=== PATIENT | female | born 1960 | race Caucasian/White ===

== ENCOUNTER → 2020-02-12 | Outpatient (CLI) | payer MEDICARE, SELFPAY ==
--- NOTE | 2020-02-12 09:02 | RAD_ITS ---
STUDY: X-RAY - LUMBAR SPINE REASON FOR EXAM: Female, 59 years old. BACK PAIN, BILATERAL LEG PAIN AND WEAKNESS TECHNIQUE: 3 view(s) of the lumbar spine were obtained. COMPARISON: None FINDINGS: Normal lumbar lordosis. There is no substantial scoliosis. There is a grade 1 anterolisthesis of L4 relative to L5. There is endplate spondylosis of the visualized lower thoracic spine and L1. Normal disc space heights. The soft tissue structures are unremarkable. RAD/Lumbar Spine 2 or 3 Views IMPRESSION: Grade 1 anterolisthesis of L4 relative to L5. No evidence of associated spondylolysis. Disc spacing is preserved. Diffuse endplate spondylosis of the visualized lower thoracic spine and L1. Electronically Signed: Manish Darling MD at 20:38 EDT , Service support ,
== END | disposition home or self-care (01) ==
PROVIDERS: Referring Provider Anesthesiology Pain Medicine; Visit Provider Anesthesiology Pain Medicine
DX: M54.5 Low back pain (principal)
CPT/HCPCS: 72100

== ENCOUNTER 2020-02-18 10:19 | Outpatient (CLI) | payer MEDICARE, SELFPAY ==
--- NOTE | 2020-02-18 10:40 | MRI_ITS ---
STUDY: MRI LUMBAR SPINE WITHOUT CONTRAST REASON FOR EXAM: Female, 59 years old. BACK AND bilateral LEG PAIN TECHNIQUE: Standardized fat and water weighted pulse sequences were obtained in the sagittal and axial planes. COMPARISON: X-ray 02/12/2020 FINDINGS: T12-L1: Normal endplates. Normal disc height, hydration and morphology. Normal bilateral facet joints. Normal central canal and bilateral lateral recesses. Normal bilateral intervertebral neural foramina. Normal lumbar lordosis. There is no substantial scoliosis. Normal conus medullaris that terminates at the L1/L2. L1-2: Normal endplates. Normal disc height, hydration and morphology. Normal bilateral facet joints. Normal central canal and bilateral lateral recesses. Normal bilateral intervertebral neural foramina. L2-3: Normal endplates. Normal disc height, hydration and morphology. Normal bilateral facet joints. Normal central canal and bilateral lateral recesses. Normal bilateral intervertebral neural foramina. L3-4: Normal endplates. Normal disc height, hydration and morphology. Normal bilateral facet joints. Normal central canal and bilateral lateral recesses. Normal bilateral intervertebral neural foramina. L4-5: Moderate bilateral facet hypertrophy with the moderate ligament flavum hypertrophy. Mild bilobed disc protrusion produces mild spinal stenosis and moderate bilateral neural foraminal stenosis with abutment of the exiting L4 nerve roots bilaterally. L5-S1: Normal endplates. Normal disc height, hydration and morphology. Normal bilateral facet joints. Normal central canal and bilateral lateral recesses. Normal bilateral intervertebral neural foramina. Normal visualized sacral ala. Normal visualized paraspinous soft tissue structures. MRI/Spine Lumbar (Routine) IMPRESSION: Focal degenerative disc disease at L4/L5 as described above Electronically Signed: Eldon Cameron MD at 17:11 EDT Tel , Service support ,
== END 2020-04-09 19:00 | disposition home or self-care (01) ==
PROVIDERS: Referring Provider Anesthesiology Pain Medicine; Visit Provider Anesthesiology Pain Medicine
DX: M54.9 Dorsalgia, unspecified (principal); M79.606 Pain in leg, unspecified
CPT/HCPCS: 72148

== ENCOUNTER 2020-03-31 10:00 | Outpatient (RCR) | payer MEDICARE, SELFPAY ==
--- NOTE | 2020-03-11 11:26 | HP.PTEVAL ---
Patient's Visit Information AURORA SAWYER is a 59 year old F referred to Physical Therapy by Dr. Basil Waggoner MD with a diagnosis of BACK AND LEG PAIN. Date of Evaluation: 03/11/20 Physical Therapist: Nany Vogel PT, Cert MDT - Visit Plan Frequency: 2-3x /Week Duration: 4-6 Weeks Plan: AQUATIC THERAPY FOR PAIN RELIEF, POSTURE CORRECTION/STRENGTHENING, INSTRUCTION IN APPROPRIATE BODY MECHANICS AND ACTIVITY MODIFICATIONS. DLS STARTING WITH A NEUTRAL SPINE PROGRESSING ROM TOLERATED. HUNG LE ROM, STRETCHING AND STRENGTHENING. HEP INSTRUCTION. - Subjective Work/Leisure: UNEMPLOYEED. Disability: YES - FOR ABOUT 3 YEARS FOR HUNG SHOULDER DYSFUNCTION AND MULTI-JOINT ARTHRITIS. Present symptoms: HUNG LOW BACK AND HUNG LE SX'S RIGHT > LEFT. LE SX IS PAIN - NOT NUMBNESS OR TINGLING. Present since: YEARS. Pain Scale: WORST 9/10, LEAST 5/10. Currently: 6/10. Commenced as a result of: ARTHRITIS. Symptoms at onset: LOW BACK. Worse: WALKING, SITTING TOO LONG, BENDING, LIFTING, TWISTING, GETTING IN AND OUT OF THE TUB, RISING FROM SITTING, GETTING IN/OUT OF CAR, PROLONGED STANDING TO TRY TO COOK. Better: SITTING DOWN, ICE ON LOW BACK, HEAT ON LOW BACK, PAIN MEDICINE, LYING DOWN. Disturbed sleep: NO. Previous history/Previous treatment: PAIN MGMT, PHYSICAL THERAPY, INJECTIONS, ABLASION, CHIROPRACTOR - WITH LAST VISIT BEING ABOUT 2 MONTHS AGO. NO BACK SURGERY. RIGHT TKR ABOUT 10 YEARS AGO. ALL OF THESE INTERVENTIONS HAVE BEEN HELPFUL TO SOME DEGREE. WAS DOING PRETTY GOOD UNTIL MOVED HERE FROM [facility] IN JUN 2019. MOST RECENT ERICA WAS ABOUT 3 WEEKS AGO - ABOUT 50% HELPFUL. Coughing/sneezing/straining: POSITIVE. Gait: I WALK A LOT SLOWER AND PULL MY RIGHT LEG. DOES NOT USE ANY ASSISTIVE DEVICES. Difficulty initiating urinatin: YES - DR. WAGGONER IS AWARE. Accidents: FX'D NECK IN FALL ABOUT 20 YEARS AGO - NO SX. Unexplained weight loss: NO. Imaging: RECENT LUMBAR X-RAYS AND MRI'S - PATIENT REPORTS DR. WAGGONER TOLD HER THE SPACE FOR THE NERVES ARE NARROWED, SHE HAS A LOT OF ARTHRITIS AND THERE IS ESPECIALLY A PROBLEM AT L45. PMH: ARTHRITIS, ASTHMA, HUNG SHLD REPLACEMENTS, RIGHT TKR, ONE KIDNEY, HTN. OTHER: PATIENT REPORTS SHE WANTS TO GET BACK TO DOING THE THINGS SHE IS USE TO DOING. - Objective Sitting/Standing Posture: POOR. Lateral shift: NO. Relevant shift: N/A. Active Correction of posture: NE ACTIVELY BUT PASSIVELY IMMEDIATE DECREASE IN PAIN. Other Observations: INDEP GAIT INTO PT WITHOUT ANY ASSISTIVE DEVICES. DECREASED CADANCE. WIDE BASE OF SUPPORT. INDEP TRANSFER SIT TO STAND WITHOUT UE ASSIST BUT DIFFICULT AND PAINFUL. Motor deficit: HUNG LE STRENGTH GROSSLY 5/5 WITH MMT'ING EXCEPT RIGHT QUAD AND HUNG HIPS 4-/5. Sensory deficit: HUNG LE LIGHT TOUCH SENSATION INTACT AND SYMMETRICAL EXCEPT A SMALL AREA AROUND RIGHT KNEE SINCE TKR. ROM deficit: TIGHT HUNG HS'S AND GASTROC SOLEUS COMPLEX'S. RIGHT KNEE ROM IN SUPINE WITH A HEEL SLIDE = FULL EXT TO 109 DEG FLEX. LEFT KNEE 0 TO 121 DEG FLEX. Reflexes: NT. Dural Signs: NEGATIVE HUNG LE'S. Lumbar mvmt loss: flex - MOD. ext - MOD. R SG - MOD. L SG - MOD. PATIENT C/O INCREASED BACK AND POST LEG PAIN HUNG WITH LUMBAR FLEX AND EXT ROM TESTING. LIMITED MVMT BUT NO C/O INCREASED PAIN WITH LUMBAR HUNG SG TESTING. Core strength: POOR. TREATMENT: NEUROMUSCULAR REEDUCATION - RETRAINING OF MVMT AND POSTURE FOR SITTING, LYING AND STANDING ACTIVITIES. - Goals Goal 1:: DECREASE C/O BACK AND HUNG LE PAIN Goal Time Frame: 4-6 Weeks Goal 2:: IMPROVE PERSONAL CARE, LIFTING, WALKING, SITTING, STANDING, SOCIAL LIFE, TRAVEL AND HOMEMAKING FUNCTION. Goal Time Frame: 4-6 Weeks Goal 3:: INSTRUCT IN PROPHYLAXIS Goal Time Frame: 4-6 Weeks - Anticipated Interventions Patient/Client Instruction: Educate patient on: Condition, Plan of Care, Risk Factors, Benefits of Fitness Program For the Purpose of:: To improve self management Therapeutic Exercise to Include: Strength training, Body mechanics, Postural training, Flexibilty training, Neuromotor development, In an aquatic setting, Dynamic Lumbar Stabilization For the Purpose of:: To decrease pain, To improve muscle performance and motor function, To increase tolerance to activity/condition/position, To improve ability of physical actions for home/community/work/leisure, To improve gait and locomotor functions Thank you for the opportunity to evaluate your patient. For Medicare and Medicare HMO plans, please review the plan of care and approve it. It will need to be FAXED BACK to us at [phone] for Medicare purposes. For Medicare only, by signing this I certify the plan of care. Please let me know if there are questions or concerns regarding this plan of care. Physician Signature: Date:
--- NOTE | 2020-03-31 10:39 | HP.PTREVAL_ITS ---
Dr. Basil Ervin MD, It has been my pleasure to treat AURORA SAWYER over the last 7 visits for BACK AND LEG PAIN. Please see the progress note below for an update on the physical therapy plan of care! Subjective: PATIENT REPORTS SHE IS FEELING BETTER AND WANTS TO CONTINUE AQUATIC THERAPY. GOING OUT OF TOWN UNTIL 04/12/20. PATIENT REPORTS SHE HAS ACTUALLY BEEN ABLE TO DO HER WALKING [place] WHICH SHE WAS NOT ABLE TO DO AT ALL BEFORE. STATES SHE HAS ALSO BEEN ABLE TO STAND TO COOK IN THE KITCHEN INSTEAD OF SITTING ON A CHAIR. STILL GETTING UP TO 8/10 PAIN IN LOW BACK IF SHE DOES TOO MUCH OR BENDS WRONG. MOST OF THE PAIN IS IN THE BUTTOCK AREAS AND THE BACK OF THE LEGS. R>L. WHEN HER PAIN IS ITS LEAST SHE RATES IT 3/10. CONSTANT PAIN - ITS ALWAYS THERE. PATIENT IS EXPRESSING APPRECIATION FOR GETTING TO DO AQUATIC THERAPY. I FEEL SOME REALLY GOOD STUFF GOING ON. Objective/Function: PATIENT WAS SEEN TODAY FOR RE-ASSESSMENT OF PROGRESS TOWARD THE SET PT GOALS AND THE NEED FOR FURTHER PHYSICAL THERAPY VS READINESS FOR DISCHARGE. UPON EXAM TODAY: INDEP TRANSFER SIT TO STAND WITHOUT UE ASSIST BUT STILL A LITTLE PAINFUL. Motor deficit: HUNG LE STRENGTH GROSSLY 5/5 WITH MMT'ING EXCEPT RIGHT QUAD AND HUNG HIPS 4-/5. Sensory deficit: HUNG LE LIGHT TOUCH SENSATION INTACT AND SYMMETRICAL EXCEPT A SMALL AREA AROUND RIGHT KNEE SINCE TKR. ROM deficit: TIGHT HUNG HS'S AND GASTROC SOLEUS COMPLEX'S. RIGHT KNEE ROM IN SUPINE WITH A HEEL SLIDE = FULL EXT TO 108 DEG FLEX. LEFT KNEE 0 TO 120 DEG FLEX. Reflexes: NT. Dural Signs: NEGATIVE HUNG LE'S. Lumbar mvmt loss: flex - MIN. ext - MOD. R SG - MOD. L SG - MOD. PATIENT C/O INCREASED BACK AND POST LEG PAIN HUNG IN STANDING BEFORE ROM TESTING BUT NO C/O INCREASED PAIN WITH LUMBAR ROM TESTING TODAY. Core strength: POOR Plan Plan: Would recommend continued AT 1X/WE X 4-6 WEEKS at this time d/t progress made, however, room for greater improvements. Given I pool page to assist with transition to membership. *Add step ups next. *f/u with new HEP hip flexor/quad and LB stretches. AQUATIC THERAPY FOR PAIN RELIEF, POSTURE CORRECTION/STRENGTHENING, INSTRUCTION IN APPROPRIATE BODY MECHANICS AND ACTIVITY MODIFICATIONS. DLS STARTING WITH A NEUTRAL SPINE PROGRESSING ROM TOLERATED. HUNG LE ROM, STRETCHING AND STRENGTHENING. HEP INSTRUCTION. Goals Goal 1:: DECREASE C/O BACK AND HUNG LE PAIN Goal Time Frame: 4-6 Weeks Goal Progress: Progressing Goal 2:: IMPROVE PERSONAL CARE, LIFTING, WALKING, SITTING, STANDING, SOCIAL LIFE, TRAVEL AND HOMEMAKING FUNCTION. Goal Time Frame: 4-6 Weeks Goal Progress: Progressing Goal 3:: INSTRUCT IN PROPHYLAXIS Goal Time Frame: 4-6 Weeks Goal Progress: Progressing Anticipated Interventions Patient/Client Instruction: Educate patient on: Condition, Plan of Care, Risk Factors, Benefits of Fitness Program For the Purpose of:: To improve self management Therapeutic Exercise to Include: Strength training, Body mechanics, Postural training, Flexibilty training, Neuromotor development, In an aquatic setting, Dynamic Lumbar Stabilization For the Purpose of:: To decrease pain, To improve muscle performance and motor function, To increase tolerance to activity/condition/position, To improve ability of physical actions for home/community/work/leisure, To improve gait and locomotor functions Please do not hesitate to contact me at [phone] by phone or if you have questions or concerns regarding this new plan of care! Sincerely, Nany Vogel, PT, Cert MDT
--- NOTE | 2020-05-18 13:14 | HP.PT.NRP ---
AURORA SAWYER was seen in my office for initial evaluation on 03/11/20. The following Plan of Care was established for this patient: Initial Frequency: 2-3x /Week Initial Duration: 4-6 Weeks Patient/Client Instruction: Educate patient on: Condition, Plan of Care, Risk Factors, Benefits of Fitness Program For the Purpose of:: To improve self management Therapeutic Exercise to Include: Strength training, Body mechanics, Postural training, Flexibilty training, Neuromotor development, In an aquatic setting, Dynamic Lumbar Stabilization For the Purpose of:: To decrease pain, To improve muscle performance and motor function, To increase tolerance to activity/condition/position, To improve ability of physical actions for home/community/work/leisure, To improve gait and locomotor functions This patient was last seen in our office 03/31/20. Pertinent comments regarding their Physical therapy will appear below: 04/09/20 PATIENT CANCELLED CYNDIE'TS FOR NEXT WEEK DUE TO TESTING POSITIVE FOR COVID 19 ON 04/07/20. This patient has not returned to Physical Therapy and is appropriate to return to MD for further follow-up as needed. At this point I will be discontinuing this patient from physical therapy. I would be happy to see this patient again in the future if found appropriate by the physician. Thank you! Nany Vogel, PT, Cert MDT
== END 2020-03-31 19:00 | disposition home or self-care (01) ==
LOC: PT 10:00
PROVIDERS: Visit Provider Anesthesiology Pain Medicine
DX: M54.9 Dorsalgia, unspecified (principal); M79.606 Pain in leg, unspecified
CPT/HCPCS: 97112; 97113; 97162; 97164

== ENCOUNTER → 2020-04-01 | Outpatient (CLI) | payer MEDICARE, SELFPAY ==
[2016-08-06 16:03] VITALS: BMI 41.5
[2020-04-01 13:37] LABS: Amphetamine Urine VISTA NEGATIVE (<1000 ng/mL); Barbiturate Urine VISTA NEGATIVE (< 200 ng/mL); Benzodiazepine Urine VISTA NEGATIVE (< 200 ng/mL); Cocaine Urine VISTA NEGATIVE (< 300 ng/mL); Ecstacy Urine VISTA NEGATIVE (< 500 ng/mL); Methadone Urine VISTA NEGATIVE (< 300 ng/mL); PCP Urine VISTA NEGATIVE (< 25 ng/mL); THC Urine VISTA NEGATIVE (< 50 ng/mL); Vista UDS pH Range 6
== END | disposition home or self-care (01) ==
PROVIDERS: Referring Provider Anesthesiology Pain Medicine; Visit Provider Anesthesiology Pain Medicine
DX: F11.20 Opioid dependence, uncomplicated (principal)
CPT/HCPCS: 80307

== ENCOUNTER → 2020-04-05 | Outpatient (CLI) | payer MEDICARE, SELFPAY | END | disposition home or self-care (01) | LOC: MTDU 04-06 14:34 | PROVIDERS: PCP Family Medicine; Referring Provider Orthopaedic Surgery; Visit Provider Orthopaedic Surgery | DX: U07.1 COVID-19 (principal) | CPT/HCPCS: 87635; C9803; U0003 ==

== ENCOUNTER → 2020-08-02 10:38 | Outpatient (CLI) | payer MEDICARE, SELFPAY ==
[2020-08-02 12:40] LABS: Amphetamine Urine VISTA NEGATIVE (<1000 ng/mL); Barbiturate Urine VISTA NEGATIVE (< 200 ng/mL); Benzodiazepine Urine VISTA NEGATIVE (< 200 ng/mL); Cocaine Urine VISTA NEGATIVE (< 300 ng/mL); Ecstacy Urine VISTA NEGATIVE (< 500 ng/mL); Methadone Urine VISTA NEGATIVE (< 300 ng/mL); PCP Urine VISTA NEGATIVE (< 25 ng/mL); THC Urine VISTA NEGATIVE (< 50 ng/mL); Vista UDS pH Range 5
== END ==
PROVIDERS: PCP Family Medicine; Referring Provider Anesthesiology Pain Medicine; Visit Provider Anesthesiology Pain Medicine
DX: F11.20 Opioid dependence, uncomplicated (principal)
CPT/HCPCS: 80307

== ENCOUNTER → 2020-08-31 13:27 | Outpatient (CLI) | payer MEDICARE, SELFPAY ==
[2016-08-06 16:03] VITALS: BMI 41.5
--- NOTE | 2020-08-31 13:30 | RAD_ITS ---
STUDY: X-RAY - PELVIS AND RIGHT HIP REASON FOR EXAM: Female, 60 years old. HIP PAIN -- ORDER SAYS R SIDE, PT SAYS L SIDE TECHNIQUE: 3 views of the pelvis and hip. COMPARISON: 08/06/2016. FINDINGS: No acute fracture, dislocation or osseous destruction. Moderate bilateral hip joint space narrowing. No significant soft tissue swelling. IMPRESSION: No acute osseous abnormality. Moderate bilateral hip arthrosis. Electronically Signed: Kunal Cespedes MD at 17:16 EDT Tel , Service support , RAD/HIP, UNI W/ Pelvis 2-3 Views
== END ==
PROVIDERS: PCP Family Medicine; Referring Provider Anesthesiology Pain Medicine; Visit Provider Anesthesiology Pain Medicine
DX: M25.551 Pain in right hip (principal)
CPT/HCPCS: 73502

== ENCOUNTER → 2020-09-27 11:47 | Outpatient (CLI) | payer MEDICARE, SELFPAY ==
[2016-08-06 16:03] VITALS: BMI 41.5
--- NOTE | 2020-09-27 11:50 | RAD_ITS ---
STUDY: X-RAY - LUMBAR SPINE REASON FOR EXAM: Female, 60 years old. BACK PAIN TECHNIQUE: 2 view(s) of the lumbar spine were obtained. COMPARISON: 02/12/2020 FINDINGS: Normal lumbar lordosis. There is no substantial scoliosis. There is a normal alignment of the vertebrae from L1 L4. There is a grade 1 spondylolisthesis at L4-5. There is anatomic alignment from L5 to S1.. There is multilevel endplate spondylosis of the lumbar vertebrae. Normal disc space heights. There is no demonstrated fracture. The soft tissue structures are unremarkable. RAD/Lumbar Spine 2 or 3 Views IMPRESSION: Degenerative changes of the spine, as detailed above. No acute fracture Grade 1 spondylolisthesis at L4-5 Electronically Signed: Juan Mora MD at 12:15 EDT , Service support ,
== END ==
PROVIDERS: PCP Family Medicine; Referring Provider Anesthesiology Pain Medicine; Visit Provider Anesthesiology Pain Medicine
DX: M54.5 Low back pain (principal)
CPT/HCPCS: 72100

== ENCOUNTER → 2021-02-16 12:45 | Outpatient (CLI) | payer MEDICARE, SELFPAY ==
[2021-02-16 14:01] LABS: Amphetamine Urine VISTA NEGATIVE (<1000 ng/mL); Barbiturate Urine VISTA NEGATIVE (< 200 ng/mL); Benzodiazepine Urine VISTA NEGATIVE (< 200 ng/mL); Cocaine Urine VISTA NEGATIVE (< 300 ng/mL); Ecstacy Urine VISTA NEGATIVE (< 500 ng/mL); Methadone Urine VISTA NEGATIVE (< 300 ng/mL); PCP Urine VISTA NEGATIVE (< 25 ng/mL); THC Urine VISTA POSITIVE (< 50 ng/mL); Vista UDS pH Range 5
== END ==
PROVIDERS: PCP Family Medicine; Referring Provider Anesthesiology Pain Medicine; Visit Provider Anesthesiology Pain Medicine
DX: F11.20 Opioid dependence, uncomplicated (principal)
CPT/HCPCS: 80307

== ENCOUNTER 2021-07-05 16:58 | Emergency (ER) | payer MEDICARE, SELFPAY ==
[2021-07-05 16:58] VITALS: BP 150/102; PULSE 105; RESP 24; TEMP 36.4; O2SAT 97; BMI 44.6
[2021-07-05 17:00] VITALS: BP 150/102; PULSE 105; RESP 24; TEMP 36.4; O2SAT 97
--- NOTE | 2021-07-05 17:36 | EDS_ITS ---
HPI History of Present Illness Chief Complaint: Shortness of Breath Detail of Chief Complaint: Shortness of breath Informant: patient Narrative Narrative: Patient presents to the emergency department with complaint of shortness of breath for the last 4 to 5 days. Patient states she was diagnosed with COVID-19 5 or 6 days ago. Patient's had symptoms since the day she got her booster which was June 21. Patient complains of a dry cough. She just finished steroids today. She is vaccinated and booster against COVID-19. She is complaining of some diarrhea. Patient is worried that she feels short of breath with activity and exertion. She is worried that she may have a secondary pneumonia. Patient denies significant chest pain. She does have history of asthma. Patient has remote history of WPW with prior ablation. [facility] Medical History (Updated 07/05/21 @ 19:[address] Hilda Baker, ) Asthma COVID-19 vaccine series completed History of COVID-19 HTN (hypertension) Home Medications B-complex with vitamin C 1 cap PO DAILY 12/31/20 [History Last Taken Unknown] cholecalciferol (vitamin D3) 50 mcg (2,000 unit) capsule 50 mcg PO DAILY 12/31/20 [History Last Taken Unknown] coenzyme Q10 75 mg capsule 75 mg PO DAILY 12/31/20 [History Last Taken Unknown] hydrocodone-acetaminophen 5-325mg 5mg-325mg 1 tab PO PRN PRN tab 12/31/20 [History Last Taken Unknown] lisinopril 20 mg-hydrochlorothiazide 25 mg tablet 1 tab PO DAILY 12/31/20 [History Last Taken Unknown] magnesium 30 mg tablet 30 mg PO DAILY 12/31/20 [History Last Taken Unknown] meloxicam 7.5 mg tablet 7.5 mg PO DAILY tab 12/31/20 [History Last Taken Unknown] vitamin E 200 unit capsule 200 unit PO DAILY 12/31/20 [History Last Taken Unknown] doxycycline monohydrate 100 mg PO BID #20 capsule 07/05/21 [Rx Last Taken Unknown] Allergy/AdvReac Type Severity Reaction Status Date / Time aspirin Allergy Intermediate Rash, Verified 07/05/21 17:45 rhinitis, trouble breathing cat dander Allergy Intermediate Rash, Verified 07/05/21 17:45 rhinitis, trouble breathing horse dander Allergy Intermediate Rash, Verified 07/05/21 17:45 rhinitis, trouble breathing ragweed pollen Allergy Intermediate Rash, Verified 07/05/21 17:45 rhinitis, trouble breathing Penicillins Allergy Rash Verified 07/05/21 17:45 celecoxib [From Celebrex] AdvReac Vomiting Verified 07/05/21 17:45 SHINGLES VACCINATION Allergy Anaphylaxis Uncoded 07/05/21 17:45 Surgical History H/O knee surgery H/O shoulder surgery Social History household members: none housing: house pets and animals: No Smoking Status: Former smoker pack-years: 15 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 caffeine: Yes what type of physical activity do you participate in: none sandy/rastafari: Hindu seatbelt use: always do you feel safe at home: Yes ROS ROS ED Constitutional Constitutional ED: Reports systems reviewed and no addt'l complaints, except as documented; Denies body ache(s), change in weight or chills Eyes Eyes: Denies acute decrease in peripheral vision, change in vision, double vision or loss of vision ENT ENT ED: Reports none; Denies ear pain, lip swelling, loss taste/smell, neck pain, otalgia or sore throat Cardiovascular Cardiovascular: Reports none; Denies abdominal pain, chest pain with activity, leg edema, lightheadedness, palpitations, rapid heart rate or syncope Respiratory/Chest Respiratory/Chest: Reports none, cough and dyspnea; Denies change in mental status, dry cough, hemoptysis, shortness of breath at rest or shortness of breath with exertion Gastrointestinal Gastrointestinal: Reports none and diarrhea; Denies abdominal pain, change in stool character, hematemesis, hematochezia, melena, rectal bleeding or vomiting Genitourinary Genitourinary ED: Reports none; Denies abdominal discomfort, anuria, dysuria, genital pain or polyuria Musculoskeletal Musculoskeletal: Reports none; Denies arthralgias, back pain, difficulty walking, extremity pain, muscle weakness or myalgias Integumentary Reports none; Denies abscess or rash Neurologic Neurologic: Reports none; Denies abnormal gait, confusion, focal weakness, frequent falls, headache(s), loss of vision, numbness, paresthesias, radicular pain, vertigo or weakness Psychiatric Psychiatric: Reports systems reviewed and no addt'l complaints, except as documented and none; Denies behavioral changes, confusion, difficulty concentrating, hallucinations, suicidal ideation, tactile hallucinations or visu al hallucinations Endocrine Endocrinology: Denies none, cold intolerance, excessive sweating, fatigue or heat intolerance Hematologic/Lymphatic Hematologic/Lymphatic: Reports none; Denies anemia, easy bleeding or easy bruising Allergic/Immunologic Allergic/Immunologic ED: Denies as per HPI, none, lip swelling, mouth swelling, throat swelling, tongue swelling or hives EXAM Physical Exam Const Vital Signs: 07/05/21 16:58 07/05/21 17:00 07/05/21 18:00 Temperature 97.6 F L 97.6 F L 97.9 F Temperature Source Temporal Temporal Temporal Pulse Rate 105 H 105 H 81 Respiratory Rate 24 H 24 H 18 Respiratory Effort Blood Pressure 150/102 H 150/102 H 159/77 H Blood Pressure Mean 118 118 104 Pulse Ox 97 97 98 Oxygen Delivery Method Room Air Room Air Room Air 07/05/21 18:27 Temperature Temperature Source Pulse Rate Respiratory Rate Respiratory Effort Normal Blood Pressure Blood Pressure Mean Pulse Ox Oxygen Delivery Method Room Air Positive well nourished and well developed General Appearance ED: well developed and NAD HEENT Reports TM's clear and moist mucous membranes normocephalic and atraumatic; Negative for trauma or tenderness Tympanic Membrane ED: Yes TM's clear Eyes PERRL and EOMs intact bilaterally General Eye ED: Negative for pale conjunctiva or scleral icterus Neck no lymphadenopathy, supple and no JVD General: Negative for tenderness Chest Wall inspection of chest normal and palpation of chest normal Chest: Negative for tenderness Resp normal respiratory effort and clear to auscultation bilaterally Resp Narrative: Patient with some faint expiratory wheezes on exam. No conversational dyspnea. No accessory muscle use or retractions. Effort and Inspection: Negative for respiratory distress or pain with movement Auscultation: wheezes; Negative for rhonchi or diminished lung sounds Cardio regular rate, regular rhythm, S1 normal heart sound, S2 normal heart sound and no murmurs Peripheral Pulses: pulses 2+ throughout GI normal to inspection, nondistended, normoactive bowel sounds, soft to palpation, non-tender, non-distended and no masses Back/Spine no CVA tenderness and no thoracic nor lumbar tenderness Extremity normal to inspection General Extremety ED: Negative for edema General Extremity: Negative for edema Neuro oriented x3, CN's II-XII intact bilaterally, no sensory deficits noted and gait normal Sensorium / Orientation: awake, alert, oriented to person, oriented to place and oriented to time Motor Exam: strength 5/5 throughout and strength abnormal Psych mental status grossly normal Skin no rashes or lesions noted and no wounds MDM MDM MDM Narrative Medical decision making narrative: IV line established on arrival. Patient's lab work-up significant for slightly elevated white blood cell count of 13.3 which may be related to steroid use versus infectious etiology. Patient's D- dimer was normal. Chest x-ray was normal. Troponin was negative. At this point patient was started on doxycycline given first dose in the emergency department. This is patient's second go around with COVID and she states she was somewhat of a long-haul her the first time she had COVID. I will cover her with doxycycline and advised her to follow-up with her primary care physician within the next 3 to 5 days. Patient advised to return if increasing shortness of breath or condition should worsen anyway. Lab Data Attestation: I reviewed the patient's lab results. Labs: Laboratory Results - last 24 hr 07/05/21 07/05/21 07/05/21 17:33 17:33 17:33 WBC 13.3 H RBC 4.04 L Hgb 12.1 Hct 37.2 MCV 92.1 MCH 30.0 MCHC 32.5 RDW Std Deviation 43.5 RDW Coeff of Jassi 13.0 Plt Count 382 MPV 9.7 Immature Gran % (Auto) 2.000 H Neut % (Auto) 76.4 H Lymph % (Auto) 16.9 L [place] % (Auto) 4.1 Eos % (Auto) 0.2 Baso % (Auto) 0.4 Absolute Neuts (auto) 10.2 H Absolute Lymphs (auto) 2.25 Nucleated RBC % 0 D-Dimer Quant (PE/DVT) 0.33 Sodium 138 Potassium 4.0 Chloride 101 Carbon Dioxide 28.0 Anion Gap 9 BUN 21 H Creatinine 1.03 H Estim Creat Clear Calc 49.53 Est GFR (MDRD) Af Amer 70 Est GFR (MDRD) Non-Af 58 L BUN/Creatinine Ratio 20.4 H Glucose 130 H Lactic Acid Calcium 9.9 Troponin I High Sens 5 07/05/21 17:33 WBC RBC Hgb Hct MCV MCH MCHC RDW Std Deviation RDW Coeff of Jassi Plt Count MPV Immature Gran % (Auto) Neut % (Auto) Lymph % (Auto) [place] % (Auto) Eos % (Auto) Baso % (Auto) Absolute Neuts (auto) Absolute Lymphs (auto) Nucleated RBC % D-Dimer Quant (PE/DVT) Sodium Potassium Chloride Carbon Dioxide Anion Gap BUN Creatinine Estim Creat Clear Calc Est GFR (MDRD) Af Amer Est GFR (MDRD) Non-Af BUN/Creatinine Ratio Glucose Lactic Acid 1.5 Calcium Troponin I High Sens Radiography Chest X-Ray - ED: 1 View Diagnostic Testing: Clinical Impression(s) from Imaging Studies Chest X-Ray 07/05/21 17:55 IMPRESSION: There are no acute findings. Electronically Signed: Prateek Byers MD at 18:24 EST , Service support , 1 view chest x-ray obtained interpreted by myself no acute disease process. Radiology in agreement. EKG Initial EKG: Attestation: I personally reviewed and interpreted this EKG as follows: Comments: Sinus rhythm with ventricular rate of 89 bpm with no acute ST segment changes Discharge Plan Triage Chief Complaint: Shortness of Breath ED Provider: Hilda Baker Dx/Rx/DC Orders Clinical Impression: History of COVID-19, AB (asthmatic bronchitis) Instructions: ED Upper Resp Infec Abx Tx, ED Bronchitis with Wheezing (Adult) Prescriptions: New doxycycline monohydrate 100 MG capsule 100 mg PO BID Qty: 20 RF: 0 No Action Ultra CoQ10 75 mg capsule 75 mg PO DAILY RF: 0 B-complex with vitamin C Capsule 1 cap PO DAILY RF: 0 cholecalciferol (vitamin D3) 50 mcg (2,000 unit) capsule 50 mcg PO DAILY RF: 0 vitamin E 200 unit capsule 200 unit PO DAILY RF: 0 magnesium 30 mg tablet 30 mg PO DAILY RF: 0 hydrocodone-acetaminophen 5-325 mg tablet 1 tab PO PRN PRN (Reason: Pain) RF: 0 meloxicam 7.5 mg tablet 7.5 mg PO DAILY RF: 0 lisinopril-hydrochlorothiazide 20-25 mg tablet 1 tab PO DAILY RF: 0 Primary Care Provider: Freeman Zamudio Referrals: Freeman Zamudio MD [Primary Care Provider] - 3-5 Days Disposition Disposition: Home, Self Care
--- NOTE | 2021-07-05 17:36 | EKG12_ITS ---
Test Reason : SOB Blood Pressure : / mmHG Vent. Rate : 089 BPM Atrial Rate : 089 BPM P-R Int : 180 ms QRS Dur : 086 ms QT Int : 364 ms P-R-T Axes : 059 016 047 degrees QTc Int : 442 ms Normal sinus rhythm Low voltage QRS Borderline ECG Confirmed by NORIS JARRELL, GATO ([id number]), editor in chief EDOUARD VANESSA ([id number]) on 07/06/2021 10:10:38 AM Referred By: KLAUDIA Confirmed By:GATO HAMM MD
--- NOTE | 2021-07-05 17:44 | NURSING ---
NO OLD EKGS
--- NOTE | 2021-07-05 17:55 | RAD_ITS ---
STUDY: X-RAY CHEST REASON FOR EXAM: Female, 61 years old. Technologist Notes PT HAS BEEN SICK SINCE JUN 21. POS COVID LAST WEEK DONE WITH STEROID TREATMENT AND STILL SOB dyspnea TECHNIQUE: XR Chest 1 View COMPARISON: None FINDINGS: There is no demonstrated pleural abnormality. There is no pneumothorax. Total bilateral shoulder arthroplasty. Normal size heart. Normal mediastinum and shruthi. Normal visualized pulmonary arteries. There is atherosclerotic calcification of the aortic arch with tortuosity. There are diffuse degenerative changes of the visualized thoracic spine. There is degenerative osteoarthritis of the bilateral shoulders. There is no demonstrated abnormality of the visualized soft tissue structures of the upper abdomen. RAD/Chest 1 View (Portable) IMPRESSION: There are no acute findings. Electronically Signed: Prateek Byers MD at 18:24 EST , Service support ,
[2021-07-05 18:00] VITALS: BP 159/77; PULSE 81; RESP 18; TEMP 36.6; O2SAT 98
[2021-07-05 18:20] LABS: Absolute Lymphocyte Count 2.25 X10^3/uL (0.83-4.51); Absolute Neutrophil Count 10.2 X10^3/uL (2.0-7.7); Basophil# 0.05 X10^3/uL; Basophil% 0.4 % (0-1); Eosinophil# 0.03 X10^3/uL; Eosinophils% 0.2 % (0-5); Hematocrit 37.2 % (37-47); Hemoglobin 12.1 g/dL (12.0-15.0); Lymphocyte # 2.25 X10^3/ul (0.83-4.51); Lymphocyte % 16.9 % (19-41); Mean Corp Hgb Conc 32.5 g/dL (32-36); Mean Corpuscular Volume 92.1 fL (81-99); Mean Platelet Vol. 9.7 fl (6.2-12.0); Monocyte# 0.55 X10^3/uL; Monocyte% 4.1 % (0-10); NRBC Flagged by Analyzer 0 % (0-5); Neutrophil # 10.19 X10^3/uL (2.7-7.7); Neutrophil % 76.4 % (47-70); Platelet Count 382 K/mm3 (150-450); RBC Distribution Width SD 43.5 fl (35.1-43.9); Red Blood Count 4.04 M/mm3 (4.2-5.4); White Blood Count 13.3 K/mm3 (4.4-11.0)
[2021-07-05 18:27] VITALS: O2SAT 98
[2021-07-05] MEDS: 0.9% Normal Saline 1,000 ML 150 ML IV (18:29)
[2021-07-05 18:30] LABS: D-Dimer Quantitative (DVT/PE) 0.33 FEU/ug/m (0.27-0.49)
[2021-07-05 18:38] LABS: Lactic Acid 1.5 mmol/L (0.4-1.9)
[2021-07-05 18:49] LABS: Anion Gap 9 (5-15); BUN 21 mg/dL (7-18); BUN/Creat Ratio 20.4 RATIO (10-20); Calcium,Total 9.9 mg/dL (8.5-10.1); Chloride 101 mmol/L (98-107); Creatinine, Serum 1.03 mg/dL (0.55-1.02); EST Glomerular Filtration Rate 58 mL/min (>60); Est Glom Filt Rate - Afr Amer 70 mL/min (>60); Estimated Creatinine Clearance 49.53 ml/min; Glucose 130 mg/dL (74-106); Sodium Level 138 mmol/L (136-145); Troponin-I HS 5 pg/mL (3.0-54.0)
[2021-07-05] MEDS: Doxycycline 100 MG CAPSULE PO (19:26)
== END 2021-07-05 19:27 | disposition home or self-care (01) ==
PROVIDERS: Emergency Provider Emergency Medicine; PCP Family Medicine; Visit Provider Emergency Medicine
DX: J45.909 Unspecified asthma, uncomplicated (principal); R19.7 Diarrhea, unspecified; Z87.891 Personal history of nicotine dependence; I10 Essential (primary) hypertension; Z86.16 Personal history of COVID-19; Z79.899 Other long term (current) drug therapy
CPT/HCPCS: 71045; 80048; 83605; 84484; 85025; 85379; 87040; 93005; 96360; 99285; J7030

== ENCOUNTER → 2021-11-28 | Outpatient (CLI) | payer MEDICARE, SELFPAY ==
[2021-11-28 14:13] LABS: OXY Internal Control LINE = VALID (VALID); Oxycodone Drug Screen Negative (<100 ng/mL)
[2021-11-28 14:17] LABS: Amphetamine Urine VISTA NEGATIVE (<1000 ng/mL); Barbiturate Urine VISTA NEGATIVE (< 200 ng/mL); Benzodiazepine Urine VISTA NEGATIVE (< 200 ng/mL); Cocaine Urine VISTA NEGATIVE (< 300 ng/mL); Ecstacy Urine VISTA NEGATIVE (< 500 ng/mL); Methadone Urine VISTA NEGATIVE (< 300 ng/mL); PCP Urine VISTA NEGATIVE (< 25 ng/mL); THC Urine VISTA NEGATIVE (< 50 ng/mL); Vista UDS pH Range 6
== END | disposition home or self-care (01) ==
PROVIDERS: PCP Family Medicine; Visit Provider Anesthesiology Pain Medicine
DX: F11.20 Opioid dependence, uncomplicated (principal)
CPT/HCPCS: 80307; 80365; G0480

== ENCOUNTER 2022-03-16 14:16 | Emergency (ER) | payer MEDICARE, SELFPAY ==
[2022-03-16 14:17] VITALS: BP 143/90; PULSE 96; RESP 18; TEMP 37.2; O2SAT 97; BMI 47.5
--- NOTE | 2022-03-16 14:38 | ED.VIS.DYS ---
HPI History of Present Illness Chief Complaint: Shortness of Breath Informant: patient Onset/Context/Timing Onset: Weeks (1) Context: gradual Timing: Continuous Quality: Positive for Dyspnea on exertion Worsened by: Exertion and - (Talking) Relieved by: - (Samia-Cressona) Associated Symptoms cough; Negative for rhinorrhea, post nasal drip, ear pain, fever, sore throat, chills, sweats, clear sputum, white sputum, yellow sputum or green sputum Chest Pain: Positive for None Narrative Narrative: AutoPatient presents with shortness of breath that has been getting worse over the past week. Patient states that anytime she walks anywhere she breath. Patient has been using a walker so that she can stop and catch her breath. Patient states she feels some drainage in the back of her throat. Patient states she is coughing up some sick/hard and sputum. Patient denies any fevers or chills. Patient states she took some Samia-Cressona which seemed to help. Patient states she has pain that goes into her back. Patient states she has a history of chronic back pain and sees pain management for that. Patient is on a Duragesic patch but states this is not helping with her back pain. PE Risk Factors: Negative for Cancer, OCP + Smoking + > 35, Prior DVT or PE, Recent immobilization, Recent surgery or Recent travel [facility] Medical History Asthma COVID-19 vaccine series completed History of COVID-19 HTN (hypertension) Home Medications B-complex with vitamin C 1 cap PO DAILY 12/31/20 [History Last Taken Unknown] cholecalciferol (vitamin D3) 50 mcg (2,000 unit) capsule 50 mcg PO DAILY 12/31/20 [History Last Taken Unknown] coenzyme Q10 75 mg capsule (Ultra CoQ10) 75 mg PO DAILY 12/31/20 [History Last Taken Unknown] hydrocodone-acetaminophen 5-325mg 5mg-325mg 1 tab PO PRN PRN Pain 12/31/20 [History Last Taken Unknown] lisinopril 20 mg-hydrochlorothiazide 25 mg tablet 1 tab PO DAILY 12/31/20 [History Last Taken Unknown] magnesium 30 mg tablet 30 mg PO DAILY 12/31/20 [History Last Taken Unknown] meloxicam 7.5 mg tablet 7.5 mg PO DAILY 12/31/20 [History Last Taken Unknown] vitamin E 200 unit capsule 200 unit PO DAILY 12/31/20 [History Last Taken Unknown] doxycycline monohydrate 100 mg capsule 100 mg PO BID #20 CAPSULES 07/05/21 [Rx Last Taken Unknown] albuterol sulfate 2.5 mg/3 mL (0.083 %) solution for nebulization 2.5 mg (3 mL) inhalation Q4H PRN #25 vials 03/16/22 [Rx Last Taken Unknown] Allergy/AdvReac Type Severity Reaction Status Date / Time aspirin Allergy Intermediate Rash, Verified 07/05/21 17:45 rhinitis, trouble breathing cat dander Allergy Intermediate Rash, Verified 07/05/21 17:45 rhinitis, trouble breathing horse dander Allergy Intermediate Rash, Verified 07/05/21 17:45 rhinitis, trouble breathing ragweed pollen Allergy Intermediate Rash, Verified 07/05/21 17:45 rhinitis, trouble breathing Penicillins Allergy Rash Verified 07/05/21 17:45 celecoxib [From Celebrex] AdvReac Vomiting Verified 07/05/21 17:45 SHINGLES VACCINATION Allergy Anaphylaxis Uncoded 07/05/21 17:45 Surgical History H/O knee surgery H/O shoulder surgery Social History household members: none housing: house pets and animals: No Smoking Status: Former smoker pack-years: 15 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 caffeine: Yes what type of physical activity do you participate in: none sandy/religious: Denominational seatbelt use: always do you feel safe at home: Yes ROS ROS ED Constitutional Constitutional ED: Denies chills or fever(s) Eyes Eyes: Denies blurry vision or change in vision ENT ENT ED: Denies rhinorrhea or sore throat Cardiovascular Cardiovascular: Denies chest pain or palpitations Respiratory/Chest Respiratory/Chest: Reports cough and dyspnea Gastrointestinal Gastrointestinal: Denies nausea or vomiting Genitourinary Genitourinary ED: Denies dysuria or hematuria Musculoskeletal Musculoskeletal: Reports back pain; Denies neck pain Integumentary Denies abscess or rash Neurologic Neurologic: Denies headache(s) or weakness Allergic/Immunologic Allergic/Immunologic ED: Denies mouth swelling or urticaria EXAM Physical Exam Const Vital Signs: 03/16/22 14:17 03/16/22 14:53 03/16/22 14:54 Temperature 98.9 F Temperature Source Temporal Pulse Rate 96 100 Respiratory Rate 18 16 Respiratory Effort Labored Respiratory Depth Shallow Respiratory Pattern Tachypnea Blood Pressure 143/90 H 144/90 H Blood Pressure Mean 107 108 Pulse Ox 97 99 Oxygen Delivery Method Room Air Room Air Room Air 03/16/22 15:02 Temperature Temperature Source Pulse Rate 85 Respiratory Rate 20 H Respiratory Effort Respiratory Depth Respiratory Pattern Normal Blood Pressure Blood Pressure Mean Pulse Ox Oxygen Delivery Method Positive well nourished, well developed and obese General Appearance ED: well developed and NAD Nutritional Appearance: obese HEENT Reports moist mucous membranes Neck supple and no JVD Resp normal respiratory effort and clear to auscultation bilaterally Cardio regular rate, regular rhythm and no murmurs GI normal to inspection, nondistended, normoactive bowel sounds and non-tender Palpation: soft Extremity normal to inspection General Extremety ED: Negative for edema or tenderness General Extremity: Negative for edema Neuro oriented x3, CN's II-XII intact bilaterally and no sensory deficits noted Sensorium / Orientation: alert Motor Exam: strength 5/5 throughout Psych mental status grossly normal Skin no rashes or lesions noted MDM MDM MDM Narrative Medical decision making narrative: Patient was given a DuoNeb aerosol here. Patient was given a dose of morphine. Patient EKG was obtained. On my interpretation, it showed a normal sinus rhythm with a rate of 85. LA interval, QRS interval, and QTc intervals were all normal. [place] was normal. There are no acute ST or T wave changes. CBC shows a mild anemia with a hemoglobin of 10.8 and hematocrit 32.8. Basic metabolic profile was within normal limits. High-sensitivity troponin was normal. B natruretic peptide was normal. CTA of the chest was obtained. There is no evidence of pulmonary embolism or aortic dissection. There is some linear atelectasis and/or scarring in the lingular segment of the left upper lobe. There is no other acute process noted. This was interpreted by the radiologist and reviewed by myself. Patient was feeling better on reevaluation. Patient was ambulated here in the emergency department. Patient maintained an oxygen saturation above 90% while ambulating. Patient states that she is out of of her albuterol nebulizer solution. Patient was given a prescription for refills for this. Patient was instructed to follow-up with her primary care physician in 5 to 7 days. Patient understood and was agreeable with the plan. All questions were answered. Lab Data Attestation: I reviewed the patient's lab results. Labs: Laboratory Results - last 24 hr 03/16/22 03/16/22 03/16/22 14:45 14:45 14:45 WBC 8.2 RBC 3.51 L Hgb 10.8 L Hct 32.8 L MCV 93.4 MCH 30.8 MCHC 32.9 RDW Std Deviation 43.8 RDW Coeff of Jassi 12.9 Plt Count 295 MPV 9.6 Immature Gran % (Auto) 1.000 H Neut % (Auto) 64.8 Lymph % (Auto) 20.9 [place] % (Auto) 10.7 H Eos % (Auto) 2.2 Baso % (Auto) 0.4 Absolute Neuts (auto) 5.3 Absolute Lymphs (auto) 1.71 Nucleated RBC % 0 Sodium 137 Potassium 4.4 Chloride 102 Carbon Dioxide 30.0 Anion Gap 5 BUN 11 Creatinine 0.86 Estim Creat Clear Calc 59.32 Est GFR (MDRD) Af Amer 86 Est GFR (MDRD) Non-Af 71 BUN/Creatinine Ratio 12.8 Glucose 88 Calcium 9.7 Troponin I High Sens 5 B-Natriuretic Peptide 14.8 Radiography Diagnostic Testing: Clinical Impression(s) from Imaging Studies Chest CTA 03/16/22 15:15 IMPRESSION: No evidence of a pulmonary embolism. Findings suggestive of either linear atelectasis and/or scarring in the posterior aspect of the lingular segment of the left upper lobe. Electronically Signed: Victoriano Vera MD at 15:41 EDT , EKG Initial EKG: Attestation: I personally reviewed and interpreted this EKG as follows: Interpretation: Sinus Rhythm (85) and No Acute Injury Pattern Prior EKG tracings: available for review Prior: Unchanged (07/05/2021) Discharge Plan Triage Chief Complaint: Shortness of Breath ED Provider: Lenin Mccloud Dx/Rx/DC Orders Clinical Impression: Dyspnea, HTN (hypertension), Morbid obesity with BMI of 45.0-49.9, adult Instructions: ED Dyspnea Prescriptions: New albuterol sulfate 2.5 mg /3 mL (0.083 %) solution for nebulization 2.5 mg inhalation Q4H PRN Qty: 25 0RF Rx Instructions: Use q4 hours and PRN for wheezing No Action Ultra CoQ10 75 mg capsule 75 mg PO DAILY B-complex with vitamin C Capsule 1 cap PO DAILY cholecalciferol (vitamin D3) 50 mcg (2,000 unit) capsule 50 mcg PO DAILY vitamin E 200 unit capsule 200 unit PO DAILY magnesium 30 mg tablet 30 mg PO DAILY hydrocodone-acetaminophen 5-325 mg tablet 1 tab PO PRN PRN (Reason: Pain) meloxicam 7.5 mg tablet 7.5 mg PO DAILY Label Comments: take 1 tablet by mouth once daily lisinopril-hydrochlorothiazide 20-25 mg tablet 1 tab PO DAILY doxycycline monohydrate 100 MG capsule 100 mg PO BID Qty: 20 0RF Primary Care Provider: Freeman Zamudio Referrals: Freeman Zamudio MD [Primary Care Provider] - 3-5 Days Disposition Disposition: Home, Self Care
--- NOTE | 2022-03-16 14:41 | EKG12_ITS ---
Test Reason : Blood Pressure : / mmHG Vent. Rate : 085 BPM Atrial Rate : 085 BPM P-R Int : 204 ms QRS Dur : 092 ms QT Int : 368 ms P-R-T Axes : 062 041 056 degrees QTc Int : 437 ms Normal sinus rhythm Normal ECG Confirmed by GATO HAMM MD ([id number]), greeting card editor EDOUARD VANESSA ([id number]) on 03/17/2022 10:39:14 AM Referred By: ROGER Confirmed By:GATO HAMM MD
[2022-03-16 14:52] LABS: Absolute Lymphocyte Count 1.71 X10^3/uL (0.83-4.51); Absolute Neutrophil Count 5.3 X10^3/uL (2.0-7.7); Basophil# 0.03 X10^3/uL; Basophil% 0.4 % (0-1); Eosinophil# 0.18 X10^3/uL; Eosinophils% 2.2 % (0-5); Hematocrit 32.8 % (37-47); Hemoglobin 10.8 g/dL (12.0-15.0); Lymphocyte # 1.71 X10^3/ul (0.83-4.51); Lymphocyte % 20.9 % (19-41); Mean Corp Hgb Conc 32.9 g/dL (32-36); Mean Corpuscular Hgb 30.8 pg (27.0-32.0); Mean Corpuscular Volume 93.4 fL (81-99); Mean Platelet Vol. 9.6 fl (6.2-12.0); Monocyte# 0.88 X10^3/uL; Monocyte% 10.7 % (0-10); NRBC Flagged by Analyzer 0 % (0-5); Neutrophil # 5.31 X10^3/uL (2.7-7.7); Neutrophil % 64.8 % (47-70); Platelet Count 295 K/mm3 (150-450); RBC Distribution Width CV 12.9 % (11.6-14.6); RBC Distribution Width SD 43.8 fl (35.1-43.9); Red Blood Count 3.51 M/mm3 (4.2-5.4); White Blood Count 8.2 K/mm3 (4.4-11.0)
[2022-03-16 14:53] VITALS: BP 144/90; PULSE 100; RESP 16; O2SAT 99
[2022-03-16 14:54] VITALS: O2SAT 96
[2022-03-16 15:02] VITALS: PULSE 85; RESP 20
[2022-03-16] MEDS: Ipratropium/Albuterol Sulfate 3 ML AMPUL.NEB INHALATION (15:02)
[2022-03-16 15:09] LABS: Anion Gap 5 (5-15); BUN 11 mg/dL (7-18); BUN/Creat Ratio 12.8 RATIO (10-20); Calcium,Total 9.7 mg/dL (8.5-10.1); Chloride 102 mmol/L (98-107); Creatinine, Serum 0.86 mg/dL (0.55-1.02); EST Glomerular Filtration Rate 71 mL/min (>60); Est Glom Filt Rate - Afr Amer 86 mL/min (>60); Estimated Creatinine Clearance 59.32 ml/min; Glucose 88 mg/dL (74-106); Potassium 4.4 mmol/L (3.5-5.1); Sodium Level 137 mmol/L (136-145); Troponin-I HS 5 pg/mL (3.0-54.0)
[2022-03-16 15:11] LABS: BNP,B-Type NATRIURETIC PEPTIDE 14.8 pg/mL (0-100)
--- NOTE | 2022-03-16 15:15 | CT_ITS ---
STUDY: CTA CHEST REASON FOR EXAM: Female, 61 years old. PE. Shortness of breath. RADIATION DOSAGE (If Supplied By Facility): CTDIvol = ( 12.66 ) mGy, DLP = ( 567.16 ) mGycm TECHNIQUE: The examination was performed with the intravenous administration of IV 100mL Isovue-370. Post-processing of the angiographic images was performed, with multiplanar reformation and 3D reconstruction. Individualized dose optimization techniques were used for this CT. COMPARISON: None. FINDINGS: Normal enhancement of the main pulmonary artery and right and left pulmonary arteries. Normal enhancement of the bilateral peripheral pulmonary arteries. There is no demonstrated pulmonary embolism. There is minimal atherosclerotic calcification of the aortic arch with tortuosity. There is no demonstrated aortic dissection. Normal heart and pericardium. Normal mediastinum. Normal hilar regions. Normal visualized trachea and bronchi. The lungs are well expanded. Increased linear markings seen in the posterior aspect of the lingular segment of the left upper lobe abutting the fissure. This most likely represents focal area of scarring or atelectasis. Normal pleura. Normal chest wall structures. There are degenerative changes of thoracic spine. Normal visualized upper abdomen. CT/CTA Chest W/WO Contrast IMPRESSION: No evidence of a pulmonary embolism. Findings suggestive of either linear atelectasis and/or scarring in the posterior aspect of the lingular segment of the left upper lobe. Electronically Signed: Victoriano Vera MD at 15:41 EDT ,
[2022-03-16] MEDS: Morphine 4 MG/ML Syringe IV (16:04)
[2022-03-16 16:29] VITALS: BP 142/91; PULSE 88; RESP 16; O2SAT 87; O2SAT 97
== END 2022-03-16 16:36 | disposition home or self-care (01) ==
PROVIDERS: Emergency Provider Emergency Medicine; PCP Family Medicine; Visit Provider Emergency Medicine
DX: R06.02 Shortness of breath (principal); E66.01 Morbid (severe) obesity due to excess calories; Z68.42 Body mass index [BMI] 45.0-49.9, adult; M54.9 Dorsalgia, unspecified; G89.29 Other chronic pain; Z87.891 Personal history of nicotine dependence; I10 Essential (primary) hypertension; Z79.899 Other long term (current) drug therapy
CPT/HCPCS: 71275; 80048; 83880; 84484; 85025; 87428; 93005; 94640; 96374; 99284; Q9967; A4216

== ENCOUNTER 2022-05-28 09:47 | Emergency (ER) | payer MEDICARE, SELFPAY ==
[2022-05-28] VITALS (8 sets, daily range): BP systolic 154–189; BP diastolic 70–108; PULSE 71–85; RESP 16–26; TEMP 36.3; O2SAT 94–97; BMI 45.8
--- NOTE | 2022-05-28 10:14 | EKG12_ITS ---
Test Reason : SOB Blood Pressure : / mmHG Vent. Rate : 073 BPM Atrial Rate : 073 BPM P-R Int : 176 ms QRS Dur : 086 ms QT Int : 388 ms P-R-T Axes : 060 023 052 degrees QTc Int : 427 ms Normal sinus rhythm Normal ECG Confirmed by NORIS JARRELL, GATO ([id number]), scientific publications editor EDOUARD VANESSA ([id number]) on 05/30/2022 11:26:36 AM Referred By: ALMITA Confirmed By:GATO HAMM MD
--- NOTE | 2022-05-28 10:16 | EDS_ITS ---
HPI History of Present Illness Chief Complaint: Shortness of Breath Informant: patient Narrative Narrative: This patient presents with dyspnea. Patient has a history of asthma. She has nebulizer at home. She has all her medicines but is close to running out. She has not yet run out. This past Sunday, she started to get a dry cough. Sunday she got a harsher cough and had fevers. She tested positive for influenza A. She has finished 5 days of Tamiflu and 5 days of prednisone. She is still having significant wheezing. She states if she sits down still she does not feel that short of breath but if she tries to get up and move the wheezing and dry cough worsens and she has trouble breathing. She does not have oxygen. She has no history of coronary artery disease. 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 She has bringing up mostly clear with occasional green sputum. She states the fevers have finally stopped over the last 24 hours or so. Breathing treatments helped this but do not resolve it. Nothing really makes it worse. [facility] Medical History Asthma COVID-19 vaccine series completed History of COVID-19 HTN (hypertension) Home Medications B-complex with vitamin C 1 cap PO DAILY 12/31/20 [History Last Taken Unknown] cholecalciferol (vitamin D3) 50 mcg (2,000 unit) capsule 50 mcg PO DAILY 12/31/20 [History Last Taken Unknown] coenzyme Q10 75 mg capsule (Ultra CoQ10) 75 mg PO DAILY 12/31/20 [History Last Taken Unknown] lisinopril 20 mg-hydrochlorothiazide 25 mg tablet 1 tab PO DAILY 12/31/20 [History Last Taken Unknown] magnesium 30 mg tablet 30 mg PO DAILY 12/31/20 [History Last Taken Unknown] vitamin E 200 unit capsule 200 unit PO DAILY 12/31/20 [History Last Taken Unknown] albuterol sulfate 2.5 mg/3 mL (0.083 %) solution for nebulization 2.5 mg (3 mL) inhalation Q4H PRN #25 vials 05/28/22 [Rx Last Taken Unknown] codeine 10 mg-guaifenesin 100 mg/5 mL oral liquid 5 ml PO Q4H PRN coughing fits #120 mL 05/28/22 [Rx Last Taken Unknown] prednisone 20 mg tablet 40 mg PO DAILY #10 tabs 05/28/22 [Rx Last Taken Unknown] Allergy/AdvReac Type Severity Reaction Status Date / Time aspirin Allergy Intermediate Rash, Verified 05/28/22 09:50 rhinitis, trouble breathing cat dander Allergy Intermediate Rash, Verified 05/28/22 09:50 rhinitis, trouble breathing horse dander Allergy Intermediate Rash, Verified 05/28/22 09:50 rhinitis, trouble breathing ragweed pollen Allergy Intermediate Rash, Verified 05/28/22 09:50 rhinitis, trouble breathing Penicillins Allergy Rash Verified 05/28/22 09:50 vaccine adjuvant system, Allergy Anaphylaxis Verified 05/28/22 09:50 AS01B liposomal [From Shingrix (PF)] varicella-zoster virus Allergy Anaphylaxis Verified 05/28/22 09:50 glycoprotein E, recombinant [From Shingrix (PF)] celecoxib [From Celebrex] AdvReac Vomiting Verified 05/28/22 09:50 Family History no significant family his Surgical History H/O knee surgery H/O shoulder surgery Social History household members: none housing: house pets and animals: No Smoking Status: Former smoker pack-years: 15 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 caffeine: Yes what type of physical activity do you participate in: none sandy/confucianist: Lutheran seatbelt use: always do you feel safe at home: Yes ROS ROS ED Constitutional Constitutional ED: Reports chills and fever(s) Eyes Eyes: Denies change in vision or diplopia ENT ENT ED: Reports rhinorrhea; Denies sore throat Cardiovascular Cardiovascular: Denies chest pain or palpitations Respiratory/Chest Respiratory/Chest: Reports cough, dyspnea and sputum Gastrointestinal Gastrointestinal: Denies abdominal pain, nausea or vomiting Genitourinary Genitourinary ED: Denies dysuria Musculoskeletal Musculoskeletal: Reports myalgias Integumentary Denies rash Neurologic Neurologic: Reports headache(s); Denies paresthesias or weakness Endocrine Endocrinology: Denies polydipsia or polyuria Hematologic/Lymphatic Hematologic/Lymphatic: Denies easy bruising Allergic/Immunologic Allergic/Immunologic ED: Denies urticaria EXAM Physical Exam Const Vital Signs: 05/28/22 09:47 05/28/22 10:06 05/28/22 10:25 Temperature 97.4 F L 97.4 F L Temperature Source Temporal Temporal Pulse Rate 80 80 Respiratory Rate 26 H 26 H Respiratory Effort Short of Breath Blood Pressure 189/108 H 189/108 H Blood Pressure Mean 135 135 Pulse Ox 97 97 Oxygen Delivery Method Room Air Room Air Room Air 05/28/22 11:02 05/28/22 11:02 05/28/22 10:20 Temperature 97.4 F L Temperature Source Temporal Pulse Rate 71 71 85 Respiratory Rate 18 18 20 H Respiratory Effort Blood Pressure 186/76 H 186/76 H Blood Pressure Mean 112 112 Pulse Ox 95 95 Oxygen Delivery Method Room Air Room Air 05/28/22 10:20 05/28/22 10:20 05/28/22 11:12 Temperature Temperature Source Pulse Rate 73 Respiratory Rate 20 H 16 Respiratory Effort Blood Pressure Blood Pressure Mean Pulse Ox 94 94 Oxygen Delivery Method Room Air Room Air 05/28/22 12:03 05/28/22 12:03 Temperature 97.4 F L Temperature Source Temporal Pulse Rate 74 74 Respiratory Rate 17 17 Respiratory Effort Blood Pressure 154/70 H 154/70 H Blood Pressure Mean 98 98 Pulse Ox 96 96 Oxygen Delivery Method Room Air Room Air Positive well nourished and well developed General Appearance ED: well developed HEENT Reports moist mucous membranes atraumatic Eyes General Eye ED: Negative for scleral icterus Neck no JVD Resp Resp Narrative: Respiratory effort is slightly increased. But she carries on and near full conversation. One of her staff members had been in the room when she was up moving around and noted that she seemed extremely dyspneic with that. I did not test that at this time. Her saturations are good currently while sitting still in bed. She has diffuse wheezing throughout. Diminished air motion. Auscultation: wheezes Cardio regular rate and regular rhythm Cardio Narrative: Normal OR interval is seen on the monitor. EKG pending GI non-tender and non-distended Back/Spine no CVA tenderness Extremity normal to inspection General Extremety ED: Negative for edema or tenderness General Extremity: Negative for edema Neuro Sensorium / Orientation: alert Psych mental status grossly normal Skin no wounds MDM MDM MDM Narrative Medical decision making narrative: Blood work showed really relatively normal CBC. Minimal nonspecific anemia. Electrolytes are normal. Lactic acid is normal. Patient was given 2 treatments. She is still wheezing very significantly and quite tight. We have given her another treatment. We walked her and she did not desaturate. She only walked about 15 feet outside of the room. When she came back she was very winded after this. It took her a while to catch up. But she did not desaturate. I talked to her. While talking with her her respiratory rate went from about 22 up to 34. She got very winded and had to stop just talking with me. But again, she did not desaturate. My concern is that this patient has significant asthma. She has not been admitted for asthma in about 10 years. She states she has not had an episode like this in a long time. She has just finished 5 days of 40 mg a day of prednisone along with Tamiflu and despite good outpatient therapy she is not getting better. I think with her significant dyspnea, exertional tachypnea and failure of outpatient therapy, bringing into the hospital for IV steroids and treatments is appropriate. Hospitalist did see the patient talk to her. She actually feels slightly better. She would like to try to go home. Lab Data Attestation: I reviewed the patient's lab results. Labs: Laboratory Results - last 24 hr 05/28/22 05/28/22 05/28/22 10:13 10:13 10:25 WBC 10.8 RBC 3.82 L Hgb 11.6 L Hct 35.6 L MCV 93.2 MCH 30.4 MCHC 32.6 RDW Std Deviation 45.5 H RDW Coeff of Jassi 13.4 Plt Count 331 MPV 9.4 Immature Gran % (Auto) 4.800 H Neut % (Auto) 53.6 Lymph % (Auto) 33.8 [place] % (Auto) 6.2 Eos % (Auto) 0.8 Baso % (Auto) 0.8 Absolute Neuts (auto) 5.8 Absolute Lymphs (auto) 3.64 Nucleated RBC % 0 Sodium 138 Potassium 4.1 Chloride 104 Carbon Dioxide 29.0 Anion Gap 5 BUN 14 Creatinine 0.84 Estim Creat Clear Calc 59.96 Est GFR (MDRD) Af Amer 88 Est GFR (MDRD) Non-Af 73 BUN/Creatinine Ratio 16.6 Glucose 88 Lactic Acid 1.3 Calcium 9.7 Radiography Diagnostic Testing: Clinical Impression(s) from Imaging Studies Chest X-Ray 05/28/22 10:35 IMPRESSION: No acute cardiopulmonary process identified. Electronically Signed: Clary Vargas MD at 11:01 EST , Chest x-ray shows no acute process. EKG Initial EKG: Comments: EKG done for dyspnea read by me shows a sinus rhythm with overall rate of 73. No ventricular ectopy. No acute ST elevation or depression. No indication of WPW, preexcitation, short OR. OR interval, QRS duration, QTc are all normal. The EKG is similar to prior of 16 March of this year. Discharge Plan Triage Chief Complaint: Shortness of Breath ED Provider: Johnson Dubon Dx/Rx/DC Orders Clinical Impression: Asthma exacerbation, Failure of outpatient treatment Prescriptions: New prednisone 20 mg tablet 40 mg PO DAILY Qty: 10 0RF codeine-guaifenesin 10-100 mg/5 mL liquid 5 ml PO Q4H PRN (Reason: coughing fits) Qty: 120 0RF Continued Ultra CoQ10 75 mg capsule 75 mg PO DAILY B-complex with vitamin C Capsule 1 cap PO DAILY cholecalciferol (vitamin D3) 50 mcg (2,000 unit) capsule 50 mcg PO DAILY vitamin E 200 unit capsule 200 unit PO DAILY magnesium 30 mg tablet 30 mg PO DAILY lisinopril-hydrochlorothiazide 20-25 mg tablet 1 tab PO DAILY albuterol sulfate 2.5 mg /3 mL (0.083 %) solution for nebulization 2.5 mg inhalation Q4H PRN Qty: 25 0RF Rx Instructions: Use q4 hours and PRN for wheezing Primary Care Provider: Freeman Zamudio Referrals: Freeman Zamudio MD [Primary Care Provider] - 1-2 Weeks Disposition Disposition: Home, Self Care Discharge Date/Time: 05/28/22 13:07
[2022-05-28] MEDS: MethylPREDNISolone 125 MG/2 ML Vial IV (10:22)
[2022-05-28] MEDS: Albuterol 2.5 MG/3 ML VIAL.NEB. INHALATION ×2 (10:22→11:12)
[2022-05-28] MEDS: Ipratropium/Albuterol Sulfate 3 ML AMPUL.NEB INHALATION (10:22)
[2022-05-28 10:24] LABS: Absolute Lymphocyte Count 3.64 X10^3/uL (0.83-4.51); Absolute Neutrophil Count 5.8 X10^3/uL (2.0-7.7); Basophil# 0.09 X10^3/uL; Basophil% 0.8 % (0-1); Eosinophil# 0.09 X10^3/uL; Eosinophils% 0.8 % (0-5); Hematocrit 35.6 % (37-47); Hemoglobin 11.6 g/dL (12.0-15.0); Lymphocyte # 3.64 X10^3/ul (0.83-4.51); Lymphocyte % 33.8 % (19-41); Mean Corp Hgb Conc 32.6 g/dL (32-36); Mean Corpuscular Hgb 30.4 pg (27.0-32.0); Mean Corpuscular Volume 93.2 fL (81-99); Mean Platelet Vol. 9.4 fl (6.2-12.0); Monocyte# 0.67 X10^3/uL; Monocyte% 6.2 % (0-10); NRBC Flagged by Analyzer 0 % (0-5); Neutrophil # 5.76 X10^3/uL (2.7-7.7); Neutrophil % 53.6 % (47-70); Platelet Count 331 K/mm3 (150-450); RBC Distribution Width CV 13.4 % (11.6-14.6); RBC Distribution Width SD 45.5 fl (35.1-43.9); Red Blood Count 3.82 M/mm3 (4.2-5.4); White Blood Count 10.8 K/mm3 (4.4-11.0)
--- NOTE | 2022-05-28 10:35 | RAD_ITS ---
HISTORY: cough. TECHNIQUE: XR Chest 1 View. COMPARISON: 07/05/2021. FINDINGS: CARDIOMEDIASTINAL BORDERS: Cardiac silhouette within normal limits in size. Mediastinal contour unremarkable. LUNGS: Radiographically clear. PLEURA: No pleural effusion or pneumothorax seen. OSSEOUS STRUCTURES: Bilateral shoulder arthroplasties again noted. RAD/Chest 1 View (Portable) IMPRESSION: No acute cardiopulmonary process identified. Electronically Signed: Clary Vargas MD at 11:01 EST ,
[2022-05-28 10:37] LABS: Anion Gap 5 (5-15); BUN 14 mg/dL (7-18); BUN/Creat Ratio 16.6 RATIO (10-20); Calcium,Total 9.7 mg/dL (8.5-10.1); Chloride 104 mmol/L (98-107); Creatinine, Serum 0.84 mg/dL (0.55-1.02); EST Glomerular Filtration Rate 73 mL/min (>60); Est Glom Filt Rate - Afr Amer 88 mL/min (>60); Estimated Creatinine Clearance 59.96 ml/min; Glucose 88 mg/dL (74-106); Potassium 4.1 mmol/L (3.5-5.1); Sodium Level 138 mmol/L (136-145)
[2022-05-28] MEDS: Acetaminophen 500 MG Tablet 1000 MG PO (10:54)
[2022-05-28 10:55] LABS: Lactic Acid 1.3 mmol/L (0.4-1.9)
--- NOTE | 2022-05-28 12:49 | DCINST_ITS ---
Discharge Instructions Diet Discharge Diet: No restrictions Activity Discharge Activity: Return to Normal Activity (ease back into normal routine. ) Dressing / Incision Call your doctor if you observe: Fever of 101 or Higher and Shortness of breath Follow Up Care Test Results: Test results from this visit will be discussed in further detail at your follow- up appointment, if applicable. Discharge Plan Triage Chief Complaint: Shortness of Breath ED Provider: Johnson Dubon Dx/Rx/DC Orders Clinical Impression: Asthma exacerbation, Failure of outpatient treatment Prescriptions: New prednisone 20 mg tablet 40 mg PO DAILY Qty: 10 0RF codeine-guaifenesin 10-100 mg/5 mL liquid 5 ml PO Q4H PRN (Reason: coughing fits) Qty: 120 0RF Continued Ultra CoQ10 75 mg capsule 75 mg PO DAILY B-complex with vitamin C Capsule 1 cap PO DAILY cholecalciferol (vitamin D3) 50 mcg (2,000 unit) capsule 50 mcg PO DAILY vitamin E 200 unit capsule 200 unit PO DAILY magnesium 30 mg tablet 30 mg PO DAILY lisinopril-hydrochlorothiazide 20-25 mg tablet 1 tab PO DAILY albuterol sulfate 2.5 mg /3 mL (0.083 %) solution for nebulization 2.5 mg inhalation Q4H PRN Qty: 25 0RF Rx Instructions: Use q4 hours and PRN for wheezing Primary Care Provider: Freeman Zamudio Referrals: Freeman Zamudio MD [Primary Care Provider] - 1-2 Weeks Disposition Disposition: Home, Self Care
--- NOTE | 2022-05-28 12:55 | CON.PCM.HO_ITS ---
Assessment & Plan Assessment/Plan (1) Asthma exacerbation: PLAN: Secondary to influenza. Patient is already completed Tamiflu. Likely has a protracted case of asthma exacerbation. However, the patient is a stable on room air. She does have dyspnea on exertion but has remained stable. I refer the patient to be brought into the hospital under observation status and continue with prednisone bronchodilators but also stated that she could also do that at home. Patient said that she would prefer to go home. Did discuss with the patient about the risks of development of bacterial pneumonia secondary to a viral infection if she does develop worsening respiratory failure, increased fever or productive sputum that could be a sign of a bacterial secondary pneumonia and that she should come back in the hospital to be reevaluated. Patient expressed understanding and will be discharged home. I did will give the patient prescription for prednisone, she is also requesting a new prescription for albuterol which is almost out and we will also give her a prescription for guaifenesin with codeine cough syrup to help with her parox ysmal cough. PLAN: Plan Discharge home. HPI Consult Data Date of Consult: 05/28/22 HPI Narrative Reason for Consultation: Shortness of breath HPI Narrative: AURORA SAWYER, is a 62 F who presents with shortness of breath. Patient was recent diagnosed with influenza A and took 5-day course of prednisone and Tamiflu. She has completed both those but she is just not gotten any better. Patient is having dyspnea on exertion. She presents to the emergency room where she has audible wheezing but is not requiring oxygen and her oxygenation has remained into the 90s. Patient received bronchodilators as well as methylprednisolone. The hospital service was contacted for evaluation for admission as the patient had completed treatment for influenza and bronchitis but was not any better. [facility] Medical History Asthma COVID-19 vaccine series completed History of COVID-19 HTN (hypertension) Home Medications B-complex with vitamin C 1 cap PO DAILY 12/31/20 [History Last Taken Unknown] cholecalciferol (vitamin D3) 50 mcg (2,000 unit) capsule 50 mcg PO DAILY 12/31/20 [History Last Taken Unknown] coenzyme Q10 75 mg capsule (Ultra CoQ10) 75 mg PO DAILY 12/31/20 [History Last Taken Unknown] lisinopril 20 mg-hydrochlorothiazide 25 mg tablet 1 tab PO DAILY 12/31/20 [History Last Taken Unknown] magnesium 30 mg tablet 30 mg PO DAILY 12/31/20 [History Last Taken Unknown] vitamin E 200 unit capsule 200 unit PO DAILY 12/31/20 [History Last Taken Unknown] albuterol sulfate 2.5 mg/3 mL (0.083 %) solution for nebulization 2.5 mg (3 mL) inhalation Q4H PRN #25 vials 05/28/22 [Rx Last Taken Unknown] codeine 10 mg-guaifenesin 100 mg/5 mL oral liquid 5 ml PO Q4H PRN coughing fits #120 mL 05/28/22 [Rx Last Taken Unknown] prednisone 20 mg tablet 40 mg PO DAILY #10 tabs 05/28/22 [Rx Last Taken Unknown] Allergy/AdvReac Type Severity Reaction Status Date / Time aspirin Allergy Intermediate Rash, Verified 05/28/22 09:50 rhinitis, trouble breathing cat dander Allergy Intermediate Rash, Verified 05/28/22 09:50 rhinitis, trouble breathing horse dander Allergy Intermediate Rash, Verified 05/28/22 09:50 rhinitis, trouble breathing ragweed pollen Allergy Intermediate Rash, Verified 05/28/22 09:50 rhinitis, trouble breathing Penicillins Allergy Rash Verified 05/28/22 09:50 vaccine adjuvant system, Allergy Anaphylaxis Verified 05/28/22 09:50 AS01B liposomal [From Shingrix (PF)] varicella-zoster virus Allergy Anaphylaxis Verified 05/28/22 09:50 glycoprotein E, recombinant [From Shingrix (PF)] celecoxib [From Celebrex] AdvReac Vomiting Verified 05/28/22 09:50 no significant family history Surgical History H/O knee surgery H/O shoulder surgery Social History household members: none housing: house pets and animals: No Smoking Status: Former smoker pack-years: 15 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 Patient is coughing but rarely productive. Physical Exam Const alert and no apparent distress Resp normal respiratory effort and no retractions Auscultation: wheezes expiratory wheezes and throughout Cardio regular rate and regular rhythm GI normal to inspection, nondistended, normoactive bowel sounds Neuro Sensorium / Orientation: awake and alert Lab / Micro Data Result Diagrams: 05/28/22 10:13 05/28/22 10:13 Labs: Laboratory Results - last 24 hr 05/28/22 10:13: WBC 10.8, RBC 3.82 L, Hgb 11.6 L, Hct 35.6 L, MCV 93.2, MCH 30.4, MCHC 32.6, RDW Std Deviation 45.5 H, RDW Coeff of Jassi 13.4, Plt Count 331, MPV 9.4, Immature Gran % (Auto) 4.800 H, Neut % (Auto) 53.6, Lymph % (Auto) 33.8, [place] % (Auto) 6.2, Eos % (Auto) 0.8, Baso % (Auto) 0.8, Absolute Neuts (auto) 5.8, Absolute Lymphs (auto) 3.64, Nucleated RBC % 0 05/28/22 10:13: Sodium 138, Potassium 4.1, Chloride 104, Carbon Dioxide 29.0, Anion Gap 5, BUN 14, Creatinine 0.84, Estim Creat Clear Calc 59.96, Est GFR (MDRD) Af Amer 88, Est GFR (MDRD) Non-Af 73, BUN/Creatinine Ratio 16.6, Glucose 88, Calcium 9.7 05/28/22 10:25: Lactic Acid 1.3 Radiology Impression Chest X-Ray 05/28/22 10:35 IMPRESSION: No acute cardiopulmonary process identified. Electronically Signed: Clary Vargas MD at 11:01 EST , Charges/Coding Visit Charges Office Visits / Consults: [id number] OP Consult L3
== END 2022-05-28 13:07 | disposition home or self-care (01) ==
PROVIDERS: Emergency Provider Emergency Medicine; PCP Family Medicine; Visit Provider Emergency Medicine
DX: J45.901 Unspecified asthma with (acute) exacerbation (principal); J44.9 Chronic obstructive pulmonary disease, unspecified; Z79.82 Long term (current) use of aspirin; Z87.891 Personal history of nicotine dependence; J10.1 Influenza due to other identified influenza virus with other respiratory manifestations; D64.9 Anemia, unspecified; I10 Essential (primary) hypertension; Z86.16 Personal history of COVID-19
CPT/HCPCS: 71045; 80048; 83605; 85025; 87040; 93005; 94640; 96374; 99251; 99284; A4216; G0463

== ENCOUNTER → 2022-09-19 | Outpatient (CLI) | payer MEDICARE, SELFPAY ==
--- NOTE | 2022-09-19 12:14 | RAD_ITS ---
INDICATION: PAIN EXAMINATION/TECHNIQUE: X-RAY - RIGHT XR Hip Unilateral with Pelvis when performed; 2-3 Views COMPARISON: None. FINDINGS: Single frontal view of the pelvis. 2 views of the right hip. BONES: Normal anatomic alignment without evidence of fracture or subluxation. No concerning bony lesion or abnormal sclerosis to suggest lesion. JOINTS: Mild bilateral femoral acetabular joint degenerative change. SOFT TISSUES: Unremarkable. RAD/HIP, UNI W/ Pelvis 2-3 Views IMPRESSION: Stable degenerative change without acute osseous abnormality of the pelvis and right hip. Electronically Signed: Ramo Acosta MD at 6:10 EDT ,
== END | disposition home or self-care (01) ==
LOC: RAD 12:00
PROVIDERS: PCP Family Medicine; Referring Provider Anesthesiology Pain Medicine; Visit Provider Anesthesiology Pain Medicine
DX: M25.551 Pain in right hip (principal)
CPT/HCPCS: 73502

== ENCOUNTER → 2023-01-11 | Outpatient (CLI) | payer MEDICARE, SELFPAY ==
--- NOTE | 2023-01-11 13:24 | RAD_ITS ---
EXAM: XR LEFT KNEE, 1 OR 2 VIEWS CLINICAL INDICATION: KNEE PAIN TECHNIQUE: Frontal and/or lateral views of the left knee. COMPARISON: No relevant prior studies available. FINDINGS: BONES/JOINTS: Unremarkable. No acute fracture. No subluxation. Normal alignment. Preservation of the medial and lateral joint spaces. No sclerotic or destructive changes observed. SOFT TISSUES: Degenerative spurring about the patellofemoral compartment which shows degenerative narrowing. Ossified enthesophyte project from the superior pole of the patella at the quadriceps tendon insertion. Suprapatellar knee effusion. Posterior to the knee are 2 lobulated calcifications each measuring 19 mm in maximal diameter, suspicious for calcified intra-articular loose bodies within a popliteal cyst. RAD/Knee 1 or 2 Views IMPRESSION: 2 lobulated calcifications projected posterior to the medial aspect of the knee, suspicious for intra-articular loose bodies within a popliteal cyst. Patellar degenerative change. Suprapatellar knee effusion. No acute fracture. Electronically Signed: Beltran Harkins MD at 1:24 EDT ,
== END | disposition home or self-care (01) ==
LOC: RAD 13:21
PROVIDERS: PCP Family Medicine; Referring Provider Anesthesiology Pain Medicine; Visit Provider Anesthesiology Pain Medicine
DX: M25.562 Pain in left knee (principal)
CPT/HCPCS: 73560

== ENCOUNTER 2023-02-08 12:00 | Emergency (ER) | payer MEDICARE, SELFPAY ==
[2023-02-08 12:01] VITALS: BP 198/86; PULSE 69; RESP 16; TEMP 36.6; O2SAT 98; BMI 46.4
--- NOTE | 2023-02-08 12:06 | ED.RN ---
NO STROKE ALERT PER DR ROWLEY
--- NOTE | 2023-02-08 12:52 | EDS_ITS ---
HPI History of Present Illness Chief Complaint: Numb/Ting Informant: patient Onset/Context/Timing Onset: Yesterday Context: Gradual Onset Timing: Continuous Quality: Weakness and numbness Location: Left face Worsened by: Nothing Relieved by: Nothing Narrative Narrative: Patient presents with left facial numbness and weakness. Patient states she had some numbness to the left side of her tongue last night. Patient states she also had some increased watering from her left eye last night. Patient states this resolved. Patient states she woke up today with left facial weakness and numbness. Patient states she was unable to hold any water in her mouth this morning. Patient states she does sleep between 2 fans. Patient admits to some pain in her left ear. Patient denies any fevers or chills. [facility] Medical History Asthma COVID-19 vaccine series completed History of COVID-19 HTN (hypertension) Home Medications B-complex with vitamin C 1 cap PO DAILY 12/31/20 [History Last Taken Unknown] cholecalciferol (vitamin D3) 50 mcg (2,000 unit) capsule 50 mcg PO DAILY 12/31/20 [History Last Taken Unknown] coenzyme Q10 75 mg capsule (Ultra CoQ10) 75 mg PO DAILY 12/31/20 [History Last Taken Unknown] lisinopril 20 mg-hydrochlorothiazide 25 mg tablet 1 tab PO DAILY 12/31/20 [Hi story Last Taken Unknown] magnesium 30 mg tablet 30 mg PO DAILY 12/31/20 [History Last Taken Unknown] vitamin E 200 unit capsule 200 unit PO DAILY 12/31/20 [History Last Taken Unknown] albuterol sulfate 2.5 mg/3 mL (0.083 %) solution for nebulization 2.5 mg (3 mL) inhalation Q4H PRN #25 vials 05/28/22 [Rx Last Taken Unknown] codeine 10 mg-guaifenesin 100 mg/5 mL oral liquid 5 ml PO Q4H PRN coughing fits #120 mL 05/28/22 [Rx Last Taken Unknown] prednisone 20 mg tablet 40 mg (2 x 20 mg) PO DAILY #10 tabs 05/28/22 [Rx Last Taken Unknown] prednisone 20 mg tablet 60 mg (3 x 20 mg) PO DAILY #15 TABLETS 02/08/23 [Rx Last Taken Unknown] Allergy/AdvReac Type Severity Reaction Status Date / Time aspirin Allergy Intermediate Rash, Verified 02/08/23 12:03 rhinitis, trouble breathing cat dander Allergy Intermediate Rash, Verified 02/08/23 12:03 rhinitis, trouble breathing horse dander Allergy Intermediate Rash, Verified 02/08/23 12:03 rhinitis, trouble breathing ragweed pollen Allergy Intermediate Rash, Verified 02/08/23 12:03 rhinitis, trouble breathing Penicillins Allergy Rash Verified 02/08/23 12:03 vaccine adjuvant system, Allergy Anaphylaxis Verified 02/08/23 12:03 AS01B liposomal [From Shingrix (PF)] varicella-zoster virus Allergy Anaphylaxis Verified 02/08/23 12:03 glycoprotein E, recombinant [From Shingrix (PF)] celecoxib [From Celebrex] AdvReac Vomiting Verified 02/08/23 12:03 Surgical History (Updated 02/08/23 @ 12:[address] 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 caffeine: Yes what type of physical activity do you participate in: none sandy/islam: Voodoo seatbelt use: always do you feel safe at home: Yes ROS ROS ED Constitutional Constitutional ED: Denies chills or fever(s) Eyes Eyes: Reports blurry vision left; Denies diplopia ENT ENT ED: Reports ear pain left; Denies rhinorrhea or sore throat Cardiovascular Cardiovascular: Denies chest pain or palpitations Respiratory/Chest Respiratory/Chest: Denies cough or dyspnea Gastrointestinal Gastrointestinal: Denies nausea or vomiting Genitourinary Genitourinary ED: Reports urinary frequency; Denies dysuria or hematuria Musculoskeletal Musculoskeletal: Reports back pain and neck pain Integumentary Denies abscess or rash Neurologic Neurologic: Reports headache(s) Allergic/Immunologic Allergic/Immunologic ED: Denies mouth swelling or urticaria EXAM Physical Exam Const Vital Signs: 02/08/23 12:01 Temperature 97.8 F Temperature Source Temporal Pulse Rate 69 Respiratory Rate 16 Blood Pressure 198/86 H Blood Pressure Mean 123 Pulse Ox 98 Oxygen Delivery Method Room Air Positive well nourished and well developed General Appearance ED: well developed HEENT Reports moist mucous membranes Eyes PERRL and EOMs intact bilaterally Neck supple and no JVD Resp normal respiratory effort and clear to auscultation bilaterally Cardio regular rate and regular rhythm GI normal to inspection, nondistended, normoactive bowel sounds and non-tender Palpation: soft Extremity normal to inspection General Extremety ED: Negative for edema or tenderness General Extremity: Negative for edema Neuro oriented x3 and no sensory deficits noted Neuro Narrative: There is weakness of the left facial muscles. Patient is unable to elevate her left eyebrow. There is decrease in the nasolabial fold on the left. There is weakness in closing her left eye and with smiling on the left. Strength is 5/5 bilaterally in the upper and lower extremities. There is mild decrease sensation to light touch in the left side of the face. There are no other sensory deficits noted. Sensorium / Orientation: alert Motor Exam: strength 5/5 throughout Psych mental status grossly normal Skin no rashes or lesions noted MDM MDM MDM Narrative Medical decision making narrative: Differential diagnosis includes Smith's palsy, stroke, electrolyte abnormality, and anemia. CT scan of the brain will be obtained to assess for stroke and intracranial bleeding. CBC will be obtained to assess for leukocytosis and anemia. Basic metabolic profile will be obtained to assess for electrolyte abnormality and renal function. Lab Data Attestation: I reviewed the patient's lab results. Lab results narrative: CBC was reviewed and was within normal limits. Basic metabolic profile was reviewed and was essentially within normal limits. Labs: Laboratory Results - last 24 hr 02/08/23 13:11 WBC 8.5 RBC 4.19 L Hgb 13.1 Hct 39.1 MCV 93.3 MCH 31.3 MCHC 33.5 RDW Std Deviation 42.9 RDW Coeff of Jassi 12.5 Plt Count 335 MPV 9.3 Immature Gran % (Auto) 0.600 Neut % (Auto) 66.2 Lymph % (Auto) 24.5 Pitt % (Auto) 6.5 Eos % (Auto) 1.8 Baso % (Auto) 0.4 Absolute Neuts (auto) 5.6 Absolute Lymphs (auto) 2.07 Nucleated RBC % 0 Sodium 135 L Potassium 4.2 Chloride 101 Carbon Dioxide 26.0 Anion Gap 8 BUN 10 Creatinine 0.81 Estim Creat Clear Calc 62.18 Est GFR (MDRD) Af Amer 92 Est GFR (MDRD) Non-Af 76 BUN/Creatinine Ratio 12.4 Glucose 108 H Calcium 10.2 H Radiography Diagnostic Testing: Clinical Impression(s) from Imaging Studies Brain CT 02/08/23 13:30 IMPRESSION: Small vessel ischemia. Electronically Signed: Jackie Ortega MD at 13:57 EDT , CT scan of the brain was obtained. There is no acute intracranial abnormality. This was interpreted by the radiologist and was also independently reviewed by myself. Treatment and Re-Evaluation :: Patient was started on prednisone. Patient is feeling better on reevaluation. Patient was given a prescription for prednisone. Patient was instructed to tape her left eyelid closed at nighttime. Patient was instructed to use artificial teardrops in her left eye as needed. Patient was instructed to follow-up with her primary care physician in 5 to 7 days. Patient understood and was agreeable with the plan. All questions were answered. Discharge Plan Triage Chief Complaint: Numb/Ting ED Provider: Lenin Mccloud Dx/Rx/DC Orders Prescriptions: New prednisone 20 mg tablet 60 mg PO DAILY Qty: 15 0RF No Action Ultra CoQ10 75 mg capsule 75 mg PO DAILY B-complex with vitamin C Capsule 1 cap PO DAILY cholecalciferol (vitamin D3) 50 mcg (2,000 unit) capsule 50 mcg PO DAILY vitamin E 200 unit capsule 200 unit PO DAILY magnesium 30 mg tablet 30 mg PO DAILY lisinopril-hydrochlorothiazide 20-25 mg tablet 1 tab PO DAILY prednisone 20 mg tablet 40 mg PO DAILY Qty: 10 0RF codeine-guaifenesin 10-100 mg/5 mL liquid 5 ml PO Q4H PRN (Reason: coughing fits) Qty: 120 0RF albuterol sulfate 2.5 mg /3 mL (0.083 %) solution for nebulization 2.5 mg inhalation Q4H PRN Qty: 25 0RF Rx Instructions: Use q4 hours and PRN for wheezing Primary Care Provider: Freeman Zamudio Referrals: Freeman Zamudio MD [Primary Care Provider] - 5-7 Days Disposition Disposition: Home, Self Care
[2023-02-08 13:24] LABS: Absolute Lymphocyte Count 2.07 X10^3/uL (0.83-4.51); Absolute Neutrophil Count 5.6 X10^3/uL (2.0-7.7); Basophil# 0.03 X10^3/uL; Basophil% 0.4 % (0-1); Eosinophil# 0.15 X10^3/uL; Eosinophils% 1.8 % (0-5); Hematocrit 39.1 % (37-47); Hemoglobin 13.1 g/dL (12.0-15.0); Lymphocyte # 2.07 X10^3/ul (0.83-4.51); Lymphocyte % 24.5 % (19-41); Mean Corp Hgb Conc 33.5 g/dL (32-36); Mean Corpuscular Hgb 31.3 pg (27.0-32.0); Mean Corpuscular Volume 93.3 fL (81-99); Mean Platelet Vol. 9.3 fl (6.2-12.0); Monocyte# 0.55 X10^3/uL; Monocyte% 6.5 % (0-10); NRBC Flagged by Analyzer 0 % (0-5); Neutrophil % 66.2 % (47-70); Platelet Count 335 K/mm3 (150-450); RBC Distribution Width CV 12.5 % (11.6-14.6); RBC Distribution Width SD 42.9 fl (35.1-43.9); Red Blood Count 4.19 M/mm3 (4.2-5.4); White Blood Count 8.5 K/mm3 (4.4-11.0)
--- NOTE | 2023-02-08 13:30 | CT_ITS ---
INDICATION: Headache EXAMINATION: CT BRAIN - CT Head or Brain W/O Contrast Injection TECHNIQUE: Multiple axial images were obtained of the head without intravenous contrast. A radiation dose optimization technique was used for this scan. IV Contrast dosage and agent: None. RADIATION DOSAGE (If Supplied By Facility): CTDIvol = ( 44.99 ) mGy, DLP = ( 863.60 ) mGycm COMPARISON: No relevant prior comparison study available FINDINGS: BRAIN PARENCHYMA: No intra- or extra-axial hemorrhage. There are a few scattered low-attenuation foci throughout the white matter of the cerebral hemispheres, a nonspecific finding most commonly reflecting small vessel ischemia. No evidence of acute infarct. No intracranial mass or mass effect. There is preservation of the bonilla/white matter interface. Posterior fossa structures are unremarkable. CSF SPACES: Appropriate for age. No hydrocephalus. Basal cisterns are patent. CALVARIUM, SKULL BASE, PARANASAL SINUSES AND MASTOID AIR CELLS: Clear. No discrete lytic or blastic abnormalities. ORBITS: Both globes, extraocular muscles, optic nerves and retrobulbar fat appear unremarkable. ASPECTS Score for Acute Strokes: 10 CT/Brain/Head without Contrast IMPRESSION: Small vessel ischemia. Electronically Signed: Jackie Ortega MD at 13:57 EDT ,
[2023-02-08 13:43] LABS: Anion Gap 8 (5-15); BUN 10 mg/dL (7-18); BUN/Creat Ratio 12.4 RATIO (10-20); Calcium,Total 10.2 mg/dL (8.5-10.1); Chloride 101 mmol/L (98-107); Creatinine, Serum 0.81 mg/dL (0.55-1.02); EST Glomerular Filtration Rate 76 mL/min (>60); Est Glom Filt Rate - Afr Amer 92 mL/min (>60); Estimated Creatinine Clearance 62.18 ml/min; Glucose 108 mg/dL (74-106); Potassium 4.2 mmol/L (3.5-5.1); Sodium Level 135 mmol/L (136-145)
[2023-02-08 15:29] VITALS: BP 152/83; PULSE 89; RESP 16; O2SAT 96
== END 2023-02-08 15:31 | disposition home or self-care (01) ==
PROVIDERS: Emergency Provider Emergency Medicine; PCP Family Medicine; Visit Provider Emergency Medicine
DX: R20.2 Paresthesia of skin (principal); H92.02 Otalgia, left ear; Z87.891 Personal history of nicotine dependence; I10 Essential (primary) hypertension; J45.909 Unspecified asthma, uncomplicated; Z79.52 Long term (current) use of systemic steroids; R35.0 Frequency of micturition; R20.0 Anesthesia of skin
CPT/HCPCS: 70450; 80048; 85025; 99285

== ENCOUNTER → 2023-04-13 | Outpatient (CLI) | payer MEDICARE, SELFPAY ==
--- NOTE | 2023-04-13 10:22 | MRI_ITS ---
STUDY: MRI LEFT KNEE REASON FOR EXAM: Female, 63 years old. Left knee pain for 4 months. TECHNIQUE: Standardized fat and water weighted pulse sequences were obtained in all 3 orthogonal planes. COMPARISON: Left knee radiographs dated 03/19/2023. FINDINGS: There is a complex tear of the posterior horn of the medial meniscus with horizontal and partial radial tear components (sagittal PD series 6 images 12-18). There is degenerative arthrosis of the medial femorotibial compartment with joint space narrowing, marginal osteophyte formation, moderate to high-grade chondromalacia, subchondral marrow edema in the medial tibial plateau, and subchondral cyst formation along the posterior nonweightbearing surface of the medial femoral condyle. Normal medial collateral ligamentous complex (MCL). Normal distal semimembranosus, gracilis and semitendinosus tendons. Normal lateral meniscus. There is mild degenerative arthrosis of the lateral femorotibial compartment with small marginal osteophyte formation and low to moderate grade chondromalacia, and subchondral marrow edema along the posterior nonweightbearing surface of the lateral femoral condyle Normal proximal tibiofibular articulation. Normal lateral collateral (fibular) ligament. Normal popliteus tendon. Normal biceps femoris tendon. Normal anterior cruciate ligament (ACL). Normal posterior cruciate ligament (PCL). There is degenerative arthrosis of the patellofemoral compartment with marginal osteophyte formation, high-grade chondromalacia along the patella, and moderate grade chondromalacia along the medial femoral trochlea There is slight lateral patellar subluxation. Normal medial and lateral patellar retinaculum. Normal quadriceps tendon. Normal patellar tendon. Normal Hoffa''s fat pad. There is a small joint effusion. There is a multiseptated popliteal cyst, spanning a craniocaudal distance of approximately 8 cm, containing multiple calcified loose bodies measuring up to 2.0 cm in diameter (sagittal T2 series 7 images 9-12). The soft tissues are unremarkable. There is no acute fracture. MRI/Lower Ext Joint Only (Routine) IMPRESSION: Complex tear of the posterior horn of the medial meniscus with horizontal and partial radial tear components. Tricompartment degenerative arthrosis, with slight lateral patellar subluxation. Small joint effusion. 8 cm multiseptated popliteal cyst, containing multiple calcified loose bodies measuring up to 2.0 cm in diameter. Electronically Signed: Julius Mckeon MD at 11:38 EDT ,
== END | disposition home or self-care (01) ==
LOC: MRI 10:00
PROVIDERS: PCP Family Medicine; Referring Provider Orthopaedic Surgery; Visit Provider Orthopaedic Surgery
DX: M25.562 Pain in left knee (principal)
CPT/HCPCS: 73721

== ENCOUNTER 2023-05-08 10:02 | Day surgery (SDC) | payer MEDICARE, SELFPAY ==
[2023-05-08] VITALS (7 sets, daily range): BP systolic 139–172; BP diastolic 67–89; PULSE 71–96; RESP 16–18; TEMP 36.3–37.4; O2SAT 96–98; BMI 49.9
[2023-05-08] MEDS: Lactated Ringers 1,000 ML 15 ML IV (10:24)
[2023-05-08] MEDS: Cefazolin 3 GM in 0.9% Normal Saline (100mL Bag) 100 ML IV (11:40)
--- NOTE | 2023-05-08 11:59 | HP.PCM_ITS ---
History and Physical Date of Admission: 05/08/23 [facility] [address] [place] [address] OFFICE VISIT Date of Service: 04/16/23 MR#: [id number] Acct: [id number] Name: AURORA SAWYER Rep #: [id number] : 1960 Provider: Dr. Domenic Samuel, Age/Sex: 63/F Location: [facility] Status: Signed Intake Vital Signs 03/19/2313:07 Height 5 ft 4 in Weight: 277 lb BMI 47.5 Intake Visit Reasons: LEFT KNEE Chief Complaint: left knee Is patient in pain?: Yes (left knee) Pain scale (1-10): 9 Allergies aspirin Allergy (Intermediate, Verified 04/16/23 11:20) Rash, rhinitis, trouble breathingcat dander Allergy (Intermediate, Verified 04/16/23 11:20) Rash, rhinitis, trouble breathinghorse dander Allergy (Intermediate, Verified 04/16/23 11:20) Rash, rhinitis, trouble breathingragweed pollen Allergy (Intermediate, Verified 04/16/23 11:20) Rash, rhinitis, trouble breathingPenicillins Allergy (Verified 04/16/23 11:20) Rashvaccine adjuvant system, AS01B liposomal [From Shingrix (PF)] Allergy (Verified 04/16/23 11:20) Anaphylaxisvaricella-zoster virus glycoprotein E, recombinant [From Shingrix (PF)] Allergy (Verified 04/16/23 11:20) Anaphylaxiscelecoxib [From Celebrex] Adverse Reaction (Verified 04/16/23 11:20) Vomiting Medications B-complex with vitamin C 1 cap PO DAILY 12/31/20 [History Confirmed 04/16/23] cholecalciferol (vitamin D3) 50 mcg (2,000 unit) capsule 50 mcg PO DAILY 12/31/20 [History Confirmed 04/16/23] coenzyme Q10 75 mg capsule (Ultra CoQ10) 75 mg PO DAILY 12/31/20 [History Confirmed 04/16/23] lisinopril 20 mg-hydrochlorothiazide 25 mg tablet 1 tab PO DAILY 12/31/20 [History Confirmed 04/16/23] magnesium 30 mg tablet 30 mg PO DAILY 12/31/20 [History Confirmed 04/16/23] vitamin E 200 unit capsule 200 unit PO DAILY 12/31/20 [History Confirmed 04/16/23] albuterol sulfate 2.5 mg/3 mL (0.083 %) solution for nebulization 2.5 mg (3 mL) inhalation Q4H PRN #25 vials 05/28/22 [Rx Confirmed 04/16/23] amlodipine 5 mg tablet mg PO 03/19/23 [History Confirmed 04/16/23] cyclobenzaprine 10 mg tablet mg PO 03/19/23 [History Confirmed 04/16/23] famotidine 40 mg tablet mg PO 03/19/23 [History Confirmed 04/16/23] PFSH Medical History Asthma COVID-19 vaccine series completed Degenerative spondylolisthesis Facet arthritis of lumbar region History of COVID-19 HTN (hypertension) Surgical History (Updated 03/19/23 @ 13:15 by Melanie Vinson) H/O knee surgery H/O shoulder surgery Hx of hysterectomy Hx of kidney removal Social History household members: none housing: house pets and animals: No Smoking Status: Former smoker pack-years: 15 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 Domenic Samuel, DO 04/16/23 0825. Part of today?s visit was documented by [ ], acting as scribe. AURORA SAWYER is a 63 year old F here today for left knee MRI review. She states her pain seems to be increasing. She rates her pain 9/10 today and describes it as a stinging sensation on the lateral side of her left knee. She has been wearing her left knee brace which helps some when her knee feels like giving out. Head: Normocephalic Atraumatic Chest: symmetrical rise, non-labored breathing, no audible wheeze Abdomen: no guarding, non-rigid Supplemental Info 04/13/2023 MRI left knee:Complex tear of the posterior horn of the medial meniscus with horizontal and partial radial tear components. Tricompartment degenerative arthrosis, with slight lateral patellar subluxation. Small joint effusion. 8 cm multiseptated popliteal cyst, containing multiple calcified loose bodies measuring up to 2.0 cm in diameter. 03/19/2023 x-ray left knee notch view and sunrise view: There is mild degenerative spurring on the medial compartment and moderate narrowing of the medial patellar facet 02/08/2023 x-ray left knee: AP lateral view only, moderate patellar arthrosis, Posterior to the knee are 2 lobulated calcifications each measuring 19 mm in maximal diameter, suspicious for calcified intra-articular loose bodies within a popliteal cyst. Coding Level of Care Code Off vis,est,level 3 Diagnoses Complex tear of medial meniscus of left knee as current injury, subsequent encounter S83.232D Encounter type: subsequent encounter Meniscus of knee: medial Meniscus tear of knee type: complex Tear current or old: current Assessment and Plan Assessment and Plan (1) Tear of meniscus of left knee: Qualifiers: Encounter type: subsequent encounter Meniscus of knee: medial Meniscus tear of knee type: complex Tear current or old: current Qualified Code(s): S83.232D - Complex tear of medial meniscus, current injury, left knee, subsequent encounter Plan Spoke with the patient about the anatomy of the knee and etiology of her pain. Recommended the patient have a knee arthroscopy to help clean out the meniscus. She has a risk of continued pain due to her osteoarthritis. If her pain progresses, she would need a total knee arthroplasty but she would need to lower her BMI first. She has 1 kidney and isnt able to take NSAIDs. She may take up to 1000mg of tylenol four times a day. Follow up for 2 week post op or sooner if pain, swelling, numbness or associated symptoms, or concerns develop. All questions answered. Patient in agreement of plan. 04/16/23 1226 <Electronically signed by Domenic Samuel DO> Date Domenic Samuel DO Cosigner Signature: Date (if applicable) CC: ~ I have examined the patient and the H&P has been reviewed. There are no clinical changes since date of exam.
[2023-05-08] MEDS: Lidocaine 1% /Epi 1:100 (20ml) 20 ML Vial (13:00)
[2023-05-08] MEDS: Epinephrine (1 mg/ml) 1 MG/ML VIAL (13:00)
[2023-05-08] MEDS: MethylPREDNISolone Acetate 40 MG/ML Vial (13:25)
[2023-05-08] MEDS: Bupivacaine 0.5% PF 10 ML VIAL (13:25)
--- NOTE | 2023-05-08 13:34 | OP.PCM_ITS ---
Operative Report Date of Procedure: 05/08/23 Preop diagnosis: Left knee complex medial meniscus tear DJD Postoperative diagnosis: Left knee complex posterior horn, body and root medial meniscus tear, radial tear body lateral meniscus rated 4 chondromalacia diffuse of trochlea grade 3 diffuse medial femoral condyle with areas of grade 4, grade 3 areas of lateral compartment Procedure: Left knee arthroscopic partial medial partial lateral meniscectomy partial synovectomy Anesthesia: General Estimated blood loss: 5 mL Tourniquet time: 36 minutes 300 mmHg Complications: none Indication for procedure: 63-year-old female patient has had ongoing mechanical knee pain MRI evidence of medial meniscus tear and DJD the patient did wish to proceed with an elective arthroscopic surgery to attempt to alleviate the symptoms. Risk benefits and alternatives of the procedure were reviewed including risk of bleeding infection nerve artery tissue damage need for further surgery continued pain and expected postoperative course. Procedure: The patient was met in the preoperative holding area. The operative extremity was identified by both patient and physician and family and marked. Patient was brought back to the operating room on a wheeled cart and transferred to the operating table in the supine position. Anesthesia was started. A well- padded tourniquet was placed on the operative extremity. A lower extremity leg perez was secured to the operative extremity. The contralateral extremity was well-padded and the end of the bed was flexed to 90 degrees. The patient was prepped and draped in the usual sterile fashion. A timeout was called to ensure the proper patient, procedure, and extremity were being contemplated. 0.5% Marcaine with epinephrine was injected into the planned incisional areas under the skin only. An Esmarch was used to exsanguinate the extremity and the tourniquet was inflated. An 11 blade scalpel was used to make a stab incision in the anterior lateral portal. The arthroscope was inserted into the intercondylar notch and inflow and outflow tubes were attached. Arthroscopic visualization began. The medial compartment was entered. An 18-gauge spinal needle was used to establish the placement for anterior medial portal. An 11 blade scalpel was used to make a stab incision. Blunt probe was inserted followed by a meniscal probe. There was significant thickened tissue in the intercondylar notch that required debridement, there was diffuse grade III chondromalacia of the medial femoral condyle with areas of grade 4 was complex tearing of the posterior horn the medial meniscus the ACL was found to be intact. The lateral compartment was entered there is noted to be radial tear of the body of the lateral meniscus as well as areas of grade III chondromalacia partial medial and partial lateral meniscectomy were performed using anh and ArthroCare wand the arthroscope was switched to the medial portal to complete the procedure. The medial and lateral gutters were inspected and were free of loose bodies. The patellofemoral joint was inspected and had significant grade 4 diffuse cartilage wear. There was good patellar tracking. The knee was thoroughly irrigated and drained. An intra-articular injection with 5 cc 0.5% Marcaine plain and 40 mg of Depo-Medrol was injected intra-articularly. The arthroscope was removed the portals were closed with 3-0 nylon arthroscopic stitches. Followed by Xeroform 4 x 4's ABDs web roll and an Jozef wrap. The tourniquet was let down and the drapes were removed. All counts were correct. The patient was brought back to the PACU in stable condition.
--- NOTE | 2023-05-08 13:38 | DCINST_ITS ---
Discharge Instructions Dressing / Incision Call your doctor if you observe: Shortness of breath and Chest pain Additional Dressing/Incision Instructions:: Ice and elevate next 72 hours .keep dressing on clean and dry for 48 hours then may remove begin showering daily but do not submerge in tub or pool. After shower may apply Band-Aids . Encourage knee range of motion weightbearing as tolerated, use crutches until confident in knee then may discontinue. No strenuous activity. When not ambulating keep iced and elevated next 72 hours. Do not mix pain medication with recreational drugs or alcohol only take as prescribed can be addictive and abusive, call with any questions or concerns. Follow Up Care Please Follow Up With: Domenic Samuel DO When: 2 weeks Test Results: Test results from this visit will be discussed in further detail at your follow- up appointment, if applicable. Discharge Plan Admission Primary Reason for Your Visit: DJD medial meniscus tear left knee Attending Provider: Domenic Samuel Primary Care Provider: Freeman Zamudio Discharge Orders/Prescriptions Prescriptions: New oxycodone 5 mg tablet 5 - 10 mg PO Q4H PRN (Reason: pain) 5 Days Qty: 30 0RF Continued Ultra CoQ10 75 mg capsule 75 mg PO DAILY B-complex with vitamin C Capsule 1 cap PO DAILY cholecalciferol (vitamin D3) 50 mcg (2,000 unit) capsule 50 mcg PO DAILY vitamin E 200 unit capsule 200 unit PO DAILY magnesium 30 mg tablet 30 mg PO DAILY lisinopril-hydrochlorothiazide 20-25 mg tablet 1 tab PO DAILY amlodipine 5 mg tablet 5 mg PO DAILY Patient Comments: take 1 tablet by mouth once daily cyclobenzaprine 10 mg tablet 10 mg PO BID PRN (Reason: muscle spasm) Patient Comments: take 1 tablet by mouth twice a day if needed for muscle spasm or pain albuterol sulfate 2.5 mg /3 mL (0.083 %) solution for nebulization 2.5 mg inhalation Q4H PRN Qty: 25 0RF Rx Instructions: Use q4 hours and PRN for wheezing multivitamin [Daily Multi-Vitamin] Tablet 1 tab PO DAILY Referrals / Follow Up: Freeman Zamudio MD [Primary Care Provider] - Disposition Disposition (needs filled in before D/C Order can be placed): Home, Self Care
[2023-05-08] MEDS: 0.9% Normal Saline (1000mL) 1,000 ML 125 ML IV (13:54)
== END 2023-05-08 16:58 | disposition home or self-care (01) ==
LOC: SDC 10:04 → AC 10:04
PROVIDERS: PCP Family Medicine; Referring Provider Orthopaedic Surgery; Visit Provider Orthopaedic Surgery
PROC: (CPT 29870; principal; 2023-05-08 11:20)
DX: S83.232A Complex tear of medial meniscus, current injury, left knee, initial encounter (principal); S83.282A Other tear of lateral meniscus, current injury, left knee, initial encounter; X58.XXXA Exposure to other specified factors, initial encounter; M17.12 Unilateral primary osteoarthritis, left knee; I10 Essential (primary) hypertension; Z87.891 Personal history of nicotine dependence
CPT/HCPCS: 29880; 01400; J7030; J7120; J2405

== ENCOUNTER 2023-08-13 13:30 | Outpatient (RCR) | payer SELFPAY | END 2023-08-16 23:59 | LOC: NS 13:30 | PROVIDERS: PCP Family Medicine; Referring Provider Orthopaedic Surgery; Visit Provider Orthopaedic Surgery | DX: Z71.3 Dietary counseling and surveillance (principal); E66.9 Obesity, unspecified; Z68.42 Body mass index [BMI] 45.0-49.9, adult | CPT/HCPCS: 97802; 97803 ==

== ENCOUNTER 2023-08-27 11:11 | Outpatient (RCR) | payer SELFPAY | END 2023-09-16 23:59 | LOC: NS 11:11 | PROVIDERS: PCP Family Medicine; Referring Provider Orthopaedic Surgery; Visit Provider Orthopaedic Surgery | DX: Z71.3 Dietary counseling and surveillance (principal); E66.9 Obesity, unspecified; Z68.42 Body mass index [BMI] 45.0-49.9, adult | CPT/HCPCS: 97803 ==

== ENCOUNTER 2023-10-23 10:18 | Outpatient (RCR) | payer SELFPAY | END 2023-11-16 23:59 | LOC: NS 10:18 | PROVIDERS: PCP Family Medicine; Referring Provider Orthopaedic Surgery; Visit Provider Orthopaedic Surgery | DX: Z71.3 Dietary counseling and surveillance (principal); E66.9 Obesity, unspecified; Z68.42 Body mass index [BMI] 45.0-49.9, adult | CPT/HCPCS: 97803 ==

== ENCOUNTER 2023-11-20 10:15 | Outpatient (RCR) | payer SELFPAY | END 2023-12-16 23:59 | LOC: NS 10:15 | PROVIDERS: PCP Family Medicine; Referring Provider Orthopaedic Surgery; Visit Provider Orthopaedic Surgery | DX: Z71.3 Dietary counseling and surveillance (principal); E66.9 Obesity, unspecified; Z68.42 Body mass index [BMI] 45.0-49.9, adult | CPT/HCPCS: 97803 ==

== ENCOUNTER 2023-12-18 09:51 | Outpatient (RCR) | payer SELFPAY | END 2024-01-16 23:59 | LOC: NS 09:51 | PROVIDERS: PCP Family Medicine; Referring Provider Orthopaedic Surgery; Visit Provider Orthopaedic Surgery | DX: Z71.3 Dietary counseling and surveillance (principal); E66.9 Obesity, unspecified; Z68.42 Body mass index [BMI] 45.0-49.9, adult | CPT/HCPCS: 97803 ==

== ENCOUNTER 2024-01-22 09:50 | Outpatient (RCR) | payer SELFPAY | END 2024-02-16 23:59 | LOC: NS 09:50 | PROVIDERS: PCP Family Medicine; Referring Provider Orthopaedic Surgery; Visit Provider Orthopaedic Surgery | DX: Z71.3 Dietary counseling and surveillance (principal); E66.9 Obesity, unspecified; Z68.42 Body mass index [BMI] 45.0-49.9, adult | CPT/HCPCS: 97803 ==

== ENCOUNTER → 2024-02-04 | Outpatient (CLI) | payer MEDICARE, SELFPAY ==
--- NOTE | 2024-02-04 12:15 | RAD_ITS ---
STUDY: X-RAY - CERVICAL SPINE REASON FOR EXAM: Female, 63 years old. Neck pain. TECHNIQUE: 3 view(s) of the cervical spine were obtained on 4 images. COMPARISON: None FINDINGS: Osteopenia. Normal anterior atlantoaxial articulation. Normal odontoid process. Reversal of the normal lordosis. 2 mm of anterolisthesis of C3 on C4 and of C5 on C4. Diffuse moderate uncovertebral and facet sclerosis. Intervertebral disc space narrowing at C2-3, C4-5, C5-6 and C6-7 with small osteophytes at C4-5, C5-6 and C6-7. Normal soft tissues. RAD/Cerv Spine 2 or 3 Views IMPRESSION: Osteopenia with mild cervical spondylosis as described. Electronically Signed: Drew Payan MD at 13:33 EDT ,
== END | disposition home or self-care (01) ==
PROVIDERS: PCP Family Medicine; Referring Provider Anesthesiology Pain Medicine; Visit Provider Anesthesiology Pain Medicine
DX: M47.812 Spondylosis without myelopathy or radiculopathy, cervical region (principal)
CPT/HCPCS: 72040

== ENCOUNTER 2024-02-20 09:44 | Outpatient (RCR) | payer SELFPAY | END 2024-03-17 23:59 | LOC: NS 09:44 | PROVIDERS: PCP Family Medicine; Referring Provider Orthopaedic Surgery; Visit Provider Orthopaedic Surgery | DX: Z71.3 Dietary counseling and surveillance (principal); E66.9 Obesity, unspecified; Z68.42 Body mass index [BMI] 45.0-49.9, adult | CPT/HCPCS: 97803 ==

== ENCOUNTER → 2024-03-11 | Outpatient (CLI) | payer MEDICARE, SELFPAY ==
[2024-03-11 16:50] LABS: Amphetamine Urine VISTA NEGATIVE (<1000 ng/mL); Barbiturate Urine VISTA NEGATIVE (< 200 ng/mL); Benzodiazepine Urine VISTA NEGATIVE (< 200 ng/mL); Cocaine Urine VISTA NEGATIVE (< 300 ng/mL); Ecstacy Urine VISTA NEGATIVE (< 500 ng/mL); Methadone Urine VISTA NEGATIVE (< 300 ng/mL); PCP Urine VISTA NEGATIVE (< 25 ng/mL); THC Urine VISTA NEGATIVE (< 50 ng/mL); Vista UDS pH Range 6
== END | disposition home or self-care (01) ==
PROVIDERS: PCP Family Medicine; Referring Provider Anesthesiology Pain Medicine; Visit Provider Anesthesiology Pain Medicine
DX: F11.20 Opioid dependence, uncomplicated (principal)
CPT/HCPCS: 80307

== ENCOUNTER 2024-03-26 09:23 | Outpatient (RCR) | payer SELFPAY | END 2024-04-17 23:59 | LOC: NS 09:23 | PROVIDERS: PCP Family Medicine; Referring Provider Orthopaedic Surgery; Visit Provider Orthopaedic Surgery | DX: Z71.3 Dietary counseling and surveillance (principal); E66.9 Obesity, unspecified; Z68.42 Body mass index [BMI] 45.0-49.9, adult | CPT/HCPCS: 97803 ==

== ENCOUNTER 2024-05-29 08:37 | Outpatient (RCR) | payer SELFPAY | END 2024-06-17 23:59 | LOC: NS 08:37 | PROVIDERS: PCP Family Medicine; Referring Provider Orthopaedic Surgery; Visit Provider Orthopaedic Surgery | DX: Z71.3 Dietary counseling and surveillance (principal); E66.9 Obesity, unspecified; Z68.42 Body mass index [BMI] 45.0-49.9, adult | CPT/HCPCS: 97803 ==

== ENCOUNTER 2024-07-23 09:42 | Outpatient (RCR) | payer SELFPAY | END 2024-08-15 23:59 | LOC: NS 09:42 | PROVIDERS: PCP Family Medicine; Referring Provider Orthopaedic Surgery; Visit Provider Orthopaedic Surgery | DX: Z71.3 Dietary counseling and surveillance (principal); E66.9 Obesity, unspecified; Z68.42 Body mass index [BMI] 45.0-49.9, adult | CPT/HCPCS: 97803 ==

== ENCOUNTER → 2024-08-16 | Outpatient (CLI) | payer MEDICARE, SELFPAY ==
--- NOTE | 2024-08-16 07:57 | MRI_ITS ---
PROCEDURE: SPINE LUMBAR (ROUTINE) REASON FOR EXAM: RADICULOPATHY TECHNIQUE: Multiplanar multisequence lumbar spine MRI was performed without IV contrast. COMPARISON: Radiographs 09/27/2020. FINDINGS: Note that the L1 vertebral body is incompletely imaged on axial sequences. Vertebrae: Lumbar vertebral body heights are preserved. Bone marrow signal is unremarkable. Alignment: Similar grade 1 anterolisthesis at L4-L5. Trace to mild lumbar levoscoliosis. Conus Medullaris: Unremarkable. L1-2: Unremarkable L2-3: Disc height is preserved. Trace disc protrusion in the foraminal/lateral regions bilaterally. No significant foraminal or spinal canal stenosis. Mild facet arthropathy. L3-4: Mild loss of disc height. Mild diffuse disc bulging favoring the lateral regions. No significant spinal canal or foraminal stenosis. Facet arthropathy. L4-5: Anterolisthesis as above. Mild loss of disc height with disc desiccation. Diffuse disc bulging with disc uncovering and ligamentum flavum hypertrophy, collectively resulting in [id number] spinal canal stenosis with effacement of CSF surrounding the nerve roots at this level, spinal canal dimensions 1.2 x 1.0 cm AP by transverse. Effacement of bilateral lateral recesses. Facet arthropathy including [id number]-[id number]-[id number]-right facet joint effusions. These contribute to moderate to severe right and moderate left foraminal stenosis. L5-S1: Disc desiccation with mild loss of disc height and diffuse disc bulging. Facet arthropathy. Mild ligamentum flavum hypertrophy. No significant spinal canal stenosis. Mild bilateral foraminal stenosis. Small likely synovial cyst measuring 3 x 5 x 8 mm along the left lateral recess at the level of L5, contributing to effacement of the left lateral recess near the descending/exiting left L5 nerve root. Other: Presumed left renal cyst, not well evaluated. Right nephrectomy. Diverticulosis. MRI/Spine Lumbar (Routine) IMPRESSION: 1. Multilevel spondylosis as above, greatest at L4-L5 where there is moderate/s evere spinal canal stenosis as well as moderate to severe right and moderate left foraminal stenosis. Note also a small likely sy novial cyst a along the left lateral recess at the level of L5 near the descending/exiting left L5 nerve root. 2. Additional description as above. Reading Location: [id number]
== END | disposition home or self-care (01) ==
LOC: MRI 07:50
PROVIDERS: PCP Family Medicine; Referring Provider Anesthesiology Pain Medicine; Visit Provider Anesthesiology Pain Medicine
DX: M54.16 Radiculopathy, lumbar region (principal)
CPT/HCPCS: 72148

== ENCOUNTER 2024-08-20 16:02 | Emergency (ER) | payer MEDICARE, SELFPAY ==
[2024-08-20 16:02] VITALS: BP 123/82; PULSE 101; RESP 16; TEMP 36.7; O2SAT 97; BMI 38.7
[2024-08-20 18:54] VITALS: BP 128/76; PULSE 84; RESP 16; O2SAT 97
[2024-08-20 19:02] LABS: Absolute Neutrophil Count 10.2 X10^3/uL (2.0-7.7); Basophil# 0.07 X10^3/uL; Basophil% 0.5 % (0-1); Eosinophil# 0.12 X10^3/uL; Eosinophils% 0.9 % (0-5); Hematocrit 39.3 % (37-47); Hemoglobin 12.9 g/dL (12.0-15.0); Lymphocyte % 18.1 % (19-41); Mean Corp Hgb Conc 32.8 g/dL (32-36); Mean Corpuscular Hgb 30.6 pg (27.0-32.0); Mean Corpuscular Volume 93.1 fL (81-99); Mean Platelet Vol. 9.8 fl (6.2-12.0); Monocyte# 0.78 X10^3/uL; Monocyte% 5.6 % (0-10); NRBC Flagged by Analyzer 0 % (0-5); Neutrophil # 10.23 X10^3/uL (2.7-7.7); Neutrophil % 73.9 % (47-70); Platelet Count 359 K/mm3 (150-450); RBC Distribution Width CV 13.5 % (11.6-14.6); Red Blood Count 4.22 M/mm3 (4.2-5.4); White Blood Count 13.8 K/mm3 (4.4-11.0)
--- NOTE | 2024-08-20 19:11 | EX.ED.DYSGE1 ---
HPI History of Present Illness Chief Complaint: Syncope [facility] Medical History Wears dentures Wears glasses Walker as ambulation aid Arthritis Injury of head and neck GERD (gastroesophageal reflux disease) Former smoker Facet arthritis of lumbar region Degenerative spondylolisthesis COVID-19 vaccine series completed History of COVID-19 Asthma HTN (hypertension) Home Medications ?Medication ?Instructions ?Recorded ?Last Taken ?Type B-complex with vitamin C 1 cap PO DAILY 12/31/20 Unknown History cholecalciferol (vitamin D3) 50 50 mcg PO DAILY 12/31/20 Unknown History mcg (2,000 unit) capsule coenzyme Q10 75 mg capsule (Ultra 75 mg PO DAILY 12/31/20 Unknown History CoQ10) magnesium 30 mg tablet 30 mg PO DAILY 12/31/20 Unknown History vitamin E 200 unit capsule 200 unit PO DAILY 12/31/20 Unknown History albuterol sulfate 2.5 mg/3 mL 2.5 mg (3 mL) inhalation Q4H PRN 05/28/22 Unknown Rx (0.083 %) solution for nebulization #25 vials cyclobenzaprine 10 mg tablet 10 mg PO BID PRN muscle spasm 03/19/23 Unknown History multivitamin (Daily Multi-Vitamin 1 tab PO DAILY 04/26/23 Unknown History tablet) lisinopril 40 mg tablet 40 mg PO 01/21/24 Unknown History tramadol 50 mg tablet 50 - 100 mg (1 - 2 x 50 mg) PO Q8H 01/21/24 Unknown Rx PRN pain #30 tabs Allergy/AdvReac Type Severity Reaction Status Date / Time aspirin Allergy Intermediate Rash, Verified 08/20/24 20:07 rhinitis, trouble breathing cat dander Allergy Intermediate Rash, Verified 08/20/24 20:07 rhinitis, trouble breathing horse dander Allergy Intermediate Rash, Verified 08/20/24 20:07 rhinitis, trouble breathing ragweed pollen Allergy Intermediate Rash, Verified 08/20/24 20:07 rhinitis, trouble breathing Penicillins Allergy Rash Verified 08/20/24 20:07 vaccine adjuvant system, Allergy Anaphylaxis Verified 08/20/24 20:07 [id number] liposomal (From Shingrix (PF)) varicella-zoster virus Allergy Anaphylaxis Verified 08/20/24 20:07 glycoprotein E, recombinant (From Shingrix (PF)) celecoxib (From Celebrex) AdvReac Vomiting Verified 08/20/24 20:07 Surgical History History of cardiac radiofrequency ablation Hx of kidney removal Hx of hysterectomy H/O shoulder surgery H/O knee surgery Social History household members: none housing: house pets and animals: No Smoking Status: Former smoker pack-years: 15 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 caffeine: Yes what type of physical activity do you participate in: none sandy/sabianism: Shinto seatbelt use: always do you feel safe at home: Yes EXAM Physical Exam Const Vital Signs: 08/20/24 16:02 08/20/24 18:54 08/20/24 20:00 Temperature 98.1 F Temperature Source Temporal Pulse Rate 101 H 84 91 Respiratory Rate 16 16 16 Respiratory Effort Respiratory Pattern Blood Pressure 123/82 H 128/76 H 157/90 H Blood Pressure Mean 95 93 112 Pulse Ox 97 97 97 Oxygen Delivery Method Room Air Room Air Room Air 08/20/24 20:05 08/20/24 20:39 Temperature Temperature Source Pulse Rate 90 Respiratory Rate 18 Respiratory Effort Normal Respiratory Pattern Normal Blood Pressure 142/74 H Blood Pressure Mean 96 Pulse Ox 97 Oxygen Delivery Method Room Air MDM MDM MDM Narrative Medical decision making narrative: HISTORY OF PRESENT ILLNESS: 64-year-old female who presents after having a syncopal episode at [facility]. She notes her back hurts and right wrist hurts. She states she was seated when she felt hot, warm, dizzy and sweaty and lost consciousness. There is no fall or trauma reported. She notes chronic back and wrist pain. She denies significant pain before she passed out. Denies any convulsions, tongue biting or bowel or bladder incontinence. No history of seizures. She notes 1 episode of passing out in the past. Denies headache prior to passing out. Denies chest pain, palpitations, abdominal pain, vomiting or diarrhea. No she is eating and drinking normally. Does not think she is dehydrated. Denies urinary complaints. REVIEW OF SYSTEMS: Pertinent positives: Syncope, back pain, wrist pain Pertinent negatives: As per HPI PHYSICAL EXAM: Nursing triage notes reviewed, Vital signs reviewed Primary Survey Airway: Intact Breathing: Bilateral breath sounds Circulation: Palpable bilateral femorals, Palpable bilateral radial, Palpable bilateral DP and Palpable bilateral PT Disability / Spine precautions GCS Score: Eye Openin Verbal Response: 5 Motor Response: 6 Secondary Survey Constitutional: Please see [facility] Head: Atraumatic, Midface stable, NO jaw malocclusion, No Cephalohematoma, and No Lacerations noted Eye: Pupils equal round and reactive to light, Extraocular muscles intact and No periorbital ecchymosis or stepoff, no evidence of entrapment ENT: Oropharynx clear, no lacerations, no hemotympanum, no raccoon eyes or garner sign Cervical spine / Neck: No cervical spine bony tenderness, crepitance, or stepoff deformity Trachea midline Lungs: Clear to auscultation, No asymmetric rise and No crepitus, no flail chest Cardiac: Regular rate and rhythm and No murmurs, no focal cardiopulmonary abnormalities Abdomen: Soft, Nontender and No rebound Pelvis: Pelvis stable to compression : No evidence of genital injury Back: No midline bony tenderness to thoracic/lumbar/sacral spines Neuro: Alert and oriented x3, neuro exam at baseline, cranial nerves II through XII are intact. There is negative test of skew. 5 of 5 strength in upper and lower extremities in flexion extension. Intact sensation to light touch in upper and lower extremity dermatomes. No truncal or extremity ataxia. No dysdiadochokinesia. Normal gait. 2+ reflexes in upper and lower extremities. No meningeal signs. Negative Babinski. NIH of 0. Extremities: NO gross Deformities Psych: Normal affect Nursing triage notes reviewed, Vital signs reviewed MEDICAL DECISION MAKING: Chief Complaint: As per [facility] External records reviewed: Reviewed prior imaging studies: Reviewed MRI from August 16, 2024 which showed multilevel spondylosis at L4-5, moderate/severe spinal canal stenosis, right and left foraminal stenosis Factors affecting care: Asthma, hypertension Social determinants of health: none History obtained from others: none Consults: none [facility] Narrative: The patient was initially hemodynamically stable, afebrile and nontoxic-appearing. Exam without focal cardiopulmonary normalities. No focal neurologic deficits. I considered the following differential diagnosis: Arrhythmia, anemia, electro disturbance, ACS, CHF, dehydration, vasovagal syncope, PE, aortic dissection, subarachnoid hemorrhage The patient's history and physical exam were not consistent with PE, aortic dissection or subarachnoid hemorrhage. ALL IMAGES (IF OBTAINED) HAVE BEEN PERSONALLY REVIEWED AND INTERPRETED BY MYSELF. EKG with normal sinus rhythm rate of 88, normal axis, prolonged MT interval (202) first-degree AV block, no STEMI, no high degree block CBC with leukocytosis suggestive of systemic inflammation, no anemia or thrombocytopenia BMP without evidence of significant electrolyte abnormalities, no anion gap, no acute kidney injury. High-sensitivity troponin is negative, no evidence of myocardial ischemia awaiting delta I have personally reviewed the patient's chest x-ray. Chest x-ray is unremarkable for pulmonary edema, pneumothorax, pneumonia or focal cardiopulmonary abnormality. Awaiting delta troponin. if sec troponin is negative patient likely suffering from a vasovagal event given prodrome of dizziness warmth and sweating. Will sign out to overnight physician pending delta troponin and final disposition. The patient and/or family, caregivers express understanding. The patient and/or family, caregivers agrees with the plan. Shared decision making: I will have a discussion with the patient and or visitors regarding risk/benefits of further testing or admission. They will be made aware of of the risk/benefits inherent in this decision they will be given the opportunity to voice understanding. Total critical care time today provided was at least 0 minutes. This excludes separately billable procedures. Critical care time (if documented) is secondary to the patient having high probability of clinically significant/life threatening deterioration in the patient's condition which required my urgent intervention. Impression: 1. Vasovagal syncope Dispo: Pending delta troponin and overnight physician disposition This note was generated with Newsy dictation software. It may contain incorrect words, spelling, and punctuation that were not noted in review of the chart prior to signing. Lab Data Labs: Laboratory Results - last 24 hr 08/20/24 18:43 WBC 13.8 H RBC 4.22 Hgb 12.9 Hct 39.3 MCV 93.1 MCH 30.6 MCHC 32.8 RDW Std Deviation 46.0 H RDW Coeff of Jassi 13.5 Plt Count 359 MPV 9.8 Immature Gran % (Auto) 1.000 H Neut % (Auto) 73.9 H Lymph % (Auto) 18.1 L [place] % (Auto) 5.6 Eos % (Auto) 0.9 Baso % (Auto) 0.5 Absolute Neuts (auto) 10.2 H Absolute Lymphs (auto) 2.50 Nucleated RBC % 0 Sodium 135 Potassium 4.2 Chloride 98 Carbon Dioxide 23.5 Anion Gap 13 BUN 20 H Creatinine 0.91 Estim Creat Clear Calc 72.79 Est GFR (MDRD) Non-Af 71 BUN/Creatinine Ratio 22.5 H Glucose 104 H Calcium 10.1 Troponin T High Sens 8 Radiography Diagnostic Testing: Clinical Impression(s) from Imaging Studies Chest X-Ray 08/20/24 19:51 IMPRESSION: NEGATIVE CHEST. Reading Location: [facility] Discharge Plan Triage Chief Complaint: Syncope ED Provider: Nicholas Wilde Dx/Rx/DC Orders Clinical Impression: Syncope, vasovagal Instructions: ED Fainting, Uncertain Cause Prescriptions: No Action Ultra CoQ10 75 mg capsule 75 mg PO DAILY B-complex with vitamin C Capsule 1 cap PO DAILY cholecalciferol (vitamin D3) 50 mcg (2,000 unit) capsule 50 mcg PO DAILY vitamin E 200 unit capsule 200 unit PO DAILY magnesium 30 mg tablet 30 mg PO DAILY cyclobenzaprine 10 mg tablet 10 mg PO BID PRN (Reason: muscle spasm) Patient Comments: take 1 tablet by mouth twice a day if needed for muscle spasm or pain lisinopril 40 mg tablet 40 mg PO Patient Comments: [NO ORIGINAL SIG] tramadol 50 mg tablet 50 - 100 mg PO Q8H PRN (Reason: pain) Qty: 30 0RF albuterol sulfate 2.5 mg /3 mL (0.083 %) solution for nebulization 2.5 mg inhalation Q4H PRN Qty: 25 0RF Rx Instructions: Use q4 hours and PRN for wheezing multivitamin [Daily Multi-Vitamin] Tablet 1 tab PO DAILY Primary Care Provider: Freeman Zamudio Referrals: Freeman Zamudio MD [Primary Care Provider] - Activity Restrictions/Additional Instructions: Thank you for trusting us with your care today! Please take Tylenol (2 pills, 650 mg), ibuprofen (2 pills, 400 mg) every 6 hours as needed for pain and fever control. Please return to the emergency department if your symptoms change or worsen. Please follow with your primary care physician for further outpatient evaluation and management. Specifically to inquire about a Holter monitor and echocardiogram. Print Language: Congolese Disposition Disposition: Home, Self Care
[2024-08-20 19:40] LABS: Anion Gap 13 (5-15); BUN 20 mg/dL (4-19); BUN/Creat Ratio 22.5 RATIO (10-20); Calcium,Total 10.1 mg/dL (7.6-11.0); Carbon Dioxide 23.5 mmol/L (21.0-32.0); Chloride 98 mmol/L (98-108); Creatinine, Serum 0.91 mg/dL (0.70-1.20); EST Glomerular Filtration Rate 71 (>60); Estimated Creatinine Clearance 72.79 ml/min (50-250); Glucose 104 mg/dL (70-99); Potassium 4.2 mmol/L (3.3-5.1); Sodium Level 135 mmol/L (133-145)
--- NOTE | 2024-08-20 19:51 | RAD_ITS ---
PROCEDURE: CHEST 1 VIEW (PORTABLE) REASON FOR EXAM: 64-year-old female, syncope and back pain. TECHNIQUE: Frontal view of the chest. COMPARISON: Chest radiograph 05/28/2022. FINDINGS: Bilateral reverse shoulder arthroplasties. The heart size is normal. No focal consolidation, pleural effusion or pneumothorax. Degenerative changes are identified within the thoracic spine. RAD/Chest 1 View (Portable) IMPRESSION: NEGATIVE CHEST. Reading Location: [id number]
[2024-08-20 20:00] VITALS: BP 157/90; PULSE 91; RESP 16; O2SAT 97
[2024-08-20 20:39] VITALS: BP 142/74; PULSE 90; RESP 18; O2SAT 97
--- NOTE | 2024-08-20 20:42 | ED.RN ---
called lab to inquire about troponin not pending off BMP
[2024-08-20 20:59] LABS: Troponin T High Sensitivity 8 ng/L (<=14)
[2024-08-20] MEDS: Acetaminophen 325 MG Tablet 650 MG PO (21:37)
[2024-08-20 22:00] VITALS: BP 151/83; PULSE 78; RESP 20; O2SAT 98
[2024-08-20 23:36] LABS: Troponin T High Sens 2 HR 8 ng/L (<=14)
[2024-08-20] MEDS: Morphine 4 MG/ML Syringe IV (23:48)
[2024-08-21] VITALS: BP 136/60; PULSE 82; O2SAT 96
== END 2024-08-21 00:25 | disposition home or self-care (01) ==
PROVIDERS: Emergency Provider Emergency Medicine; PCP Family Medicine; Visit Provider Emergency Medicine
DX: R55 Syncope and collapse (principal); M54.9 Dorsalgia, unspecified; M25.531 Pain in right wrist; G89.29 Other chronic pain; I44.0 Atrioventricular block, first degree; I10 Essential (primary) hypertension; K21.9 Gastro-esophageal reflux disease without esophagitis; J45.909 Unspecified asthma, uncomplicated; M48.061 Spinal stenosis, lumbar region without neurogenic claudication; M47.816 Spondylosis without myelopathy or radiculopathy, lumbar region; Z88.0 Allergy status to penicillin; Z79.899 Other long term (current) drug therapy; Z87.891 Personal history of nicotine dependence
CPT/HCPCS: 71045; 80048; 84484; 85025; 93005; 96374; 99283; A4216

== ENCOUNTER 2024-10-07 11:05 | Inpatient (IN) | payer MEDICARE, SELFPAY ==
[2024-10-03 13:29] LABS: Magnesium 1.9 mg/dL (1.5-2.2)
[2024-10-03 15:09] LABS: HIV Nonreactive (Nonreactive); Hepatitis B Surface Antibody Nonreactive; Hepatitis C Antibody Nonreactive (Nonreactive)
[2024-10-04 05:07] LABS: Hepatitis A AB, Total Negative (Negative)
[2024-10-06 06:14] VITALS: BP 145/86; PULSE 75; RESP 16; TEMP 36.9; O2SAT 100; BMI 41.6
[2024-10-06] MEDS: Magnesium 2 GM for ERAS IV (06:36)
[2024-10-06] MEDS: Acetaminophen 500 MG Tablet 1000 MG PO (06:36)
[2024-10-06] MEDS: 0.9% Normal Saline (1000mL) 1,000 ML 15 ML IV (06:39)
[2024-10-06 06:43] LABS: Bedside Glucose 91 mg/dL (74-106)
--- NOTE | 2024-10-06 06:51 | PCM.PRE.AN2 ---
ASA Classification* ASA Classification ASA Classification: 3 Assessment & Plan Anesthesia* Anesthesia Assessment Anesthesia Assessment: Discussed sedation and/or anesthesia options, risks, benefits, and alternatives with patient/parents/legal guardian/POA. Questions invited. The patient/parents/legal guardian/POA seems to understand and agrees to proceed with anesthesia plan. Reviewed the physical assessment, medical history, allergy history and patient home medications list prior to surgery/procedure/anesthetic and documented any changes. Performed airway and anesthesia risk assessments. Anesthesia Type Anesthesia Type: General Anesthesia Focused Assessment* Temperature: 98.4 F Pulse Rate: 75 Blood Pressure: 145/86 Respiratory Rate: 16 Pulse Ox: 100 Airway Assessment Mouth opens: >3 cm Mallampati Score: II Focused Labs Anesthesia Preop lab: CBC WBC 13.8 K/mm3 (4.4-11.0) H 08/20/24 18:08/20/24 RBC 4.22 M/mm3 (4.2-5.4) 08/20/24 18:43 08/20/24 Hgb 12.9 g/dL (12.0-15.0) 08/20/24 18:43 08/20/24 Hct 39.3 % (37-47) 08/20/24 18:43 08/20/24 Plt Count 359 K/mm3 (150-450) 08/20/24 18:43 08/20/24 CHEMISTRY Potassium 4.2 mmol/L (3.3-5.1) 08/20/24 18:43 08/20/24 Sodium 135 mmol/L (133-145) 08/20/24 18:43 08/20/24 Magnesium 1.9 mg/dL (1.5-2.2) 10/03/24 11:16 10/03/24 BUN 20 mg/dL (4-19) H 08/20/24 18:08/20/24 Creatinine 0.91 mg/dL (0.70-1.20) 08/20/24 18:08/20/24 Glucose 104 mg/dL (70-99) H 08/20/24 18:43 08/20/24 POC Glucose 91 mg/dL (74-106) 10/06/24 06:23 10/06/24 COAG Pre-Assessment Diagnosis/Proposed Procedure Planned Operative Procedure(s): 360 Lumbar Fusion L4-5, ERAS Anesthesia History 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 When Was Last Pacemaker Check QUESTION #4 FULL TEXT: You/Your Family Experience fever (hyperthermia) with Anesthesia Last Oral Intake Last Oral intake: Last Oral Intake NPO since 04:45 10/06/24 06:14 Meds taken in AM with sips of Yes 10/06/24 06:14 water? Meds patient instructed to take am of surgery PONV PONV - bleaching machine operator: PONV - bleaching machine operator Female Yes 09/22/24 15:21 HX of Motion Sickness No 09/22/24 15:21 HX of N/V After Surgery No 09/22/24 15:21 Non-Smoker Yes 09/22/24 15:21 Duration of Surgery greater Yes 09/22/24 15:21 than 60 minutes Number of Risk Factors 3 09/22/24 15:21 PONV Score Moderate Risk 09/22/24 15:21 Height & Weight Height & Weight: Anesthesia: Height & Weight Height 5 ft 4 in 10/06/24 06:14 Weight: 110 kg 10/06/24 06:14 Body Mass Index (BMI) 41.6 10/06/24 06:14 Respiratory Assessment Respiratory Assessment - bleaching machine operator: Respiratory Tract Infection Hx - bleaching machine operator Hx Respiratory Tract Infection No 09/22/24 15:21 STOP Sleep Apnea STOP Sleep Apnea - bleaching machine operator: STOP Sleep Apnea - bleaching machine operator Hx Hypertension Yes 09/22/24 15:21 Hx Sleep Apnea No 09/22/24 15:21 CPAP BIPAP Do you snore loudly (louder No 09/22/24 15:21 than talking or can be heard Do you often feel tired/ No 09/22/24 15:21 fatigued/ sleepy during daytime? Has anyone observed you stop No 09/22/24 15:21 breathing during sleep? STOP Results Negative 09/22/24 15:21 QUESTION #5 FULL TEXT : Do you snore loudly (louder than talking or can be heard through closed doors)? 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 machine operator: Tobacco Use History - bleaching machine operator Tobacco Use Smoking Status Former smoker 09/22/24 15:21 Hx Tobacco Use Yes 09/22/24 15:21 Years Smoking Packs Smoked per Day Smoking Cessation Date was Yes - quit smoking within 15 09/22/24 15:21 within the last 15 years years Hx Smoking Cessation Date 05/05/18 09/22/24 15:21 Hx Smoking Cessation Counseling Hematologic Medial History Hematologic Hx - bleaching machine operator: Hematologic Medical Hx - documentation engineer Hx of Blood Transfusion No 09/22/24 15:21 Hx of Transfusion in last 3 No 09/22/24 15:21 Months Date of Last Transfusion (if within last 3 months) Ever experience any problems No 09/22/24 15:21 with transfusion(s)? Specify any problems Hx of Preganancy in last 3 No 09/22/24 15:21 Months Nurse Filling Out Transfusion JZOLLINGE 09/22/24 15:21 & Questions: Date: 09/22/24 09/22/24 15:21 Time: 15:24 09/22/24 15:21 Patient unable to answer at this time (ie. confused, unrespo /Reproduction History /Reproductive History - bleaching machine operator: /Reproductive Hx- bleaching machine operator Hx Now No 09/22/24 15:21 Gestational Age (in weeks): EDC: Hx Hx Para Hx Section SAB No 09/22/24 15:21 Active Medications Active Medications: Current Medications Generic Name Dose Route Start Last Admin Trade Name Freq PRN Reason Stop Dose Admin Acetaminophen 1,000 mg 10/06/24 07:30 10/06/24 06:36 Acetaminophen 500 Mg Tablet PO 10/06/24 07:31 1,000 mg X1 ONE Administration Clindamycin Phosphate 900 mg in 50 mls @ 75 mls/hr 10/06/24 07:30 Cleocin IV 10/06/24 08:09 PREOP ONE Tranexamic Acid 1,000 mg/ 110 mls @ 440 mls/hr 10/06/24 07:30 Sodium Chloride IV 10/06/24 07:44 X1 ONE Tranexamic Acid 1,000 mg/ 110 mls @ 440 mls/hr 10/06/24 08:30 Sodium Chloride IV 10/06/24 08:44 X1 ONE Magnesium Sulfate 2 gm/ 104 mls @ 208 mls/hr 10/06/24 07:30 10/06/24 06:36 Dextrose IV 10/06/24 07:59 208 mls/hr X1 ONE Administration Sodium Chloride 1,000 mls @ 15 mls/hr 10/06/24 06:40 10/06/24 06:39 IV 15 mls/hr .Q48H GIOVANNA Administration Insulin Human Lispro 1 - 6 unit 10/06/24 07:30 Insulin Lispro 100 Unit/Ml Insuln.Pen SC 10/06/24 13:30 Q4H PRN PRN BG>/= 180, SEE PROTOCOL Protocol PFSH Medical History Alcohol use Substance abuse Loss of consciousness Wears dentures Wears glasses Walker as ambulation aid Arthritis Injury of head and neck GERD (gastroesophageal reflux disease) Former smoker Facet arthritis of lumbar region Degenerative spondylolisthesis COVID-19 vaccine series completed History of COVID-19 Asthma HTN (hypertension) Home Medications ?Medication ?Instructions ?Recorded ?Last Taken ?Type B-complex with vitamin C 1 cap PO DAILY SUPPLEMENT 12/31/20 10/06/24 04:30 History cholecalciferol (vitamin D3) 50 50 mcg PO DAILY SUPPLEMENT 12/31/20 10/06/24 04:30 History mcg (2,000 unit) capsule coenzyme Q10 75 mg capsule (Ultra 75 mg PO DAILY SUPPLEMENT 12/31/20 10/06/24 04:30 History CoQ10) albuterol sulfate 2.5 mg/3 mL 2.5 mg (3 mL) inhalation Q4H PRN 05/28/22 10/06/24 04:30 Rx (0.083 %) solution for nebulization WHEEZING #25 vials cyclobenzaprine 10 mg tablet 10 mg PO BID PRN muscle spasm 03/19/23 Unknown History multivitamin (Daily Multi-Vitamin 1 tab PO DAILY SUPPLEMENT 04/26/23 10/06/24 04:30 History tablet) lisinopril 40 mg tablet 40 mg PO DAILY BP 01/21/24 10/05/24 History tramadol 50 mg tablet 50 - 100 mg (1 - 2 x 50 mg) PO Q8H 01/21/24 10/05/24 Rx PRN pain #30 tabs lidocaine 5 % topical patch patch topical .QD PAIN 08/21/24 Unknown History Allergy/AdvReac Type Severity Reaction Status Date / Time aspirin Allergy Intermediate Rash, Verified 09/25/24 13:11 rhinitis, trouble breathing cat dander Allergy Intermediate Rash, Verified 09/25/24 13:11 rhinitis, trouble breathing horse dander Allergy Intermediate Rash, Verified 09/25/24 13:11 rhinitis, trouble breathing ragweed pollen Allergy Intermediate Rash, Verified 09/25/24 13:11 rhinitis, trouble breathing Penicillins Allergy Rash Verified 09/25/24 13:11 vaccine adjuvant system, Allergy Anaphylaxis Verified 09/25/24 13:11 [id number] liposomal (From Shingrix (PF)) varicella-zoster virus Allergy Anaphylaxis Verified 09/25/24 13:11 glycoprotein E, recombinant (From Shingrix (PF)) celecoxib (From Celebrex) AdvReac Vomiting Verified 09/25/24 13:11 Surgical History History of cardiac radiofrequency ablation Hx of kidney removal Hx of hysterectomy H/O shoulder surgery H/O knee surgery Social History household members: none housing: house pets and animals: No Smoking Status: Former smoker pack-years: 15 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 caffeine: Yes what type of physical activity do you participate in: none sandy/baptist: Sabianist seatbelt use: always do you feel safe at home: Yes Review of Systems (Anesthesia) ROS Narrative System reviewed and no additional complaints, except as documented.
[2024-10-06 06:55] VITALS: BP 145/86; PULSE 75; RESP 16; TEMP 36.9; O2SAT 100
--- NOTE | 2024-10-06 07:14 | PCM.HP.BLA ---
History and Physical Date of Admission: 10/06/24 MR#: [id number] Acct: [id number] Name: AURORA SAWYER Rep #: [id number] : 1960 Provider: Dr. Raleigh Alcala MD Age/Sex: 64/F Location: [facility] [place].[facility] Status: Signed Intake Vital Signs 08/21/2515:02 09/25/2512:05 Height 5 ft 4 in 5 ft 4 in Weight: 232 lb BMI 39.8 Intake Visit Reasons: lumbar spine Chief Complaint: lumbar spine pre op Accompanied by: Friend Is patient in pain?: Yes Pain scale (1-10): 8 Allergies aspirin Allergy (Intermediate, Verified 09/25/24 13:11) Rash, rhinitis, trouble breathingcat dander Allergy (Intermediate, Verified 09/25/24 13:11) Rash, rhinitis, trouble breathinghorse dander Allergy (Intermediate, Verified 09/25/24 13:11) Rash, rhinitis, trouble breathingragweed pollen Allergy (Intermediate, Verified 09/25/24 13:11) Rash, rhinitis, trouble breathingPenicillins Allergy (Verified 09/25/24 13:11) Rashvaccine adjuvant system, AS01B liposomal (From Shingrix (PF)) Allergy (Verified 09/25/24 13:11) Anaphylaxisvaricella-zoster virus glycoprotein E, recombinant (From Shingrix (PF)) Allergy (Verified 09/25/24 13:11) Anaphylaxiscelecoxib (From Celebrex) Adverse Reaction (Verified 09/25/24 13:11) Vomiting Medications ?Medication ?Instructions ?Recorded ?Confirmed ?Type B-complex with vitamin C 1 cap PO DAILY SUPPLEMENT 12/31/20 09/25/24 History cholecalciferol (vitamin D3) 50 50 mcg PO DAILY SUPPLEMENT 12/31/20 09/25/24 History mcg (2,000 unit) capsule coenzyme Q10 75 mg capsule (Ultra 75 mg PO DAILY SUPPLEMENT 12/31/20 09/25/24 History CoQ10) vitamin E 200 unit capsule 200 unit PO DAILY SUPPLEMENT 12/31/20 09/25/24 History albuterol sulfate 2.5 mg/3 mL 2.5 mg (3 mL) inhalation Q4H PRN 05/28/22 09/25/24 Rx (0.083 %) solution for nebulization WHEEZING #25 vials cyclobenzaprine 10 mg tablet 10 mg PO BID PRN muscle spasm 03/19/23 09/25/24 History multivitamin (Daily Multi-Vitamin 1 tab PO DAILY SUPPLEMENT 04/26/23 09/25/24 History tablet) lisinopril 40 mg tablet 40 mg PO DAILY BP 01/21/24 09/25/24 History tramadol 50 mg tablet 50 - 100 mg (1 - 2 x 50 mg) PO Q8H 01/21/24 09/25/24 Rx PRN pain #30 tabs lidocaine 5 % topical patch patch topical .QD PAIN 08/21/24 09/25/24 History Have you fallen in the past year?: Yes PFSH Medical History Alcohol use Substance abuse Loss of consciousness Wears dentures Wears glasses Walker as ambulation aid Arthritis Injury of head and neck GERD (gastroesophageal reflux disease) Former smoker Facet arthritis of lumbar region Degenerative spondylolisthesis COVID-19 vaccine series completed History of COVID-19 Asthma HTN (hypertension) Surgical History History of cardiac radiofrequency ablation Hx of kidney removal Hx of hysterectomy H/O shoulder surgery H/O knee surgery Social History household members: none housing: house pets and animals: No Smoking Status: Former smoker pack-years: 15 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 caffeine: Yes what type of physical activity do you participate in: none sandy/yazidi: Tenriism seatbelt use: always do you feel safe at home: Yes HPI lumbar spine Details: This documentation accurately reflects the service provided and the decisions made by me, Dr. Raleigh Alcala MD 09/25/24 1305. Part of today?s visit was documented by Sam Ewing MA, acting as scribe. AURORA SAWYER is a 64 year old F here today for lumbar spine pre op visit. 08/29/24: AURORA SAWYER is a 64 year old F here today for left leg pain. Pt. advises she is having bilateral lateral hip pain. She states she has been having hip pain for over a year. She was given a low back injection 2023 did take away her hip pain for 3 days and then her pain returned in both hips, across her low back and down her left leg. She states it is a constant throbbing pain in her left leg increases with weight bearing. She denies numbness or tingling in her left leg. She c/o numbness in her right lower leg and foot. She is numb from her knee down. She had another lumbar steroid injection on 08/05/2024 which did take away her pain for about 3 days.She had a lumbar MRI 08/16/24 she would like to review. She has difficulty walking distances and tends to lean forward onto a shopping cart after walking certain distance. This is severely limited her ability to do activities of daily living as well as enjoy time with her grandchildren. Ortho Exam General General: Yes no acute distress Neurologic: Yes alert and Yes oriented x3 Spine SPINE TESTING CERVICAL THORACIC LUMBAR Musculoskeletal Strength 0=absent - 5=normal Details: Examination the back shows midline and bilateral paraspinal tenderness. Neurologic motion of lower extremity shows 5 x 5 power normal shows normal sensations in all dermatomes. Coding Level of Care Code Off vis,est,level 4 Diagnoses Spondylolisthesis, lumbar region M43.16 Spinal stenosis of lumbar region with neurogenic claudication M48.062 Time Spent (min) 35 Assessment and Plan Assessment and Plan (1) Spondylolisthesis, lumbar region: Status: Acute (2) Spinal stenosis of lumbar region with neurogenic claudication: Status: Acute Plan Again reviewed prior x-rays and MRI done recently. Patient has L4-5 grade 1-2 degenerative spondylolisthesis with dynamic instability on flexion-extension views. Severe central lateral recess and foraminal stenosis noticed. Left facet synovial cyst noticed. AP x-ray shows right worse than left hip arthritis, known left knee arthritis from previous images. Again explained to her the imaging findings in detail. Patient has significant neurogenic claudication difficulty walking distances and a forward stooping posture due to habitual leaning forward to relieve the claudication. Her function is declined significantly over the last year. She does have a left knee pain and x-ray evidence of right worse than left moderate hip arthritis. At this point she believes that her back symptoms are worse than the knee and hip pain. Discussed treatment options for the lumbar spine which include continued nonoperative treat measures versus surgery. Patient has had numerous episodes of physical therapy as well as epidural injections the last 1 was in July which did not seem to give her sustained relief. Her function is significantly declined and is affecting her quality of living. She wishes to proceed with surgical intervention. Surgical options were discussed in detail. L4-5 anterior posterior fusion with indirect decompression was discussed in detail. All risk benefits and alternatives were discussed. The risks include but are not limited to infection, bleeding, injury to nerves and vessels, ileus, vascular injury, visceral injury, need for further surgery, nerve root injury, foot drop, pseudoarthrosis, hardware failure, adjacent segment degeneration, persistent pain, persistent numbness and weakness, DVT, pulm embolism, pneumonia, atelectasis, cardiopulmonary event. Patient understands and agrees to proceed with surgery, consent was signed. All questions answered. All postoperative restrictions discussed. Discussed the presence of knee and hip arthritis can create a possibility of increased pain from a flareup after back surgery which may create challenges in terms of mobility and recovery from lumbar surgery. Patient understands and agrees to proceed.
--- NOTE | 2024-10-06 07:43 | NURSING ---
PT TO BE CANCELED BY DUE TO CONTAMINATED TRAYS, PT EDUCATED TO CONTACT THE OFFICE TO RESCHEDULE. IV DISCONTINUED PT D/C TO HOME.
[2024-10-07] VITALS (15 sets, daily range): BP systolic 135–176; BP diastolic 70–91; PULSE 57–88; RESP 16–18; TEMP 36.4–37.1; O2SAT 97–100; BMI 41.6
[2024-10-07] MEDS: Acetaminophen 500 MG Tablet 1000 MG PO ×3 (06:14→21:32)
[2024-10-07] MEDS: 0.9% Normal Saline (1000mL) 1,000 ML 15 ML IV (06:21)
[2024-10-07] MEDS: Magnesium 2 GM for ERAS IV (06:24)
--- NOTE | 2024-10-07 06:40 | PRE.ANES_ITS ---
ASA Classification* ASA Classification ASA Classification: 3 Assessment & Plan Anesthesia* Anesthesia Assessment Anesthesia Assessment: Discussed sedation and/or anesthesia options, risks, benefits, and alternatives with patient/parents/legal guardian/POA. Questions invited. The patient/parents/legal guardian/POA seems to understand and agrees to proceed with anesthesia plan. Reviewed the physical assessment, medical history, allergy history and patient home medications list prior to surgery/procedure/anesthetic and documented any changes. Performed airway and anesthesia risk assessments. Anesthesia Type Anesthesia Type: General History Source History Obtained from:: Patient and Chart Anesthesia Focused Assessment* Temperature: 98.7 F Pulse Rate: 88 Blood Pressure: 158/87 Respiratory Rate: 18 Pulse Ox: 97 Airway Assessment Mouth opens: >3 cm Mallampati Score: I Teeth Condition: Dentures (Patient has upper dentures. They are out.) and Missing (Patient is missing several teeth on the bottom. Rest of the teeth are tight.) Neck Range of motion (ROM): Full ROM Focused Labs Anesthesia Preop lab: CBC WBC 13.8 K/mm3 (4.4-11.0) H 08/20/24 18: 5 RBC 4.22 M/mm3 (4.2-5.4) 08/20/24 18:08/20/24 Hgb 12.9 g/dL (12.0-15.0) 08/20/24 18:08/20/24 Hct 39.3 % (37-47) 08/20/24 18:43 08/20/24 Plt Count 359 K/mm3 (150-450) 08/20/24 18:43 08/20/24 CHEMISTRY Potassium 4.2 mmol/L (3.3-5.1) 08/20/24 18:08/20/24 Sodium 135 mmol/L (133-145) 08/20/24 18:08/20/24 Magnesium 1.9 mg/dL (1.5-2.2) 10/03/24 11:16 10/03/24 BUN 20 mg/dL (4-19) H 08/20/24 18:43 08/20/24 Creatinine 0.91 mg/dL (0.70-1.20) 08/20/24 18:08/20/24 Glucose 104 mg/dL (70-99) H 08/20/24 18:43 08/20/24 POC Glucose 91 mg/dL (74-106) 10/06/24 06:23 10/06/24 COAG Pre-Assessment Diagnosis/Proposed Procedure Planned Operative Procedure(s): 360 Lumbar Fusion L4-5, ERAS Anesthesia History 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 When Was Last Pacemaker Check QUESTION #4 FULL TEXT: You/Your Family Experience fever (hyperthermia) with Anesthesia Last Oral Intake Last Oral intake: Last Oral Intake NPO since 04:45 10/07/24 06:02 Meds taken in AM with sips of No 10/07/24 06:02 water? Meds patient instructed to take am of surgery Any additional information?: Yes NPO since: 04:45 (Patient had her preop Ensure at 4:45 AM.) PONV PONV - construction equipment mechanic helper: PONV - construction equipment mechanic helper Female Yes 09/22/24 15:21 HX of Motion Sickness No 09/22/24 15:21 HX of N/V After Surgery No 09/22/24 15:21 Non-Smoker Yes 09/22/24 15:21 Duration of Surgery greater Yes 09/22/24 15:21 than 60 minutes Number of Risk Factors 3 09/22/24 15:21 PONV Score Moderate Risk 09/22/24 15:21 Height & Weight Height & Weight: Anesthesia: Height & Weight Height 5 ft 4 in 10/07/24 06:02 Weight: 110 kg 10/07/24 06:02 Body Mass Index (BMI) 41.6 10/07/24 06:02 Respiratory Assessment Respiratory Assessment - construction equipment mechanic helper: Respiratory Tract Infection Hx - construction equipment mechanic helper Hx Respiratory Tract Infection No 09/22/24 15:21 STOP Sleep Apnea STOP Sleep Apnea - construction equipment mechanic helper: STOP Sleep Apnea - construction equipment mechanic helper Hx Hypertension Yes 09/22/24 15:21 Hx Sleep Apnea No 09/22/24 15:21 CPAP BIPAP Do you snore loudly (louder No 09/22/24 15:21 than talking or can be heard Do you often feel tired/ No 09/22/24 15:21 fatigued/ sleepy during daytime? Has anyone observed you stop No 09/22/24 15:21 breathing during sleep? STOP Results Negative 09/22/24 15:21 QUESTION #5 FULL TEXT : Do you snore loudly (louder than talking or can be heard through closed doors)? 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 Specify any problems Hx of Preganancy in last 3 No 09/22/24 15:21 Months Nurse Filling Out Transfusion JZOMARIA L 09/22/24 15:21 & Questions: Date: 09/22/24 09/22/24 15:21 Time: 15:24 09/22/24 15:21 Patient unable to answer at this time (ie. confused, unrespo /Reproduction History /Reproductive History - construction equipment mechanic helper: /Reproductive Hx- construction equipment mechanic helper Hx Now No 09/22/24 15:21 Gestational Age (in weeks): EDC: Hx Hx Para Hx Section SAB No 09/22/24 15:21 Active Medications Active Medications: Current Medications Generic Name Dose Route Start Last Admin Trade Name Freq PRN Reason Stop Dose Admin Acetaminophen 1,000 mg 10/07/24 07:30 10/07/24 06:14 Acetaminophen 500 Mg Tablet PO 10/07/24 07:31 1,000 mg X1 ONE Administration Clindamycin Phosphate 900 mg in 50 mls @ 75 mls/hr 10/07/24 07:30 Cleocin IV 10/07/24 08:09 PREOP ONE Tranexamic Acid 1,000 mg/ 110 mls @ 440 mls/hr 10/07/24 07:30 Sodium Chloride IV 10/07/24 07:44 X1 ONE Tranexamic Acid 1,000 mg/ 110 mls @ 440 mls/hr 10/07/24 07:30 Sodium Chloride IV 10/07/24 07:44 X1 ONE Magnesium Sulfate 2 gm/ 104 mls @ 208 mls/hr 10/07/24 07:30 10/07/24 06:24 Dextrose IV 10/07/24 07:59 208 mls/hr X1 ONE Administration Sodium Chloride 1,000 mls @ 15 mls/hr 10/07/24 05:50 10/07/24 06:21 IV 15 mls/hr .Q48H GIOVANNA Administration Insulin Human Lispro 1 - 6 unit 10/07/24 07:30 Insulin Lispro 100 Unit/Ml Insuln.Pen SC Q4H PRN PRN BG>/= 180, SEE PROTOCOL Protocol PFSH Medical History Alcohol use Substance abuse Loss of consciousness Wears dentures Wears glasses Walker as ambulation aid Arthritis Injury of head and neck GERD (gastroesophageal reflux disease) Former smoker Facet arthritis of lumbar region Degenerative spondylolisthesis COVID-19 vaccine series completed History of COVID-19 Asthma HTN (hypertension) Home Medications ?Medication ?Instructions ?Recorded ?Last Taken ?Type B-complex with vitamin C 1 cap PO DAILY SUPPLEMENT 10/06/24 04:30 History cholecalciferol (vitamin D3) 50 50 mcg PO DAILY SUPPLE MENT 12/31/20 10/06/24 04:30 History mcg (2,000 unit) capsule coenzyme Q10 75 mg capsule (Ultra 75 mg PO DAILY SUPPL EMENT 12/31/20 10/06/24 04:30 History CoQ10) albuterol sulfate 2.5 mg/3 mL 2.5 mg (3 mL) inhalation Q4H PRN 05/28/22 10/06/24 Rx (0.083 %) solution for nebulization WHEEZING #25 vials cyclobenzaprine 10 mg tablet 10 mg PO BID PRN muscle s pasm 03/19/23 10/06/24 History multivitamin (Daily Multi-Vitamin 1 tab PO DAILY SUPPL EMENT 04/26/23 10/06/24 04:30 History tablet) lisinopril 40 mg tablet 40 mg PO DAILY BP 01/21/24 0 10/05/24 History tramadol 50 mg tablet 50 - 100 mg (1 - 2 x 50 mg) PO Q8H 01/21/24 10/06/24 Rx PRN pain #30 tabs lidocaine 5 % topical patch patch topical .QD PAIN 12/10 Unknown History Allergy/AdvReac Type Severity Reaction Status Date / Time aspirin Allergy Intermediate Rash, Verified 10/07/24 06:49 rhinitis, trouble breathing cat dander Allergy Intermediate Rash, Verified 10/07/24 06:49 rhinitis, trouble breathing horse dander Allergy Intermediate Rash, Verified 10/07/24 06:49 rhinitis, trouble breathing ragweed pollen Allergy Intermediate Rash, Verified 10/07/24 06:49 rhinitis, trouble breathing Penicillins Allergy Rash Verified 10/07/24 06:49 vaccine adjuvant system, Allergy Anaphylaxis Verified 10/07/24 06:49 AS01B liposomal (From Shingrix (PF)) varicella-zoster virus Allergy Anaphylaxis Verified 10/07/24 06:49 glycoprotein E, recombinant (From Shingrix (PF)) celecoxib (From Celebrex) AdvReac Vomiting Verified 10/07/24 06:49 Surgical History History of cardiac radiofrequency ablation Hx of kidney removal Hx of hysterectomy H/O shoulder surgery H/O knee surgery Social History household members: none housing: house pets and animals: No Smoking Status: Former smoker pack-years: 15 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 caffeine: Yes what type of physical activity do you participate in: none sandy/catholic: Mormonism seatbelt use: always do you feel safe at home: Yes Review of Systems (Anesthesia) ROS Narrative System reviewed and no additional complaints, except as documented. Physical Exam Resp clear to auscultation bilaterally
[2024-10-07 06:49] LABS: Bedside Glucose 111 mg/dL (74-106)
--- NOTE | 2024-10-07 07:34 | RAD_ITS ---
EXAM: XR Lumbosacral Spine, 2 or 3 Views CLINICAL INDICATION: 360 LUMBAR FUSION L4-5 TECHNIQUE: Frontal and lateral views of the lumbar spine and sacrum. COMPARISON: No relevant prior studies available. FINDINGS: VERTEBRAE: Unremarkable. No acute fracture. Normal alignment. SACRUM/COCCYX: Unremarkable as visualized. No acute fracture. DISC SPACES: No acute findings. No significant narrowing. SOFT TISSUES: Unremarkable. OTHER FINDINGS: Fluoroscopic guidance was used intraoperatively. A total of 16 images were obtained. Total fluoroscopy time was 104 seconds. Total radiation dose was 79.18 mGy. RAD/Lumbar Spine 2 or 3 Views IMPRESSION: Fluoroscopic guidance was used intraoperatively. Please refer to the operative note for further details. Reading Location: [facility]
[2024-10-07] MEDS: Clindamycin 900 MG/50 ML BAG 75 MG IV ×2 (07:40→15:31)
[2024-10-07] MEDS: TRANEXAMIC ACID 1,000 MG in 0.9% Normal Saline (100mL Bag) 100 ML 440 MG IV ×2 (07:45→10:38)
[2024-10-07] MEDS: Ropivacaine 0.5% 30 ML Vial (10:42)
--- NOTE | 2024-10-07 11:13 | PCM.POST.ANE ---
Anesthesia: Postop Eval I Current Vital Signs Temperature: 97.6 F Pulse Rate: 74 Blood Pressure: 135/70 Respiratory Rate: 16 Pulse Ox: 100 Oxygen Delivery Method: Simple Mask Oxygen Flow Rate (L/min): 6 Assessment Airway patent: Yes Spontaneous unlabored respirations: Yes Mental status: Awake and Calm nausea: No Vomiting: No Anesthesia Complication: No Fluid Hydration Crystalloid volume administer (ml): 1,200 Total IV fluid infused: 1,200 Progress Note Anesthesia document: Postop Eval 1 completed: Yes
--- NOTE | 2024-10-07 11:28 | PCM.OPRPT ---
Procedures Musculoskeletal 20xxx-29xxx: Other Procedure See Report Operative Report (Standard) Operative Information Date of Procedure: 10/07/24 Pre-Operative Diagnosis: L4-5 spondylolisthesis, stenosis with neurogenic claudication Post-Operative Diagnosis: Same Surgery/Procedure Performed: L4-5 oblique lumbar interbody fusion usability engineer: Yes Business Development Assistant: Oralia Reilly Tasks completed by first line production supervisor: Closing, Removing tissue, Hemostasis: Electrocautery and Retracting Type of Anesthesia: General RN Documented Start/Stop Times: Operation Date: 10/07/24 07:30 Case Time Into Pre-Op 10/07/24 05:50 Out of Pre-Op 10/07/24 07:30 Anesthesia Start 10/07/24 07:33 Into Room 10/07/24 07:33 Procedure Start 10/07/24 08:11 Procedure End 10/07/24 10:58 Anesthesia End 10/07/24 11:07 Out of Room 10/07/24 11:07 Into Recovery 10/07/24 11:10 Procedure Start Time: 08:11 Procedure Stop Time: 10:58 Select all DRAINS/GRAFTS/IMPLANTS that apply: Graft Graft details: Allograft cancellous bone chips, autologous bone marrow aspirate and Implanted device Implanted device details: DePuy cougar lateral lumbar interbody cage?peek Estimated Blood Loss: 50 cc Specimen collected: No Description of surgery: Preoperative diagnosis: L4-5 spondylolisthesis, stenosis with neurogenic claudication Postoperative diagnosis: Same Name of procedures L4-5 oblique lumbar interbody fusion (OLIF), minimally invasive left sided approach, lateral decubitus: ? L4-5 anterolateral spinal fusion ? L4-5 insertion of cage ? Bone graft aspirate left iliac crest separate incision ? Allograft cancellous chips Attending Surgeon: Dr. Raleigh Alcala Estimated blood loss: 50 mL Anesthesia: General Complications: None Indications: Patient is a 64-year-old pleasant lady who has had a long history of low back pain and left worse than right lower extremity radiation, difficulty walking distances. Xrays & MRI revealed L4-5 unstable spondylolisthesis with stenosis. After undergoing a prolonged period of nonoperative treatment, the patient elected to undergo surgical decompression & fusion. All surgical options were discussed with the patient including anterior and posterior approaches. All risks and benefits associated with the procedure were explained to the patient. The risks include but are not limited to infection, bleeding, injury to nerves and vessels including major vessels like IVC and aorta, persistent paresthesia, persistent pain, dural tear, need for further procedures, adjacent segment degeneration, pseudoarthrosis, hardware failure, retrograde ejaculation, paralytic ileus, etc. Procedure: The patient was identified in the preoperative holding suite using Unique patient identifiers. Skin was marked, consent was reviewed, and all questions were answered. The patient was then brought back to the operative room. A surgical timeout was performed to make sure correct procedure was being done on the correct patient and all operative room staff were on the same page. General endotracheal anesthesia was then given to the patient. Caldera catheter was inserted. The patient was then carefully positioned in the right lateral decubitus position with the left side up on a regular OR table. Axillary roll was placed and all bony prominences were well- padded. Hip positioners were placed in the posterior buttocks and anterior sternal area. The surgical area was prepped and draped in usual fashion. Preoperative antibiotic was injected IV as preoperative antibiotic. A final timeout was then again done just before starting the procedure. A 2 inch incision oblique was taken in the left lower quadrant of the abdomen 2 fingerbreadths away from the iliac crest and the lower ribs. Sharp dissection with Bovie was carried out up to the fascia covering the external oblique. The external oblique, internal oblique and transversus abdominis muscles were split along the muscle fibers and retroperitoneal space was entered. Sponge sticks were utilized to move the bowel and peritoneum [id number]-way and psoas muscle was exposed staying within the retroperitoneal plane. Purple Binderframe retractor system was positioned and the retractor blade was applied onto the psoas. The interval between psoas and midline structures was developed and appropriate retractors were placed. Once adequate interval was cleared, a disc space was identified and a marker x-ray was taken. This identified the L4-5 disc level. The prepsoas interval was then traced inferiorly. Annulotomy was done with a long handled knife. Pituitary was used to remove disc material. Curettes were used to prepare the endplates. Disc space spreaders were utilized to distract and increase the disc height. Near complete discectomy was performed. Smaller disc distractors were also used to bluntly perform a contralateral annulotomy. Trials of serially increasing sizes were used. A Jamshidi needle was used to aspirate bone marrow from the left anterior iliac crest through a separate incision and this aspirate was mixed with the allograft bone chips. A Depuy Rogerson cage of size of the 18 x 15 x 14 mm with 15 degrees lordosis was packed with corticocancellous allograft bone chips mixed with bone marrow aspirate. This was inserted into the L4-5 disc space. AP and lateral C-arm pictures were taken to confirm good position of the cage. Some bone chips were also packed around the cages. Screw with washer was placed into the lower L4 body with a washer partially covering the cage at L4-5. Hemostasis was confirmed. The retractor blades were removed. Closure was done in layers with a continuous strand of # 1 Vicryl in all muscle layers. 2-0 Vicryl was used for subcutaneous tissue and 4-0 for Monocryl for the skin. Steri-Strips were applied and 4 x 4 gauze and Tegaderm were applied. Pulverizing And Sifting Operator Oralia Reilly PA-C. My physician costumer assistant was a vital part of this case. They were important in appropriate retraction during the case, and protection of soft tissues during the procedure. Their intimate knowledge of the case and my steps aided in safe and expedient completion of the procedure as well as appropriate position of the patient during the surgery. They were also vital in assisting with closure under my direct supervision. Surgical Findings: See operative note Complications Complications: No
--- NOTE | 2024-10-07 11:31 | PCM.OPRPT ---
Procedures Musculoskeletal 20xxx-29xxx: Other Procedure See Report Operative Report (Standard) Operative Information Date of Procedure: 10/07/24 Pre-Operative Diagnosis: L4-5 spondylolisthesis, stenosis with neurogenic claudication Post-Operative Diagnosis: Same Surgery/Procedure Performed: L4-5 posterior spinal instrumented fusion prepress manager: Yes Laborer Golf Course: Oralia Reilly Tasks completed by waiter/waitress first class: Closing, Removing tissue, Implanting device, Hemostasis: Electrocautery and Retracting Type of Anesthesia: General RN Documented Start/Stop Times: Operation Date: 10/07/24 07:30 Case Time Into Pre-Op 10/07/24 05:50 Out of Pre-Op 10/07/24 07:30 Anesthesia Start 10/07/24 07:33 Into Room 10/07/24 07:33 Procedure Start 10/07/24 08:11 Procedure End 10/07/24 10:58 Anesthesia End 10/07/24 11:07 Out of Room 10/07/24 11:07 Into Recovery 10/07/24 11:10 Procedure Start Time: 08:11 Procedure Stop Time: 10:58 Select all DRAINS/GRAFTS/IMPLANTS that apply: Graft Graft details: Allograft cancellous chips and Implanted device Implanted device details: DePuy Viper prime pedicle screw instrumentation Estimated Blood Loss: 50 cc Specimen collected: No Description of surgery: Preoperative diagnosis: L4-5 spondylolisthesis, stenosis with neurogenic claudication Postoperative diagnosis: Same Name of procedures: L4-5 posterior percutaneous pedicle screw instrumented fusion, prone: ? L4-5 posterior spinal fusion 81146 ? L4-5 posterior pedicle screw instrumentation [id number] ? Allograft cancellous chips [id number] Attending Surgeon: Dr. Raleigh Alcala Estimated blood loss: 50 mL (total for entire case) Anesthesia: General Complications: None Description of procedure: After the anterior procedure was complete, the patient was then turned supine. The patient was then transferred to Layton table in prone position. Back was prepped and draped in usual fashion. C-arm AP view was then taken. C-arm was positioned in a way that L4 was centralized and superior endplate of was parallel to the beam. Spinous process was centered between the pedicles. Midline was marked with skin marker and lateral borders of the pedicles were also marked. Skin marker was also utilized to malcom transversely across the middle of the pedicles at L4. 2 vertical paramedian incisions of 1 inch were placed. The fascia was incised vertically. Finger dissection was utilized to palpate the transverse process and facet joint. Viper Prime screws with towers were inserted and docked onto the transverse processes. This was then slowly moved medially to reach the superior articular process of L4. This was then confirmed on C-arm and then a mallet was utilized to drive the trocar into the pedicle going up to the medial wall of the pedicle on AP view. This was performed both sides. C-arm lateral view confirmed that the tip of the trocar was in the vertebral body, and the screw was advanced into the pedicle and vertebral body. This was repeated similarly at L5 bilaterally. Screw sizes were 7 x 50 mm at L4 and L5 on both sides. 45 mm precontoured titanium 5.5 mm lordotic inocente on both sides were then passed through the screw extensions and reduced down to the screws with the help of [employer] instrumentation system on both sides. AP and lateral view of the C-arm showed good positioning of the screws and cages. Final tightening with the torque screwdriver was then completed. Russ was utilized to roughen the facet joint at L4-5 on the right side. Cancellous allograft bone chips mixed with bone marrow aspirate were then placed over this decorticated area. Hemostasis was achieved. Closure was done in layers with 0 Vicryls for the fascia, 2-0 Vicryls for the subcutaneous tissue, and Monocryl for the skin. Dermabond was applied. Dressings were applied covered with Tegaderm. The patient was then turned supine onto a hospital bed. The patient was extubated and taken to PACU in stable condition. The patient tolerated the procedure well and no complications occurred. Depuy [place] cage & Viper Prime minimally invasive pedicle screw instrumentation system was utilized in this case. No dural tear was identified intraoperatively. I was present for the entirety of the case and performed the surgery. Rounder And Backer Oralia Reilly PA-C. My physician front office medical assistant was a vital part of this case. They were important in appropriate retraction during the case, and protection of soft tissues during the procedure. Their intimate knowledge of the case and my steps aided in safe and expedient completion of the procedure as well as appropriate position of the patient during the surgery. They were also vital in assisting with closure under my direct supervision. Surgical Findings: See operative note Complications Complications: No
--- NOTE | 2024-10-07 11:54 | POSTOPAN2_ITS ---
Anesthesia Postop Eval I Sum Postop Eval Completion status Anesthesia document: Postop Eval 1 completed: Yes Anesthesia Postop Eval I Summary Anesthesia Postop Eval I Summary: Anesthesia Postop Eval I: Assessment Summary Airway patent Yes 10/07/24 11:14 SALES ENGINEER ENGINEERED [email or web address] Spontaneous unlabored Yes 10/07/24 11:14 SALES ENGINEER [employer]ODU[employer].[email or web address] respirations Mental status Awake,Calm 10/07/24 11:14 SALES ENGINEER [employer]INE[employer]ODUCTS.[email or web address] nausea No 10/07/24 11:14 SALES ENGINEER [employer]ODU[employer].[email or web address] Vomiting No 10/07/24 11:14 SALES ENGINEER [employer]ODU[employer].[email or web address] Anesthesia Postop Eval I: Fluid Summary Crystalloid volume administer 1,200 10/07/24 11:14 SALES ENGINEER [employer]INEERED [email or web address] (ml) Colloids volume administered ( ml) Blood Product volume administered (ml) Total IV fluid infused 1,200 10/07/24 11:14 SALES ENGINEER [employer]INEERED [employer]ODUCTS.[email or web address] Anesthesia Postop Eval I: Summary Notes Anesthesia Complication No 10/07/24 11:14 SALES ENGINEER [employer]INE[employer]ED [employer]ODUCTS.[email or web address] Anesthesia Complication Comment: Post-operative progress note Anesthesia: Postop Eval II Evaluation Mental status: Awake and Calm Pain Level: 0 nausea: No Vomiting: No Complications Anesthesia Complication: No
--- NOTE | 2024-10-07 11:54 | PCM.POSTANE2 ---
Anesthesia Postop Eval I Sum Postop Eval Completion status Anesthesia document: Postop Eval 1 completed: Yes Anesthesia Postop Eval I Summary Anesthesia Postop Eval I Summary: Anesthesia Postop Eval I: Assessment Summary Airway patent Yes 10/07/24 11:14 [email or web address] Spontaneous unlabored Yes 10/07/24 11:14 LACE [email or web address] respirations Mental status Awake,Calm 10/07/24 11:14 LACE [email or web address] nausea No 10/07/24 11:14 LACE [email or web address] Vomiting No 10/07/24 11:14 LACE [email or web address] Anesthesia Postop Eval I: Fluid Summary Crystalloid volume administer 1,200 10/07/24 11:14 [email or web address] (ml) Colloids volume administered ( ml) Blood Product volume administered (ml) Total IV fluid infused 1,200 10/07/24 11:14 LACE [email or web address] Anesthesia Postop Eval I: Summary Notes Anesthesia Complication No 10/07/24 11:14 LACE [email or web address] Anesthesia Complication Comment: Post-operative progress note Anesthesia: Postop Eval II Evaluation Mental status: Awake and Calm Pain Level: 0 nausea: No Vomiting: No Complications Anesthesia Complication: No
[2024-10-07] MEDS: Morphine 4 MG/ML Syringe IV ×3 (13:42→18:41)
[2024-10-07] MEDS: Methocarbamol 500 MG Tablet 1000 MG PO ×3 (14:06→21:33)
--- NOTE | 2024-10-07 20:06 | PN.HOSP_ITS ---
Reason for Visit Reason for Visit: Diagnoses Encounter for other preprocedural examination (10/07/24) Subjective Subjective 64-year-old female history of hypertension and asthma who presented [facility] 10/07/2024 for an L4-5 posterior spinal instrumented fusion with Dr. Alcala. Hospitalist consulted for postoperative medical management. Patient seen postoperatively and is resting comfortable in bed, has been up and moving around he reports some pain but it is manageable. She denies any chest pain or shortness of breath, no nausea or abdominal pain. No new or acute complaints aside from postoperative pain which again she finds manageable Objective Data Objective Data Vital Signs: Vital Signs Temp Pulse Resp BP Pulse Ox O2 Del Method O2 Flow Rate 98.6 F 83 18 139/80 H 99 Room Air 4 10/07/24 17:23 10/07/24 17:23 10/07/24 17:23 10/07/24 17:23 10/07/24 17:23 10/07/24 17:23 10/07/24 14:38 Oxygen Flow Rate (L/min) 4 Oxygen Delivery Method Room Air Weight: 110 kg Body Mass Index (BMI) 41.6 Intake & Output: Intake and Output for Last 24 Hours 10/05/24 10/06/24 10/07/24 23:59 23:59 23:59 Intake Total 1628 / 1628 Output Total 125 / 125 Balance 1503 / 1503 Lab / Micro Data Labs: Laboratory Results - last 24 hr 10/07/24 06:12: POC Glucose 111 H Micro: Microbiology 10/03/24 11:19 Swab (Method) Nasal Screen MRSA/MSSA - Final Radiography Diagnostic Testing: Radiology Impression Lumbar Spine X-Ray 10/07/24 07:34 IMPRESSION: Fluoroscopic guidance was used intraoperatively. Please refer to the operative note for further details. Reading Location: [facility] Physical Exam Narrative General: Alert, oriented, no apparent distress HEENT: Atraumatic, normocephalic Eyes: Anicteric, normal conjunctiva, extraocular movements grossly intact Neck: Supple Respiratory: Clear to auscultation bilaterally, normal respiratory effort Cardiovascular: Regular rate and rhythm GI: Soft, nontender, nondistended Extremities: No edema Musculoskeletal: Moving all extremities Neuro: No overt focal neurological deficits Skin: No rashes appreciated Psych: Cooperative Assessment & Plan Assessment/Plan (1) HTN (hypertension): PLAN: Plan # Hypertension - Patient with significant hypertension postoperatively with a blood pressure of 176/88 so we will continue her home blood pressure medications at this time but will add holding parameters # Asthma - Add patient's home as needed albuterol # L4-5 spondylolisthesis, stenosis with neurogenic claudication - Status post L4-5 posterior spinal instrumented fusion with Dr. Alcala 10/07/2024 - Management and pain control per primary - PT/OT #Morbid obesity -BMI documented as 41.6 kg/m? at time of admission -Complicates treatment, prognosis, outcomes -Recommend weight loss and lifestyle changes #DVT ppx: Timing and agent at the discretion of primary Alyssa Renae MD Time spent in the patient's overall evaluation, decision-making process, review of diagnostic data, adjustment of management, discussion with other providers, nursing and ancillary staff involved in patient's care documentation, 17 Minutes Charges/Coding Visit Charges Office Visits / Consults: 79499 OV L2 Est 10min
[2024-10-07] MEDS: oxyCODONE 5 MG Tablet PO (21:32)
[2024-10-07] MEDS: Senna/Docusate Sodium 1 Tablet 2 TABLET PO (21:33)
[2024-10-08] MEDS: Clindamycin 900 MG/50 ML BAG 75 MG IV (00:33)
[2024-10-08] MEDS: Morphine 4 MG/ML Syringe IV ×2 (00:58→21:03)
[2024-10-08 01:09] VITALS: BP 118/59; PULSE 85; RESP 18; TEMP 36.5; O2SAT 100
[2024-10-08 04:10] VITALS: BP 135/75; PULSE 68; RESP 18; TEMP 36.4; O2SAT 99
[2024-10-08] MEDS: oxyCODONE 5 MG Tablet PO ×4 (04:12→20:03)
[2024-10-08] MEDS: Acetaminophen 500 MG Tablet 1000 MG PO ×3 (06:22→20:04)
[2024-10-08 06:54] LABS: Hemoglobin 10.3 g/dL (12.0-15.0); Mean Corp Hgb Conc 33.2 g/dL (32-36); Mean Corpuscular Hgb 31.8 pg (27.0-32.0); Mean Corpuscular Volume 95.7 fL (81-99); Mean Platelet Vol. 9.9 fl (6.2-12.0); Platelet Count 268 K/mm3 (150-450); RBC Distribution Width CV 12.6 % (11.6-14.6); RBC Distribution Width SD 43.8 fl (35.1-43.9); Red Blood Count 3.24 M/mm3 (4.2-5.4); White Blood Count 11.1 K/mm3 (4.4-11.0)
[2024-10-08 07:30] LABS: Anion Gap 11 (5-15); BUN 8 mg/dL (4-19); BUN/Creat Ratio 13.4 RATIO (10-20); Calcium,Total 9.2 mg/dL (7.6-11.0); Carbon Dioxide 23.3 mmol/L (21.0-32.0); Chloride 103 mmol/L (98-108); EST Glomerular Filtration Rate 100 (>60); Estimated Creatinine Clearance 114.87 ml/min (50-250); Glucose 101 mg/dL (70-99); Potassium 4.3 mmol/L (3.3-5.1); Sodium Level 137 mmol/L (133-145)
--- NOTE | 2024-10-08 08:05 | RAD_ITS ---
PROCEDURE: LUMBAR SPINE 2 OR 3 VIEWS 10/08/2024 REASON FOR EXAM: S/P LUMBAR FUSION TECHNIQUE: 2 view(s) of the lumbar spine COMPARISON: 10/07/2024. FINDINGS: Mild degenerative levoscoliosis apex at L3. Decompression and fusion at L4-L5. Unremarkable transpedicular screws. Unremarkable disc spacer. Grade 1 anterolisthesis of L4 on L5. There are diffuse spondylotic changes. Findings are demonstrated to by diffuse disc space narrowing, osteophyte formation and degenerative endplate sclerosis. There is diffuse facet joint arthropathy with secondary bilateral neural foramina narrowing. No fracture or dislocation is seen. No aggressive lytic or blastic bony lesion is noted. RAD/Lumbar Spine 2 or 3 Views IMPRESSION: 1. Decompression and fusion at L4-L5. 2. Unremarkable metallic hardware. Reading Location: [place] [id number]
[2024-10-08 09:10] LABS: Hemoglobin 10.4 g/dL (12.0-15.0)
[2024-10-08 09:20] VITALS: BP 143/68; PULSE 85; RESP 18; TEMP 36.5; O2SAT 99
[2024-10-08] MEDS: Senna/Docusate Sodium 1 Tablet 2 TABLET PO ×2 (09:27→20:05)
[2024-10-08] MEDS: Cholecalciferol (VIT D3) 25 MCG TABLET (1,000 UNITS) 50 MCG PO (09:27)
[2024-10-08] MEDS: Lisinopril 40 MG Tablet PO (09:27)
[2024-10-08] MEDS: Methocarbamol 500 MG Tablet 1000 MG PO ×4 (09:27→20:05)
--- NOTE | 2024-10-08 12:39 | CASEMGMT ---
EDGAR MELCHOR Assessment Face to Face with patient for initial transition planning/care coordination assessment. EDGAR MELCHOR introduced self and role at [facility], pt voices understanding. Pt is A&Ox4 and is resting comfortably in bed and is calm. Care providers, pharmacy, and demographics verified. Admitting dx: 360 Lumbar Fusion LACE Strata: 1 PCP: Alexi Zamudio Specialists: Fredrick (Ortho), Lizzie (Ortho), Arcadio (PM) Preferred Pharmacy: [facility] Insurance: [facility] AD[facility] Prescription Benefit: Yes LNOK: Nella Palacios (Sister), Yoni Moreau (Brother) Living Arrangements: Pt lives alone in a ground level apartment with 1 step to enter. Pt states that no matter where she murphy she has a long walk to access her apartment. Pt states that there is a sidewalk that she has to use to get to her apartment and that there are multiple bumps in the path. Pt states that she does not feel safe returning home alone in her current condition. Pt does state that she has some support from friends, family, and neighbors. ADLs/IADLs: Pt states that she is normally independent but is currently requiring assistance Transportation: Pt states that she does not drive and that her sister and friends drive her DME: FWW, Rollator, Raised toilet seat, shower chair, grab bars. Medical alert system resources provided. HHC/SNF: Denies history Pt?s goal: Return to [facility] prior to returning home. Plan: Anticipate SNF vs return home with HHC. Pt states that she does not feel safe returning home alone. See above. Pt states that she would like to attend a SNF for a short term rehab stay to help strengthen her before returning home alone. Care Management to follow. Report given to MS3 EDGAR MELCHOR and SW. Dinesh Rincon RN, CM
--- NOTE | 2024-10-08 12:53 | CASEMGMT ---
Discharge Planning A list of?SNF providers including quality and resource use data and consistent with the patient's preferred geographic region, medical needs, and insurance network was created in [employer] Guide.? This list was provided to the SW. Irena Ceja Discharge Planning Asst.
--- NOTE | 2024-10-08 14:40 | PN.ORTHO_ITS ---
Subjective Subjective Postop day 1 L4-5 fusion. Patient is doing well postoperatively with her pain well-managed. Patient has walked with therapy who is cleared for home discharge. Patient says that her pain down her legs before surgery has improved. Patient has not yet passed gas. Seen with Dr. Alcala. Objective Data Objective Data Vital Signs: Vital Signs Temp Pulse Resp BP Pulse Ox O2 Del Method O2 Flow Rate 97.7 F L 85 18 143/68 H 99 Room Air 4 10/08/24 09:20 10/08/24 09:20 10/08/24 09:20 10/08/24 09:20 10/08/24 09:20 10/08/24 09:20 10/08/24 08:39 Oxygen Flow Rate (L/min) 4 Oxygen Delivery Method Room Air Weight: 242 lb 8.136 oz Body Mass Index (BMI) 41.6 Intake & Output: Intake and Output for Last 24 Hours 10/06/24 10/07/24 10/08/24 23:59 23:59 23:59 Intake Total 2428 / 2428 1037.25 / 1037.25 Output Total 125 / 125 Balance 2303 / 2303 1037.25 / 1037.25 Lab / Micro Data 10/08/24 09:00 10/08/24 06:35 Labs: Laboratory Results - last 24 hr 10/08/24 06:35: WBC 11.1 H, RBC 3.24 L, Hgb 10.3 L, Hct 31.0 L, MCV 95.7, MCH 31.8, MCHC 33.2, RDW Std Deviation 43.8, RDW Coeff of Jassi 12.6, Plt Count 268, MPV 9.9, Sodium 137, Potassium 4.3, Chloride 103, Carbon Dioxide 23.3, Anion Gap 11, BUN 8, Creatinine 0.60 L, Estim Creat Clear Calc 114.87, Est GFR (MDRD) Non- Af 100, BUN/Creatinine Ratio 13.4, Glucose 101 H, Calcium 9.2 10/08/24 09:00: Hgb 10.4 L Micro: Microbiology 10/03/24 11:19 Swab (Method) Nasal Screen MRSA/MSSA - Final Radiography Diagnostic Testing: Radiology Impression Lumbar Spine X-Ray 10/08/24 08:05 IMPRESSION: 1. Decompression and fusion at L4-L5. 2. Unremarkable metallic hardware. Reading Location: [place] [id number] Physical Exam Narrative Neurological exam of the lower extremities shows 5x5 power. Normal sensations across all dermatomes. Tegaderm and gauze CDI over back and belly incision. Const alert, oriented x3 and no apparent distress Assessment & Plan Assessment/Plan (1) Status post lumbar spinal fusion: PLAN: Plan Postop day 1 L4-5 fusion. Obtained and reviewed x-rays today which show hardware and bone graft in good position. Patient has walked with therapy and is cleared for home discharge from their end. Patient has not yet passed gas. Dulcolax x 1 ordered. Patient reports that she lives alone but is having family come early next month to help her. Encouraged and reviewed the use of the incentive spirometer. Reviewed restrictions of no bending, lifting, twisting. She will follow-up in the clinic in 2 weeks. Patient is in agreement.
[2024-10-08] MEDS: Bisacodyl 5 MG Tablet 10 MG PO (15:01)
[2024-10-08 16:00] VITALS: BP 148/69; PULSE 99; RESP 18; TEMP 36.6; O2SAT 99
--- NOTE | 2024-10-08 19:49 | PCM.HOSP.N ---
Hospitalist Note We were consulted for postoperative medical management. Patient remains stable. Hemodynamics and vital signs all look good. Labs are unremarkable. From medical standpoint patient is stable to go home. Will sign off please reconsult if needed.
[2024-10-08 20:09] VITALS: BP 158/65; PULSE 104; RESP 18; TEMP 37.1; O2SAT 98
[2024-10-08] MEDS: 0.9% Saline Lock 10 ML Syringe IV (21:03)
[2024-10-09] MEDS: oxyCODONE 5 MG Tablet PO ×3 (00:20→12:16)
[2024-10-09 03:47] VITALS: BP 136/61; PULSE 92; RESP 18; TEMP 36.7; O2SAT 95
[2024-10-09] MEDS: Acetaminophen 500 MG Tablet 1000 MG PO ×2 (06:16→13:40)
[2024-10-09 07:39] VITALS: O2SAT 94
[2024-10-09] MEDS: Methocarbamol 500 MG Tablet 1000 MG PO ×2 (07:48→13:40)
[2024-10-09] MEDS: Senna/Docusate Sodium 1 Tablet 2 TABLET PO (07:48)
[2024-10-09] MEDS: Lisinopril 40 MG Tablet PO (07:48)
[2024-10-09] MEDS: Cholecalciferol (VIT D3) 25 MCG TABLET (1,000 UNITS) 50 MCG PO (07:48)
[2024-10-09 09:09] VITALS: BP 145/85; PULSE 101; RESP 18; TEMP 36.2; O2SAT 97
[2024-10-09 09:10] VITALS: BP 143/84; PULSE 98; RESP 18; TEMP 37; O2SAT 99
--- NOTE | 2024-10-09 10:21 | PHA.DC.MC.R ---
Pharmacy [facility] Pharmacy Service has performed discharge medication reconciliation and counseling for this patient. 1. ACETAMINOPHEN 500MG PO Q6H 2. METHOCARBAMOL 750MG PO TID PRN MUSCLE PAIN/SPASMS 3. OXYCODONE 2.5-5MG PO Q6H PRN PAIN 4. SENNA/DOCUSATE 2T PO BID PRN CONSTIPATION The patient's discharge medication list was reviewed for discrepancies and discrepancies were resolved. The patient was counseled on the following discharge medications and changes in medications for homegoing were reviewed. The Reason for Use, instructions for use, and potential side effects were reviewed for all new medications. The patient's questions regarding all of their medications were answered. The patient was able to verbally demonstrate an understanding of their discharge medications. Patient counseled by pharmacy intake coordinator, Janes. Medications at Discharge Home Medications B-complex with vitamin C 1 cap PO DAILY SUPPLEMENT 12/31/20 cholecalciferol (vitamin D3) 50 mcg (2,000 unit) capsule 50 mcg PO DAILY SUPPLEMENT 12/31/20 coenzyme Q10 75 mg capsule (Ultra CoQ10) 75 mg PO DAILY SUPPLEMENT 12/31/20 albuterol sulfate 2.5 mg/3 mL (0.083 %) solution for nebulization 2.5 mg (3 mL) inhalation Q4H PRN WHEEZING #25 vials 05/28/22 multivitamin (Daily Multi-Vitamin tablet) 1 tab PO DAILY SUPPLEMENT 04/26/23 lisinopril 40 mg tablet 40 mg PO DAILY BP 01/21/24 lidocaine 5 % topical patch patch topical .QD PAIN 08/21/24 acetaminophen 500 mg tablet 500 mg PO Q6H #30 tabs 10/08/24 methocarbamol 500 mg tablet 750 mg (1.5 x 500 mg) PO TID PRN pain/spasms #60 tabs 10/08/24 oxycodone 5 mg tablet 2.5 - 5 mg (0.5 - 1 x 5 mg) PO Q6H PRN pain 7 days #28 tabs 10/08/24 sennosides 8.6 mg-docusate sodium 50 mg tablet (Stimulant Laxative Plus) 2 tab PO BID PRN constipation #30 tabs 10/08/24
--- NOTE | 2024-10-09 10:25 | CASEMGMT ---
Addendum entered by Sophia Perez 10/09/24 12:12: Pt nurse updated that pt states her friend now is going to transport her home. Requested national secretary cancel transport that was set up. Addendum entered by Sophia Perez 10/09/24 11:56: Dr. Alcala on floor at this time. Requested national secretary arrange for pt transportation home. Addendum entered by Sophia Perez 10/09/24 11:31: EDGAR MELCHOR into pt room, pt aware that [facility] can take her home with the cost of $104.50 and $10/mile. Pt is agreeable to this and states she will pay with her cc. Pt nurse states pt can dc at any point. Message to Dr. Alcala to confirm he did not need to see pt before she leaves today. Will await response. Original Note: EDGAR MELCHOR into pt room, pt has a dc order placed. Pt states she will not be able to get into her home as the distance is great and hilly. Pt states her sister just had back surgery and cannot assist her. Explored options for pt to get into the home and pt did not feel these were acceptable. Pt requests the cost to have her be sent home in a w/c van. Pt to use restroom, EDGAR MELCHOR to come back and see pt after.
--- NOTE | 2024-10-09 14:59 | CHAPLAIN ---
Type of Pastoral Visit _x__ Initial Visit ___ Follow-up Visit ___ On-call Visit ___ General Patient Visit ___ Spiritual Assessment ___ Family Conference ___ Bereavement ___ Rapid Response ___ Code Blue ___ Other (describe below) Pastoral Care Referral From _x__ Patient ___ Family ___ Nurse ___ Physician ___ Wet Mixer ___ Vacuum Cleaner Operator ___ Other (describe below) Sacrament/Intervention _x__ Active listening ___ Anointing ___ Jehovah'S Witness ___ Bereavement ___ Communion _x__ Maylin exploration ___ _x__ Life review _x__ Prayer ___ Reconciliation ___ Sacrament of Sick _x__ Supportive presence ___ Wedding ___ Other (describe below) Pastoral Comments patient is very expressive and gives details of how God has been answering her prayers this morning with good news and great support from her maylin community; pt gives some life review and states how thankful she is to God for the change that has happened in her; pt expresses thanks for the spiritual care visit and prayer; pt is tearful at times with glory
== END 2024-10-09 15:30 | disposition home or self-care (01) | DRG 402 ==
LOC: MS3 10-08 06:55
PROVIDERS: Anesthesiology; Internal Medicine; Student in an Organized Health Care Education/Training Program; Admitting Provider Orthopaedic Surgery Orthopaedic Surgery of the Spine; PCP Family Medicine; Referring Provider Orthopaedic Surgery Orthopaedic Surgery of the Spine; Visit Provider Orthopaedic Surgery Orthopaedic Surgery of the Spine
PROC: 0SG00A0 Fusion of Lumbar Vertebral Joint with Interbody Fusion Device, Anterior Approach, Anterior Column, Open Approach (ICD-10-PCS; principal; 2024-10-07 07:00)
DX: M48.062 Spinal stenosis, lumbar region with neurogenic claudication (principal); Z68.41 Body mass index [BMI] 40.0-44.9, adult; E66.01 Morbid (severe) obesity due to excess calories; I10 Essential (primary) hypertension; J45.909 Unspecified asthma, uncomplicated; M43.16 Spondylolisthesis, lumbar region; M16.12 Unilateral primary osteoarthritis, left hip; Z87.891 Personal history of nicotine dependence; Z86.16 Personal history of COVID-19; Z90.710 Acquired absence of both cervix and uterus; Z88.6 Allergy status to analgesic agent; Z88.1 Allergy status to other antibiotic agents; Z88.8 Allergy status to other drugs, medicaments and biological substances; Z79.899 Other long term (current) drug therapy; Z79.51 Long term (current) use of inhaled steroids
CPT/HCPCS: 36415; 72100; 76000; 80048; 82962; 83735; 85018; 85027; 86703; 86706; 86708; 86803; 86850; 86900; 86901; 87081; 94668; 97162; 97166; 97530; 97535; 99406; C1713; A4216; J2405

== ENCOUNTER 2024-11-26 14:30 | Emergency (ER) | payer MEDICARE, SELFPAY ==
[2024-11-26] VITALS (7 sets, daily range): BP systolic 119–160; BP diastolic 61–91; PULSE 76–141; RESP 14–25; TEMP 36.6; O2SAT 97–100; BMI 41.3
--- NOTE | 2024-11-26 15:13 | EX.ED.DYSGE1 ---
HPI History of Present Illness Chief Complaint: Syncope Informant: patient Onset/Context/Timing Onset: Today Context: Sudden Onset Timing: Intermittent Quality: Sweaty, lightheaded Location: Generalized Worsened by: Nothing Relieved by: Nothing Narrative Narrative: Patient presents with a syncopal episode that occurred today. Patient states she has similar episode prior to her back surgery at the beginning of September. Patient states she got nauseated then broke out into a sweat. Patient states she felt dizzy and lightheaded. Patient states she has not passed out. Patient states her friend was with her and caught her. Patient states this occurred while they were at a restaurant. Patient states she was getting ready to order but has not eaten yet. Patient denies any palpitations. Patient denies any chest pain or shortness of breath. Patient states she had recent lab work drawn which was normal except for an elevated calcium. Patient states nothing makes her symptoms better and nothing makes them worse. Patient states she took a tramadol tablet prior to leaving for the restaurant. Patient states that this felt similar to her previous syncopal episode except that this felt like it was something worse. [facility] Medical History Alcohol use Substance abuse Loss of consciousness Wears dentures Wears glasses Walker as ambulation aid Arthritis Injury of head and neck GERD (gastroesophageal reflux disease) Former smoker Facet arthritis of lumbar region Degenerative spondylolisthesis COVID-19 vaccine series completed History of COVID-19 Asthma HTN (hypertension) Home Medications ?Medication ?Instructions ?Recorded ?Last Taken ?Type B-complex with vitamin C 1 cap PO DAILY SUPPLEMENT 12/31/20 10/06/24 04:30 History cholecalciferol (vitamin D3) 50 50 mcg PO DAILY SUPPLEMENT 12/31/20 10/06/24 04:30 History mcg (2,000 unit) capsule coenzyme Q10 75 mg capsule (Ultra 75 mg PO DAILY SUPPLEMENT 12/31/20 10/06/24 04:30 History CoQ10) albuterol sulfate 2.5 mg/3 mL 2.5 mg (3 mL) inhalation Q4H PRN 05/28/22 10/06/24 Rx (0.083 %) solution for nebulization WHEEZING #25 vials multivitamin (Daily Multi-Vitamin 1 tab PO DAILY SUPPLEMENT 04/26/23 10/06/24 04:30 History tablet) lisinopril 40 mg tablet 40 mg PO DAILY BP 01/21/24 10/05/24 History lidocaine 5 % topical patch patch topical .QD PAIN 08/21/24 Unknown History acetaminophen 500 mg tablet 500 mg PO Q6H #30 tabs 10/08/24 Unknown Rx sennosides 8.6 mg-docusate sodium 2 tab PO BID PRN constipation #30 10/08/24 Unknown Rx 50 mg tablet (Stimulant Laxative tabs Plus) Allergy/AdvReac Type Severity Reaction Status Date / Time aspirin Allergy Intermediate Rash, Verified 11/26/24 14:35 rhinitis, trouble breathing cat dander Allergy Intermediate Rash, Verified 11/26/24 14:35 rhinitis, trouble breathing horse dander Allergy Intermediate Rash, Verified 11/26/24 14:35 rhinitis, trouble breathing ragweed pollen Allergy Intermediate Rash, Verified 11/26/24 14:35 rhinitis, trouble breathing Penicillins Allergy Rash Verified 11/26/24 14:35 vaccine adjuvant system, Allergy Anaphylaxis Verified 11/26/24 14:35 [id number] liposomal (From Shingrix (PF)) varicella-zoster virus Allergy Anaphylaxis Verified 11/26/24 14:35 glycoprotein E, recombinant (From Shingrix (PF)) celecoxib (From Celebrex) AdvReac Vomiting Verified 11/26/24 14:35 Surgical History History of cardiac radiofrequency ablation Hx of kidney removal Hx of hysterectomy H/O shoulder surgery H/O knee surgery Social History household members: none housing: house pets and animals: No Smoking Status: Former smoker pack-years: 15 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 caffeine: Yes what type of physical activity do you participate in: none sandy/episcopal: Muslim seatbelt use: always do you feel safe at home: Yes ROS ROS ED Constitutional Constitutional ED: Reports sweats; Denies chills or fever(s) Eyes Eyes: Denies blurry vision or change in vision ENT ENT ED: Denies rhinorrhea or sore throat Cardiovascular Cardiovascular: Reports palpitations; Denies chest pain Respiratory/Chest Respiratory/Chest: Denies cough or dyspnea Gastrointestinal Gastrointestinal: Reports nausea; Denies vomiting Genitourinary Genitourinary ED: Denies dysuria or hematuria Musculoskeletal Musculoskeletal: Reports back pain; Denies neck pain Integumentary Denies abscess or rash Neurologic Neurologic: Denies headache(s) or weakness Allergic/Immunologic Allergic/Immunologic ED: Denies mouth swelling or urticaria EXAM Physical Exam Const Vital Signs: 11/26/24 14:31 11/26/24 15:07 11/26/24 15:07 Temperature 97.8 F Temperature Source Temporal Pulse Rate 141 H 78 Pulse Rate [Lying] Pulse Rate [Sitting (for 1 minute prior to obtaining)] Pulse Rate [Standing (for 1 minute prior to obtaining)] Respiratory Rate 19 H 20 H Respiratory Effort Normal Respiratory Pattern Tachypnea Blood Pressure 119/85 H 130/66 H Blood Pressure [Lying] Blood Pressure [Sitting (for 1 minute prior to obtaining)] Blood Pressure [Standing (for 1 minute prior to obtaining)] Blood Pressure Mean 96 87 Blood Pressure Mean [Lying] Blood Pressure Mean [Sitting (for 1 minute prior to obtaining)] Blood Pressure Mean [Standing (for 1 minute prior to obtaining)] Pulse Ox 98 99 Oxygen Delivery Method Room Air Room Air 11/26/24 16:00 11/26/24 16:36 11/26/24 17:00 Temperature Temperature Source Pulse Rate 76 86 Pulse Rate [Lying] 78 Pulse Rate [Sitting (for 1 minute prior to obtaining)] 80 Pulse Rate [Standing (for 1 minute prior to obtaining)] 99 Respiratory Rate 14 17 Respiratory Effort Respiratory Pattern Blood Pressure 140/85 H 153/75 H Blood Pressure [Lying] 153/71 H Blood Pressure [Sitting (for 1 minute prior to obtaining)] 158/91 H Blood Pressure [Standing (for 1 minute prior to obtaining)] 160/91 H Blood Pressure Mean 103 101 Blood Pressure Mean [Lying] 98 Blood Pressure Mean [Sitting (for 1 minute prior to obtaining)] 113 Blood Pressure Mean [Standing (for 1 minute prior to obtaining)] 114 Pulse Ox 100 99 Oxygen Delivery Method Room Air Room Air 11/26/24 18:00 Temperature Temperature Source Pulse Rate 88 Pulse Rate [Lying] Pulse Rate [Sitting (for 1 minute prior to obtaining)] Pulse Rate [Standing (for 1 minute prior to obtaining)] Respiratory Rate 18 Respiratory Effort Respiratory Pattern Blood Pressure 139/61 H Blood Pressure [Lying] Blood Pressure [Sitting (for 1 minute prior to obtaining)] Blood Pressure [Standing (for 1 minute prior to obtaining)] Blood Pressure Mean 87 Blood Pressure Mean [Lying] Blood Pressure Mean [Sitting (for 1 minute prior to obtaining)] Blood Pressure Mean [Standing (for 1 minute prior to obtaining)] Pulse Ox 99 Oxygen Delivery Method Room Air Positive well nourished and well developed General Appearance ED: well developed and NAD HEENT Reports moist mucous membranes Neck supple and no JVD Resp normal respiratory effort and clear to auscultation bilaterally Cardio regular rate and regular rhythm GI non-tender and non-distended Palpation: soft Extremity normal to inspection General Extremety ED: Negative for edema or tenderness General Extremity: Negative for edema Neuro oriented x3, CN's II-XII intact bilaterally and no sensory deficits noted Sensorium / Orientation: alert Motor Exam: strength 5/5 throughout Psych mental status grossly normal Skin no rashes or lesions noted MDM MDM MDM Narrative Medical decision making narrative: Differential diagnosis includes vasovagal syncope, hypoglycemia, electrolyte abnormality, dehydration, cardiac dysrhythmia, cardiac ischemia, pulmonary embolism, medication side effect, and urinary tract infection. EKG will be obtained to assess for cardiac dysrhythmia and cardiac ischemia. Chest x-ray will be obtained to assess for pneumonia and bronchitis. CBC will be obtained to assess for leukocytosis and anemia. Basic metabolic profile will be obtained to assess for electrolyte abnormality renal function. High-sensitivity troponin will be obtained to assess for cardiac ischemia. 2-hour repeat high-sensitivity troponin will be obtained to assess for ongoing cardiac ischemia. D-dimer will be obtained to assess for pulmonary embolism. Orthostatic vital signs will be obtained to assess for hypovolemia and dehydration. History & Record Review Additional record(s) reviewed:: Prior inpatient record, Prior outpatient record, Prior ED visit and Prior labs Lab Data Attestation: I reviewed the patient's lab results. Lab results narrative: CBC was reviewed and was within normal limits. Basic metabolic profile was reviewed and was within normal limits. D-dimer was reviewed and was normal. High-sensitivity troponin was reviewed and was normal at 9. 2-hour repeat high-sensitivity troponin was reviewed and was normal at 8. Urinalysis was reviewed. There is no evidence of urinary tract infection or hematuria. Labs: Laboratory Results - last 24 hr 11/26/24 11/26/24 11/26/24 15:30 16:55 17:30 WBC 9.9 RBC 4.28 Hgb 12.9 Hct 39.0 MCV 91.1 MCH 30.1 MCHC 33.1 RDW Std Deviation 42.8 RDW Coeff of Jassi 12.9 Plt Count 331 MPV 10.2 Immature Gran % (Auto) 0.500 Neut % (Auto) 66.6 Lymph % (Auto) 25.2 Mobile % (Auto) 6.2 Eos % (Auto) 1.1 Baso % (Auto) 0.4 Absolute Neuts (auto) 6.6 Absolute Lymphs (auto) 2.49 Nucleated RBC % 0 D-Dimer Quant (PE/DVT) 0.46 Sodium 134 Potassium 4.5 Chloride 99 Carbon Dioxide 23.6 Anion Gap 12 BUN 19 Creatinine 0.93 Estim Creat Clear Calc 73.80 Est GFR (MDRD) Non-Af 69 BUN/Creatinine Ratio 20.0 Glucose 103 H Calcium 10.2 Troponin T High Sens 9 D Troponin T Hi Sens 2 Hr 8 Urine Color Straw Urine Clarity Clear Urine pH 6.0 Ur Specific [place] 1.015 Urine Protein 30 H Urine Glucose (UA) Normal Urine Ketones Negative Urine Occult Blood Negative Urine Nitrite Negative Urine Bilirubin Negative Urine Urobilinogen Normal Ur Leukocyte Esterase Negative Radiography Chest X-Ray - ED: 2 View, Read by ED Physician, Read by Radiologist and - (Left lower lobe atelectasis versus infiltrate) Diagnostic Testing: Clinical Impression(s) from Imaging Studies Chest X-Ray 11/26/24 16:08 IMPRESSION: Left lower lobe opacity may reflect pneumonia, aspiration, and/or atelectasis. Reading Location: [facility] PA and lateral chest x-ray was obtained. There are 2 views. On my independent interpretation, lung smalls with atelectasis versus infiltrate in the left lower lobe. There is normal cardiac silhouette. Bony thorax is normal. There is no acute process noted. Radiologist also interpreted the x-ray and agrees. Since the patient not have a fever or cough, I do not feel that the opacity is infiltrate. It is more likely that it is atelectasis. EKG Initial EKG: Attestation: I personally reviewed and interpreted this EKG as follows: Interpretation: Sinus Rhythm (With frequent PVCs with a rate of 78) and No Acute Injury Pattern Comments: EKG was obtained. On my independent interpretation, it showed a normal sinus rhythm with frequent PVCs with a rate of 78. CA interval, QRS interval, and QTc intervals were all normal. [place] was normal. There are no acute ST or T wave changes. Prior EKG tracings: available for review Prior: Unchanged (Other than the frequent PVCs, there is no change compared to previous EKG dated 08/20/2024) Treatment and Re-Evaluation :: Patient is feeling better on reevaluation. The patient was advised of her findings. Since this is her second episode in a couple months, I did recommend following up with her primary care physician for further evaluation. Currently, patient is low risk for recurrent syncope according to [place] syncope criteria and [place] syncope criteria. Patient understands and is agreeable with the plan. All questions were answered. Discharge Plan Triage Chief Complaint: Syncope ED Provider: Lenin Mccloud Dx/Rx/DC Orders Clinical Impression: Syncope and collapse, HTN (hypertension) Instructions: ED Fainting, Uncertain Cause Prescriptions: No Action Ultra CoQ10 75 mg capsule 75 mg PO DAILY B-complex with vitamin C Capsule 1 cap PO DAILY cholecalciferol (vitamin D3) 50 mcg (2,000 unit) capsule 50 mcg PO DAILY lisinopril 40 mg tablet 40 mg PO DAILY Patient Comments: [NO ORIGINAL SIG] albuterol sulfate 2.5 mg /3 mL (0.083 %) solution for nebulization 2.5 mg inhalation Q4H PRN Qty: 25 0RF Rx Instructions: Use q4 hours and PRN for wheezing multivitamin [Daily Multi-Vitamin] Tablet 1 tab PO DAILY lidocaine 5 % adhesive patch,medicated topical .QD Rx Instructions: 12 HOURS ON / 12 HOURS OFF acetaminophen 500 mg Tablet 500 mg PO Q6H Qty: 30 0RF sennosides-docusate sodium [Stimulant Laxative Plus] 8.6-50 mg Tablet 2 tab PO BID PRN (Reason: constipation) Qty: 30 0RF Primary Care Provider: Freeman Zamudio Referrals: Freeman Zamudio MD [Primary Care Provider] - 5-7 Days Print Language: Hungarian Disposition Disposition: Home, Self Care
--- NOTE | 2024-11-26 15:36 | EKG12_ITS ---
Test Reason : Blood Pressure : */* mmHG Vent. Rate : 78 BPM Atrial Rate : 78 BPM P-R Int : 172 ms QRS Dur : 88 ms QT Int : 412 ms P-R-T Axes : 41 7 54 degrees QTcB Int : 469 ms Sinus rhythm with frequent Premature ventricular complexes Otherwise normal ECG Confirmed by Bart Andrews ([id number]), editor department EDOUARD VANESSA ([id number]) on 11/27/2024 10:16:05 AM Referred By: Lenin Mccloud Confirmed By: Bart Andrews
--- NOTE | 2024-11-26 16:08 | RAD_ITS ---
PROCEDURE: CHEST PA AND LATERAL 11/26/2024 REASON FOR EXAM: SYNCOPE TECHNIQUE: Frontal and lateral views of the chest. COMPARISON: 08/20/2024 FINDINGS: Left lower lobe opacity may reflect pneumonia, aspiration, and/or atelectasis. Underlying bibasilar subsegmental atelectasis. No pleural effusion or pneumothorax. Cardiac silhouette is unchanged. Bilateral shoulder prosthesis. RAD/Chest PA and Lateral IMPRESSION: Left lower lobe opacity may reflect pneumonia, aspiration, and/or atelectasis. Reading Location: [id number]
[2024-11-26 16:16] LABS: Absolute Lymphocyte Count 2.49 X10^3/uL (0.83-4.51); Absolute Neutrophil Count 6.6 X10^3/uL (2.0-7.7); Basophil# 0.04 X10^3/uL; Basophil% 0.4 % (0-1); Eosinophil# 0.11 X10^3/uL; Eosinophils% 1.1 % (0-5); Hemoglobin 12.9 g/dL (12.0-15.0); Lymphocyte # 2.49 X10^3/ul (0.83-4.51); Lymphocyte % 25.2 % (19-41); Mean Corp Hgb Conc 33.1 g/dL (32-36); Mean Corpuscular Hgb 30.1 pg (27.0-32.0); Mean Corpuscular Volume 91.1 fL (81-99); Mean Platelet Vol. 10.2 fl (6.2-12.0); Monocyte# 0.61 X10^3/uL; Monocyte% 6.2 % (0-10); NRBC Flagged by Analyzer 0 % (0-5); Neutrophil # 6.57 X10^3/uL (2.7-7.7); Neutrophil % 66.6 % (47-70); Platelet Count 331 K/mm3 (150-450); RBC Distribution Width CV 12.9 % (11.6-14.6); RBC Distribution Width SD 42.8 fl (35.1-43.9); Red Blood Count 4.28 M/mm3 (4.2-5.4); White Blood Count 9.9 K/mm3 (4.4-11.0)
[2024-11-26 16:22] LABS: D-Dimer Quantitative (DVT/PE) 0.46 FEU/ug/m (0.27-0.49)
[2024-11-26 16:35] LABS: Anion Gap 12 (5-15); BUN 19 mg/dL (4-19); Calcium,Total 10.2 mg/dL (7.6-11.0); Carbon Dioxide 23.6 mmol/L (21.0-32.0); Chloride 99 mmol/L (98-108); Creatinine, Serum 0.93 mg/dL (0.70-1.20); EST Glomerular Filtration Rate 69 (>60); Glucose 103 mg/dL (70-99); Potassium 4.5 mmol/L (3.3-5.1); Sodium Level 134 mmol/L (133-145)
[2024-11-26 17:05] LABS: Bacteria 0 SEEN /hpf (None Seen); Mucous, Urine 0 SEEN /hpf (<or=2+); Red Blood Cells-Urine 0 SEEN /hpf (0-5); Squamous Epithelial Cells - UA 0 SEEN /hpf (5-10); White Blood Cells 0 SEEN /hpf (0-5)
[2024-11-26 17:16] LABS: Troponin T High Sensitivity 9 ng/L (<=14)
[2024-11-26 17:56] LABS: Troponin T High Sens 2 HR 8 ng/L (<=14)
[2024-11-26 18:37] LABS: Color, Urine Straw (Yellow); Glucose, Dipstick Normal (Normal); Ketone-Dipstick Negative (Negative); Leukocyte Esterase-Dipstick Negative /ul (Negative); Nitrite-Dipstick Negative (Negative); Occult Blood-Urine Negative /ul (Negative); Protein-Dipstick 30 mg/dl (Negative); Specific Gravity, Urine 1.015 (1.002-1.030); Urine Bilirubin Dipstick Negative (Negative); Urine Clarity Clear (Clear); Urine Urobilinogen Normal (Normal)
== END 2024-11-26 19:20 | disposition home or self-care (01) ==
PROVIDERS: Emergency Provider Emergency Medicine; PCP Family Medicine; Referring Provider Emergency Medicine; Visit Provider Emergency Medicine
DX: R55 Syncope and collapse (principal); I10 Essential (primary) hypertension; Z79.899 Other long term (current) drug therapy; Z86.16 Personal history of COVID-19; Z87.891 Personal history of nicotine dependence
CPT/HCPCS: 71046; 80048; 81001; 84484; 85025; 85379; 93005; 99285; A4216

== ENCOUNTER → 2025-01-14 | Outpatient (CLI) | payer MEDICARE, SELFPAY ==
[2025-01-14 18:17] LABS: Barbiturate Urine NEGATIVE (< 200 ng/mL); Benzodiazepine Urine NEGATIVE (< 200 ng/mL); PCP Urine NEGATIVE (< 25 ng/mL); THC Urine NEGATIVE (< 50 ng/mL)
== END | disposition home or self-care (01) ==
LOC: LABSPEC 17:44
PROVIDERS: PCP Family Medicine; Visit Provider Anesthesiology Pain Medicine
DX: F11.20 Opioid dependence, uncomplicated (principal)
CPT/HCPCS: 80307

== ENCOUNTER → 2025-01-14 | Outpatient (CLI) | payer MEDICARE, SELFPAY | END | disposition home or self-care (01) | LOC: LAB 17:39 | PROVIDERS: PCP Family Medicine; Referring Provider Anesthesiology Pain Medicine; Visit Provider Anesthesiology Pain Medicine | DX: F11.20 Opioid dependence, uncomplicated (principal) ==

== ENCOUNTER 2025-01-15 14:00 | Outpatient (RCR) | payer MEDICARE, SELFPAY ==
--- NOTE | 2024-11-03 09:11 | HP.PTEVAL ---
Patient's Visit Information Visit Information Visit Information: AURORA SAWYER is a 64 year old F referred to Physical Therapy by Dr. Raleigh Alcala MD with a diagnosis of Lumbar Fusion October 07, 2024. Date of Evaluation: 11/03/24 Physical Therapist: Jessie Davis DPT Visit Plan Frequency: 2-3x /Week Duration: 4 Weeks Plan: Lumbar Fusion October 07, 2024- Focus on jain of normalized gait and balance- equalization of strength bilateral. Core strength/stabilization. *Maintain neutral spine. HEP Given IE: TA Contraction, standing HR/TR, SLS, LAQ without weight for endurance, sit to stands Subjective Subjective: Patient reports that she had back surgery October 07, [address] Alcala Lumbar Fusion. Prior to surgery-she felt like she had a brick in the back of her left leg, she could not sit- so most of the time she laid on her right side- she had been going for injections and it finally got to the point where she needed to have the surgery. Since surgery she feels that she is getting better. She feels that she is 60% better. Pain at its worst in the last week: 8/10 Agg: overdoing it. She is not going on walks by herself or back to her normal ADL's. Best: 4/10 Eases: ice, laying down on her side. The pain is now in the incision side. No pain radiating down her legs. Does have some N/T in her left leg. Prior to surgery she had no feeling in her right leg from the knee down. No pain in her left leg. Prior to her back pain she was an avid walker without AD- she is now using a FWW and a rollator. Goals: get back to walking without an assistive device, yard work. She knows her precautions- no bending, lifting, twisting. Sleep: not disturbed- side sleeper. PMHx/Meds: no changes since saw . She needs a left TKR. Objective Objective: Posture: forward head, rounded shoulders- guarded posture Incision: healing well no s/s of infection Gait: forward wheeled walker- decreased step length and stance time on the left lower extremity. HR/TR: able bilateral with UE A SLS: Right: able to lift left leg with bilateral UE A from wall, Left: weight shift only reports that her left leg will buckle Sensation: WNL to gross touch bilateral ROM: Lumbar: hands to knees, Extn: neutral, SB: decreased by 50%, Rot: not tested- all with increased discomfort- LE: WNL in all planes Flex: HS: moderate, Gastroc: moderate Strength: Core: poor, Ankle: DF: Left: 22 Right: 26 PF: Left: 36 Right: 36 Knee: Extn: Left: 30.5 Right: 58 Flexion: Left: 12 Right: 27 Hip: Left: 19 Right: 18 Abd: Left: 26 Right: 28 Add: Left:23 and Right: 21 Ext: Left: 15 Right: 19 Sit to Stand: able without UE A with slight weight shift to the right. Balance/Special Test Scores Oswestry Low Back Score: 15 Goals Goal 1:: Patient will be I with HEP and progression Goal Time Frame: 4-6 Weeks Goal 2:: Patient will ambulate >150 feet without AD and normalized gait pattern Goal Time Frame: 4-6 Weeks Goal 3:: Patient will demo equal strength bilateral LE Goal Time Frame: 4-6 Weeks Goal 4:: Patient will report 80% improvement Goal Time Frame: 4-6 Weeks Rehabilitation Potential Physical Therapy Diagnosis: Patient presents s/p Lumbar Fusion- she has decreased LE and core strength/stabilization, flex, proprioception and muscular endurance leading to abnormal gait pattern and decreased ability to perform ADL's. Rehabilitation Potential: Good Anticipated Interventions Patient/Client Instruction: Educate patient on: Benefits of Fitness Program Therapeutic Exercise to Include: Strength training, Power training, Balance training, Coordination, Body mechanics, Postural training, Flexibilty training, Gait and locomotor training, Neuromotor development, Passive ROM, Active ROM, Dynamic Lumbar Stabilization and Scapular Strength/Stabilization For the Purpose of:: To improve muscle performance and motor function TENS: Yes Cryotherapy (ice pack, ice massage): Yes Thermo therapy (hot pack): Yes Ultrasound (thermal/non thermal): No For the Purpose of:: To decrease pain Text: Thank you for the opportunity to evaluate your patient. For Medicare and Medicare HMO plans, please review the plan of care and approve it. It will need to be FAXED BACK to us at [phone] for Medicare purposes. For Medicare only, by signing this I certify the plan of care. Please let me know if there are questions or concerns regarding this plan of care. Physician Signature: Date:
--- NOTE | 2024-12-10 13:22 | HP.PTREVAL_ITS ---
Re-Evaluation Intro: Dr. Raleigh Alcala MD, It has been my pleasure to treat AURORA SAWYER over the last 7 visits for Lumbar Fusion October 07, 2024. Please see the progress note below for an update on the physical therapy plan of care! Subjective Subjective: Patient reports that she feels that she is coming along- everyday is better. The pain is moving to the hips. Worst:11/25- she tried to pull weeds. She feels that she is 50% back to where she wants to be. She took her first long walk yesterday- she used her walker but she is very happy. She is wearing a heart monitor. She feels that she would like to continue therapy. She does not feel confident on stairs yet- and getting that leg up into the jeep is still hard. Objective Objective/Function: Posture: forward head, rounded shoulders- guarded posture Gait: forward wheeled walker- decreased step length and stance time on the left lower extremity. Stairs: up and down sideways. HR/TR: able bilateral with UE A SLS: Able to lift both LE with hands on wall without buckling of other LE Sensation: WNL to gross touch bilateral ROM: Lumbar: hands to knees, Extn: neutral, SB: decreased by 50%, Rot: not tested- all with increased discomfort- LE: WNL in all planes Flex: HS: moderate, Gastroc: moderate Strength: Core: poor, Ankle: DF: Left: 33 Right: 43 PF: Left: 40 Right: 36 Knee: Extn: Left: 31 Right: 62 Flexion: Left: 16 Right: 18 Hip: Flexion: Left: 20 Right: 22 Abd: Left: 26 Right: 30 Add: Left:23 and Right: 22 Ext: Left: 26 Right: 27 Sit to Stand: able without UE A with slight weight shift to the right. Plan Plan Plan: 12/10/2024: Continue PT 2-3x a week for 6 weeks to focus on functional mobility. IE: Lumbar Fusion October 07, 2024- Focus on mandaeism of normalized gait and balance- equalization of strength bilateral. Core strength/stabilization. *Maintain neutral spine. Balance/Gait/Functional tests Balance/Special Test Scores Oswestry Low Back Score: 8 Goals Goals Goal 1:: Patient will be I with HEP and progression Goal Time Frame: 4-6 Weeks Goal Progress: Progressing Goal 2:: Patient will ambulate >150 feet without AD and normalized gait pattern Goal Time Frame: 4-6 Weeks Goal Progress: Progressing Goal 3:: Patient will demo equal strength bilateral LE Goal Time Frame: 4-6 Weeks Goal Progress: Progressing Goal 4:: Patient will report 80% improvement Goal Time Frame: 4-6 Weeks Goal Progress: Progressing Anticipated Interventions Anticipated Interventions Patient/Client Instruction: Educate patient on: Benefits of Fitness Program Therapeutic Exercise to Include: Strength training, Power training, Balance training, Coordination, Body mechanics, Postural training, Flexibilty training, Gait and locomotor training, Neuromotor development, Passive ROM, Active ROM, Dynamic Lumbar Stabilization and Scapular Strength/Stabilization For the Purpose of:: To improve muscle performance and motor function TENS: Yes Cryotherapy (ice pack, ice massage): Yes Thermo therapy (hot pack): Yes Ultrasound (thermal/non thermal): No For the Purpose of:: To decrease pain Re-Evaluation Ending Re-evaluation ending: Please do not hesitate to contact me at [phone] by phone or if you have questions or concerns regarding this new plan of care! Sincerely, Jessie Davis DPT
--- NOTE | 2024-12-10 13:24 | HP.PTEVAL_ITS ---
Patient's Visit Information Visit Information Visit Information: AURORA SAWYER is a 64 year old F referred to Physical Therapy by Dr. Raleigh Alcala MD with a diagnosis of Lumbar Fusion October 07, 2024. Date of Evaluation: 11/03/24 Physical Therapist: Jessie Davis DPT Visit Plan Frequency: 2-3x /Week Duration: 4 Weeks Plan: 12/10/2024: Continue PT 2-3x a week for 6 weeks to focus on functional m obility. IE: Lumbar Fusion October 07, 2024- Focus on jainism of normalized gait and balance- equalization of strength bilateral. Core strength/stabilization. *Maintain neutral spine. Subjective Subjective: Patient reports that she had back surgery October 07, [address] Alcala Lumbar Fusion. Prior to surgery-she felt like she had a brick in the back of her left leg, she could not sit- so most of the time she laid on her right side- she had been going for injections and it finally got to the point where she needed to have the surgery. Since surgery she feels that she is getting better. She feels that she is 60% better. Pain at its worst in the last week: 8/10 Agg: overdoing it. She is not going on walks by herself or back to her normal ADL's. Best: 4/10 Eases: ice, laying down on her side. The pain is now in the incision side. No pain radiating down her legs. Does have some N/T in her left leg. Prior to surgery she had no feeling in her right leg from the knee down. No pain in her left leg. Prior to her back pain she was an avid walker without AD- she is now using a FWW and a rollator. Goals: get back to walking without an assistive device, yard work. She knows her precautions- no bending, lifting, twisting. Sleep: not disturbed- side sleeper. PMHx/Meds: no changes since saw . She needs a left TKR. Pain Back: Pain Intensity (Out of 10): 5 Comment: bilateral hips Knee: Pain Intensity (Out of 10): 3 Comment: Left Objective Objective: Posture: forward head, rounded shoulders- guarded posture Incision: healing well no s/s of infection Gait: forward wheeled walker- decreased step length and stance time on the left lower extremity. HR/TR: able bilateral with UE A SLS: Right: able to lift left leg with bilateral UE A from wall, Left: weight shift only reports that her left leg will buckle Sensation: WNL to gross touch bilateral ROM: Lumbar: hands to knees, Extn: neutral, SB: decreased by 50%, Rot: not tested- all with increased discomfort- LE: WNL in all planes Flex: HS: moderate, Gastroc: moderate Strength: Core: poor, Ankle: DF: Left: 22 Right: 26 PF: Left: 36 Right: 36 Knee: Extn: Left: 30.5 Right: 58 Flexion: Left: 12 Right: 27 Hip: Left: 19 Right: 18 Abd: Left: 26 Right: 28 Add: Left:23 and Right: 21 Ext: Left: 15 Right: 19 Sit to Stand: able without UE A with slight weight shift to the right. Balance/Special Test Scores Oswestry Low Back Score: 8 Goals Goal 1:: Patient will be I with HEP and progression Goal Time Frame: 4-6 Weeks Goal 2:: Patient will ambulate >150 feet without AD and normalized gait pattern Goal Time Frame: 4-6 Weeks Goal 3:: Patient will demo equal strength bilateral LE Goal Time Frame: 4-6 Weeks Goal 4:: Patient will report 80% improvement Goal Time Frame: 4-6 Weeks Rehabilitation Potential Physical Therapy Diagnosis: Patient presents s/p Lumbar Fusion- she has decreased LE and core strength/stabilization, flex, proprioception and muscular endurance leading to abnormal gait pattern and decreased ability to perform ADL's. Rehabilitation Potential: Good Anticipated Interventions Patient/Client Instruction: Educate patient on: Benefits of Fitness Program Therapeutic Exercise to Include: Strength training, Power training, Balance training, Coordination, Body mechanics, Postural training, Flexibilty training, Gait and locomotor training, Neuromotor development, Passive ROM, Active ROM, Dynamic Lumbar Stabilization and Scapular Strength/Stabilization For the Purpose of:: To improve muscle performance and motor function TENS: Yes Cryotherapy (ice pack, ice massage): Yes Thermo therapy (hot pack): Yes Ultrasound (thermal/non thermal): No For the Purpose of:: To decrease pain Text: Thank you for the opportunity to evaluate your patient. For Medicare and Medicare HMO plans, please review the plan of care and approve it. It will need to be FAXED BACK to us at [phone] for Medicare purposes. For Medicare only, by signing this I certify the plan of care. Please let me know if there are questions or concerns regarding this plan of care. Physician Signatur e: Date:
--- NOTE | 2025-01-15 14:58 | HP.PTDCSUM ---
Discharge Summary D/C summary: It has been my pleasure to treat AURORA SAWYER referred by Dr. Raleigh Alcala MD, with the diagnosis of Lumbar Fusion October 07, 2024 for a total of 13 visit(s). Discharge Date: Please see the following information for a summary of their discharge status. Subjective Subjective: She goes back to [facility] in Feb for possible TKR- the left. The back is getting a lot better- she sees progress daily. She can get out of bed much easier- she has pain in her knee more than her back. Pain Back: Pain Intensity (Out of 10): 0 Knee: Pain Intensity (Out of 10): 0 Overall Improvement % Improvement: 90 Objective Objective/Function: Indep with home exercise program, strength is equal bilateral but is limited by her knee more than her lumbar spine. Goals Goal 1:: Patient will be I with HEP and progression Goal Progress: Goal Met Goal 2:: Patient will ambulate >150 feet without AD and normalized gait pattern Goal Progress: Goal Met Goal 3:: Patient will demo equal strength bilateral LE Goal Progress: Goal Met Goal 4:: Patient will report 80% improvement Goal Progress: Goal Met Plan Plan: Appropriate to be d/c at this time D/C Information d/c sentence: If there are questions or concerns regarding this patient's physical therapy, please feel free to call me at [phone]. Thank you for the referral of this patient. Sincerely, Jessie Davis, DPT Balance/Gait/Functional tests Balance/Special Test Scores Oswestry Low Back Score: 4 Improvement % Improvement: 90
== END 2025-01-15 19:00 | disposition home or self-care (01) ==
LOC: PT 14:00
PROVIDERS: PCP Family Medicine; Referring Provider Orthopaedic Surgery Orthopaedic Surgery of the Spine; Visit Provider Orthopaedic Surgery Orthopaedic Surgery of the Spine
DX: Z98.1 Arthrodesis status (principal)
CPT/HCPCS: 97110; 97162; 97164

== ENCOUNTER 2025-01-29 11:27 | Outpatient (RCR) | payer SELFPAY | END 2025-02-15 23:59 | LOC: NS 11:27 | PROVIDERS: PCP Family Medicine; Referring Provider Orthopaedic Surgery; Visit Provider Orthopaedic Surgery Orthopaedic Surgery of the Spine | DX: Z71.3 Dietary counseling and surveillance (principal); E66.9 Obesity, unspecified; Z68.42 Body mass index [BMI] 45.0-49.9, adult | CPT/HCPCS: 97803 ==

== ENCOUNTER 2025-04-24 12:39 | Outpatient (RCR) | payer MEDICARE, SELFPAY ==
--- NOTE | 2025-04-27 20:09 | HP.PTEVAL_ITS ---
Patient's Visit Information Visit Information Visit Information: AURORA SAWYER is a 65 year old F referred to Physical Therapy by Dr. Domenic Samuel DO with a diagnosis of L HIP GREATER TROCH BURSITIS. Date of Evaluation: 04/24/25 Physical Therapist: Nany Vogel PT, Cert MDT Visit Plan Frequency: 2x /Week Duration: 4-6 Weeks Plan: AQUATIC THERAPY FOR L HIP PAIN RELIEF, POSTURE CORRECTION/STRENGTHENING, INSTRUCTION IN APPROPRIATE BODY MECHANICS AND ACTIVITY MODIFICATIONS. LLE ROM, STRETCHING AND STRENGTHENING WITH FOCUS ON L HIP STABILITY TRAINING AND L IT BAND STRETCHING TOLERATED. PLEASE INCLUDE GAIT TRAINING AND CORE STABILITIY EX WITH NEUTRAL SPINE AND INDEP WATER EX INSTRUCTION WELL HEP INSTRUCTION. Subjective Subjective: THIS PATIENT PRESENTS TO PT WITH C/O L HIP PAIN. SHE REPORTS THE HIP INJECTION SHE GOT FROM DR. SAMUEL 04/03/25 DID GIVE HER RELIEF (75%) BUT HER HIP STILL FEELS TIGHT AND SHE STILL HAS PAIN IN HER GROIN THAT WRAPS AROUND TO THE OUTSIDE OF HER HIP TOO. SHE REPORTS SHE NEEDS A L KNEE REPLACEMENT BUT BECAUSE OF HER BACK SURGERY 10/07/24 SHE GAINED WEIGHT AND HAS TOO LOOSE 17 LBS BEFORE SHE CAN HAVE IT. SHE REPORTS SHE STILL HAS BACK PAIN ALONG WITH L KNEE PAIN IN ADDITION TO THIS HIP PAIN. HER HIP PAIN CURRENTLY RANGES 4-7/10. SHE REPORTS SHE COULDN'T EVEN LIFT HER LEG BEFORE SHE GOT THE INJECTION AND NOW SHE CAN MOVE HER LEG/GET IN AND OUT OF A CAR MUCH BETTER AND WALK BETTER. STILL HAVING INCREASED PAIN WITH: WALKING, STANDING, STAIRS. DECREASED PAIN WITH: SITTING, TYLONOL, FLEXERIL, INJECTION. SHE REPORTS HAVING X-RAYS OF BOTH OF HER HIPS BEFORE BACK SURGERY SHOWING A LOT OF ARTHRITIS IN BOTH OF THEM. PATIENT REPORTS SHE IS ON DISABILITY HALFWAY FOR ASTHMA, HUNG SHLD REPLACEMENTS, AND HEART PROBLEMS AND HASN'T WORKED FOR ABOUT 7 YEARS. PMH/Recent major surgery: SPINAL FUSION SEPTEMBER 2024 Alcohol use Substance abuse Arthritis Injury of head and neck GERD (gastroesophageal reflux disease) Former smoker Facet arthritis of lumbar region Degenerative spondylolisthesis COVID-19 vaccine series completed History of COVID-19 Asthma HTN (hypertension) History of cardiac radiofrequency ablation Hx of kidney removal Hx of hysterectomy H/O shoulder surgery H/O knee surgery Objective Objective: THIS PATIENT AMBULATES INDEP'LY INTO PT WITH A SHUFFLE/HOBBLING TYPE GAIT PATTERN WITHOUT AD. NO LOB. DENIES ANY FALLS. STATES HER L KNEE DOES GIVE OUT AND SHE DOES USE A WALKER IF SHE IS GOING LONG DISTANCES WITHOUT THINGS TO REACH FOR. SHE DID NOT BRING WALKER INTO [facility] TODAY. Sensory deficit: DECREASED LIGHT TOUCH R LATERAL LOWER LEG COMPARED TO L. ROM deficit: FULL HUNG KNEE EXT TO > 120 DEG FLEX. HUNG HIP TIGHTNESS ALL PLANES WITH L HIP PAIN >R. Motor deficit: R HIP 3+/5, KNEE EXT 4/5, KNEE FLEX 4-/5, ANKLE 4/5. L HIP 4- /5, KNEE EXT 3+/5, KNEE FLEX 4-/5, ANKLE 4-/5. Lumbar mvmt loss: flex - MOD ext - JUAN MIGUEL R SG - MOD L SG - MOD PATIENT C/O INCREASED LBP WITH LUMBAR ROM TESTING ALL PLANES. Core strength: POOR Palpation: L GREATER TROCH REGION TENDERNESS. TUG TIME: 20.81 SEC WITHOUT AD 30 SEC STS TEST: 8 WITHOUT UE ASSIST Balance/Special Test Scores Lower Extremity Functional Score: 41 Goals Goal 1:: DECREASE C/O L HIP PAIN BY AT LEAST 75% TO EASE ADL'S OVER-ALL. Goal Time Frame: 4-6 Weeks Goal 2:: INCREASE FUNCTIONAL LLE STRENGTH TO EASE ADL'S. Goal Time Frame: 4-6 Weeks Goal 3:: INCREASE LLE FUNCTIONAL ROM TO EASE ADL'S. Goal Time Frame: 4-6 Weeks Goal 4:: PATIENT WILL REPORT DECREASED L HIP PAIN WITH WALKING, STANDING AND STAIR CLIMBING ACTIVITIES BY AT LEAST 50% Goal Time Frame: 4-6 Weeks Goal 5:: PATIENT WILL BE INDEP WITH A WATER EX PROGRAM FOR CONTINUED IMPROVEMENT ONCE FORMAL PHYSICAL THERAPY CONCLUDES. Goal Time Frame: 4-6 Weeks Goal 6:: PATIENT WILL BE INDEP WITH HOME EX PROGRAM FOR CONTINUED IMPROVEMENT ONCE FORMAL PHYSICAL THERAPY CONCLUDES. Goal Time Frame: 4-6 Weeks Rehabilitation Potential Physical Therapy Diagnosis: CORE AND HUNG LE WEAKNESS WITH L HIP TENDERNESS AND C/O CONSTANT L HIP PAIN RANGING 4-7/10 WITH DIFFICULTY WALKING. Rehabilitation Potential: Good Anticipated Interventions Patient/Client Instruction: Educate patient on: Condition, Plan of Care and Risk Factors For the Purpose of:: To improve self management Therapeutic Exercise to Include: Strength training, Flexibilty training, Neur omotor development, In an aquatic setting and Dynamic Lumbar Stabilization For the Purpose of:: To decrease pain, To improve muscle performance and motor function, To increase tolerance to activity/condition/position, To improve ability of physical actions for home/community/work/leisure, To increase flexibility/ROM and To improve self management Manual Therapy Techniques to Include: Soft tissue mobilization For the Purpose of:: To decrease pain and To improve nutrient delivery to tissue Cryotherapy (ice pack, ice massage): Yes Thermo therapy (hot pack): Yes Ultrasound (thermal/non thermal): Yes For the Purpose of:: To decrease pain, To decrease swelling/inflammation and To improve nutrient delivery to tissue Text: Thank you for the opportunity to evaluate your patient. For Medicare and Medicare HMO plans, please review the plan of care and approve it. It will need to be FAXED BACK to us at [phone] for Medicare purposes. For Medicare only, by signing this I certify the plan of care. Please let me know if there are questions or concerns regarding this plan of care. Physician Signature: Date:
--- NOTE | 2025-06-24 14:51 | HP.PT.NRP ---
Patient Information Patient Information: AURORA SAWYER was seen in my office for initial evaluation on 04/24/25. The following Plan of Care was established for this patient: POC Established Initial Frequency: 2x /Week Initial Duration: 4-6 Weeks Anticipated Interventions Patient/Client Instruction: Educate patient on: Condition, Plan of Care and Risk Factors For the Purpose of:: To improve self management Therapeutic Exercise to Include: Strength training, Flexibilty training, Neuromotor development, In an aquatic setting and Dynamic Lumbar Stabilization For the Purpose of:: To decrease pain, To improve muscle performance and motor function, To increase tolerance to activity/condition/position, To improve ability of physical actions for home/community/work/leisure, To increase flexibility/ROM and To improve self management Manual Therapy Techniques to Include: Soft tissue mobilization For the Purpose of:: To decrease pain and To improve nutrient delivery to tissue Cryotherapy (ice pack, ice massage): Yes Thermo therapy (hot pack): Yes Ultrasound (thermal/non thermal): Yes For the Purpose of:: To decrease pain, To decrease swelling/inflammation and To improve nutrient delivery to tissue Last Seen Last Seen: This patient was last seen in our office 04/24/25. Pertinent comments regarding their Physical therapy will appear below: It has been my pleasure to see this patient for a total of 1 visits. This patient has not returned to Physical Therapy for more visits and is appropriate to return to [facility] for further follow-up as needed. At this point I will be discontinuing this patient from physical therapy. I would be happy to see this patient again in the future if found appropriate by the physician. Thank you! Nany Vogel, PT, Cert MDT Balance/Gait/Functional tests Balance/Special Test Scores Lower Extremity Functional Score: 41
== END 2025-04-24 19:00 | disposition home or self-care (01) ==
LOC: PT 12:39
PROVIDERS: PCP Family Medicine; Referring Provider Orthopaedic Surgery; Visit Provider Orthopaedic Surgery
DX: M70.62 Trochanteric bursitis, left hip (principal)
CPT/HCPCS: 97162